=== PATIENT | female | born 1935 | race Caucasian/White ===

== ENCOUNTER 2021-07-20 18:11 | Emergency (ER) | payer MEDICARE, SELFPAY ==
--- NOTE | ~2021-07-20 | XR_ITS ---
EXAMINATION: XR chest 1V portable EXAM DATE: 07/20/2021 19:35 INDICATION: Change in mental status. TECHNIQUE: Portable AP frontal chest x-ray was obtained. There is no prior study for comparison. FINDINGS: The lungs are clear. There are no pleural effusions. The cardiomediastinal silhouette is within normal limits. There is no pneumothorax suspected. There is left humeral head rotator cuff r epair anchor. There are old right rib fractures. Bones are osteopenic. IMPRESSION: No acute cardiopulmonary findings. Reviewed, dictated and finalized at location G.
[2021-07-20 18:31] VITALS: BP 107/68; PULSE 78; RESP 18; TEMP 36.4; O2SAT 98
--- NOTE | 2021-07-20 19:25 | ED.GENADULT ---
HPI - General Adult General Chief complaint: Shortness of Breath/Dyspnea Stated complaint: low O2 Time Seen by Provider: 07/20/21 19:04 History of Present Illness HPI narrative: Patient is a 86-year-old female that presents the emergency department with chief complaint of possible low O2 saturations. Per the EMS report the [facility] although when EMS arrived the patient was saturating in the upper 90s. The patient per the family has been a little bit more confused this week but was found to have a urinary tract infection and was reported to be started on antibiotics. The list of medications from the jail does not show evidence of the patient currently being on antibiotics but we are verifying with the facility at this time. The patient currently has no complaints and is commenting about seals and is putting her stuffed cat in the room. Review of Systems Review of Systems: A 10 system review of systems was completed on the patient and is negative except for what is stated in the HPI. Nursing and ancillary documentation was reviewed. PMFSH Comments Patient's past medical history significant for COPD dementia. Exam Narrative: GENERAL: Well-appearing, well-nourished, and in no acute distress. HEAD: Normocephalic, atraumatic. EYES: PERRLA and EOMI. ENT: Nares clear, no rhinorrhea or epistaxis. Mucous membranes moist. NECK: Supple. CHEST: Clear to auscultation. No respiratory distress. HEART: Regular rate and rhythm. No murmur heard. Normal peripheral pulses. ABDOMEN: Soft, nontender, nondistended, normal active bowel sounds. EXTREMITIES: Normal range of motion. No edema. SKIN: Warm, dry, no rash. NEURO: No focal deficits. Alert and pleasantly confused. PSYCH: Normal mood and affect. Course Vital Signs Vital signs: Vital Signs Temperature 36.4 C 07/20/21 18:31 Pulse Rate 78 07/20/21 18:31 Respiratory Rate 18 07/20/21 18:31 Blood Pressure 107/68 07/20/21 18:31 Pulse Oximetry 98 07/20/21 18:31 Temperature 36.4 C 07/20/21 18:31 Pulse Rate 82 07/20/21 19:30 Respiratory Rate 16 07/20/21 19:30 Blood Pressure 118/68 07/20/21 19:30 Pulse Oximetry 98 07/20/21 19:30 Medical Decision Making Vital Signs Vital Signs: Vital Signs Temperature 36.4 C 07/20/21 18:31 Pulse Rate 78 07/20/21 18:31 Respiratory Rate 18 07/20/21 18:31 Blood Pressure 107/68 07/20/21 18:31 Pulse Oximetry 98 07/20/21 18:31 Temperature 36.4 C 07/20/21 18:31 Pulse Rate 82 07/20/21 19:30 Respiratory Rate 16 07/20/21 19:30 Blood Pressure 118/68 07/20/21 19:30 Pulse Oximetry 98 07/20/21 19:30 Lab Data Result diagrams: 07/20/21 20:19 07/20/21 20:19 Labs: Lab Results 07/20/21 07/20/21 07/20/21 Range/Units 19:54 20:19 20:19 WBC 10.2 H (4.5-10.0) K/mm3 RBC 4.44 (4.2-5.4) M/mm3 Hgb 12.1 (12.0-15.0) g/dL Hct 39.5 (37.0-47.0) % MCV 89.0 (80-100) fl MCH 27.3 (26-34) pg MCHC 30.6 L (32-36) g/dl RDW 15.4 H (11.5-14.5) % Plt Count 107 L (150-375) k/mm3 MPV 11.9 H (7.4-10.4) fl Immature Gran % (Auto) 0.4 (0-0.5) % Neut % (Auto) 92.7 H (45.5-73.1) % Lymph % (Auto) 2.9 L (18.3-44.2) % Hendry % (Auto) 2.6 (2.6-8.5) % Eos % (Auto) 1.2 (0-4.4) % Baso % (Auto) 0.2 (0.2-1.2) % Lymph # (Auto) 0.30 L (0.9-3.2) K/mm3 Hendry # (Auto) 0.3 (0.1-0.6) K/mm3 Eos # (Auto) 0.1 (0-0.3) K/mm3 Baso # (Auto) 0.0 (0.0-0.1) K/mm3 Abs Immat Gran (auto) 0.04 H (0.00-0.031) K/mm3 Absolute Neuts (auto) 9.5 H (1.3-6.7) K/mm3 Absolute Nucleated RBC 0.0 (0.0-0.012) K/mm3 Nucleated RBC % 0.0 (0.0-0.2) % PT (11.1-14.7) Seconds INR APTT (22.3-36.8) SECONDS Sodium (137-145) mmol/L Potassium (3.4-5.0) mmol/L Chloride (98-107) mmol/L Carbon Dioxide (22-30) mmol/L Anion Gap (8-16) m
[2021-07-20 19:30] VITALS: BP 118/68; PULSE 82; RESP 16; O2SAT 98
[2021-07-20 19:55] LABS: Alveolar/Arterial O2 Gradient 50.6 mmHg; Device ROOM AIR; Fractional Inspired Oxygen 21 %; HCO3 ABG 19.8 mEq/l (22.0-26.0); Modified Allen's Test Pass; Oxygen Content ABG 16.6 %vol (16.0-22.0); Oxygen Saturation ABG 91.4 % (95.0-100.0); Oxyhemoglobin 90.9 % THb (90.0-100.0); PCO2 ABG 32.6 mmHg (35.0-45.0); PO2 ABG 60.1 mmHg (80.0-100.0); PO2 FiO2 Ratio Arterial Blood 2.86 %; Site Drawn RIGHT RADIAL; pH ABG 7.402 (7.350-7.450)
[2021-07-20 20:30] VITALS: BP 118/68; PULSE 88; RESP 16; TEMP 36.8; O2SAT 97
[2021-07-20 20:41] LABS: SARS-CoV-2 RNA PCR Negative
[2021-07-20 20:41] LABS: Basophils Percent Auto 0.2 % (0.2-1.2); Eosinophils Absolute Auto 0.1 K/mm3 (0-0.3); Eosinophils Percent Auto 1.2 % (0-4.4); Hematocrit 39.5 % (37.0-47.0); Hemoglobin 12.1 g/dL (12.0-15.0); Immature Granulocyte Absolute 0.04 K/mm3 (0.00-0.031); Immature Granulocyte Percent A 0.4 % (0-0.5); Lymphocytes Percent Auto 2.9 % (18.3-44.2); Mean Corpuscular HGB Conc 30.6 g/dl (32-36); Mean Corpuscular Hemoglobin 27.3 pg (26-34); Mean Platelet Volume 11.9 fl (7.4-10.4); Monocytes Absolute Auto 0.3 K/mm3 (0.1-0.6); Monocytes Percent Auto 2.6 % (2.6-8.5); Neutrophils Absolute Auto 9.5 K/mm3 (1.3-6.7); Neutrophils Percent Auto 92.7 % (45.5-73.1); Platelet Count Result 107 k/mm3 (150-375); Red Blood Count 4.44 M/mm3 (4.2-5.4); Red Cell Distribution Width 15.4 % (11.5-14.5); White Blood Count 10.2 K/mm3 (4.5-10.0)
[2021-07-20 20:52] LABS: Add Urine Microscopic? YES; Alanine Aminotransferase 16 U/L (4-35); Albumin Level 4.2 g/dL (3.5-5.1); Alkaline Phosphatase 79 U/L (38-126); Anion Gap 9 mmol/L (8-16); Appearance Urine Cloudy (Clear); Aspartate Amino Transferase 29 U/L (14-36); Bacteria Urine Trace /hpf; Bilirubin Urine Negative (Negative); Bilirubin,Total 0.6 mg/dL (0.2-1.3); Blood Urea Nitrogen 26 mg/dL (7-17); Blood Urine Negative (Negative); Calcium 8.6 mg/dL (8.4-10.2); Carbon Dioxide 25 mmol/L (22-30); Chloride 103 mmol/L (98-107); Color Urine Yellow (Yellow); Estimated Glomerular Filt Rate 47; Glucose 149 mg/dL (65-110); Glucose Urine UA Negative (Negative); Ketones Urine Negative (Negative); Leukocyte Esterase Ur Trace LEU/UL (Negative); Magnesium 1.9 mg/dL (1.6-2.3); Mucus Urine Rare /lpf; Nitrate Urine Negative (Negative); Protein Urine Negative (Negative); RBC Urine 0-2 /hpf (0-2); Sodium 137 mmol/L (137-145); Specific Grav Ur 1.012 (1.001-1.035); Urobilinogen Urine Negative mg/dL (<2.0)
[2021-07-20 20:55] LABS: Lactic Acid Reflex 2.7 mmol/L (0.7-2.1)
[2021-07-20 20:56] LABS: Prothrombin Time 13.1 Seconds (11.1-14.7)
[2021-07-20 21:04] LABS: NT Pro B Type Natriuretic Pept 567 pg/mL (5-100); Troponin I < 0.012 ng/mL (0.000-0.034)
[2021-07-20] MEDS: cefTRIAXone 2 GM in SODIUM CHLORIDE 0.9% IV 100 ML 200 ML IVPB (21:21)
[2021-07-20 21:30] VITALS: BP 114/70; PULSE 82; RESP 14; TEMP 36.8; O2SAT 96
--- NOTE | 2021-07-20 21:31 | PC.NURSE ---
EKG TO BE CANCELED PER ERP
[2021-07-20 23:37] LABS: Reflex Lactic Acid Yes or No Add Lactic
== END 2021-07-20 22:10 ==
PROVIDERS: Emergency Provider Emergency Medicine
DX: N39.0 Urinary tract infection, site not specified (principal); Z20.822 Contact with and (suspected) exposure to COVID-19; J44.9 Chronic obstructive pulmonary disease, unspecified; F03.90 Unspecified dementia, unspecified severity, without behavioral disturbance, psychotic disturbance, mood disturbance, and anxiety; R06.02 Shortness of breath
CPT/HCPCS: 36415; 36600; 71045; 80053; 81001; 82805; 83605; 83735; 83880; 84484; 85025; 85610; 85730; 87040; 87077; 87086; 87186; 96365; 99284; C9803; J0696; U0003; U0005

== ENCOUNTER 2021-07-26 21:47 | Inpatient (IN) | payer MEDICARE, SELFPAY ==
--- NOTE | ~2021-07-26 | XR_ITS ---
EXAMINATION: XR chest 1V portable INDICATION: Transient alteration of awareness TECHNIQUE: Portable AP chest at 2235 hours COMPARISON: 07/20/2021 FINDINGS: The lungs are free of acute opacities. There is no pleural effusion or pneumothorax. The nv rdia mediastinal silhouette is normal. IMPRESSION: 1. No acute cardiopulmonary abnormality. Reviewed, dictated and finalized at location A.
[2021-07-26 21:47] VITALS: BP 150/71; PULSE 56; RESP 20; O2SAT 100
--- NOTE | 2021-07-26 22:31 | PC.NURSE ---
This RN attempted to al
--- NOTE | 2021-07-26 22:32 | PC.NURSE ---
This RN attempted to call [facility] for more information about what antibiotic pt was taking for UTI. Was informed that there was not a nurse on duty at this time.
[2021-07-26 22:55] VITALS: BP 133/62; PULSE 58; RESP 23
[2021-07-26 22:59] LABS: Basophils Percent Auto 0.5 % (0.2-1.2); Eosinophils Absolute Auto 0.2 K/mm3 (0-0.3); Eosinophils Percent Auto 5.2 % (0-4.4); Hematocrit 34.8 % (37.0-47.0); Hemoglobin 10.8 g/dL (12.0-15.0); Immature Granulocyte Absolute 0.02 K/mm3 (0.00-0.031); Immature Granulocyte Percent A 0.5 % (0-0.5); Lymphocytes Absolute Auto 1.28 K/mm3 (0.9-3.2); Mean Corpuscular Hemoglobin 27.7 pg (26-34); Mean Corpuscular Volume 89.2 fl (80-100); Mean Platelet Volume 10.4 fl (7.4-10.4); Monocytes Absolute Auto 0.4 K/mm3 (0.1-0.6); Monocytes Percent Auto 9.4 % (2.6-8.5); Neutrophils Absolute Auto 2.3 K/mm3 (1.3-6.7); Neutrophils Percent Auto 54.4 % (45.5-73.1); Platelet Count Result 148 k/mm3 (150-375); Red Cell Distribution Width 15.6 % (11.5-14.5); White Blood Count 4.3 K/mm3 (4.5-10.0)
[2021-07-26 23:03] LABS: Add Urine Microscopic? YES; Appearance Urine Cloudy (Clear); Bilirubin Urine Negative (Negative); Color Urine Yellow (Yellow); Glucose Urine UA Negative (Negative); Ketones Urine Trace mg/dL (Negative); Leukocyte Esterase Ur 1+ LEU/UL (Negative); Mucus Urine Rare /lpf; Nitrate Urine Positive (Negative); Protein Urine 1+ mg/dL (Negative); RBC Urine 0-2 /hpf (0-2); Specific Grav Ur 1.018 (1.001-1.035); Squamous Epithelial Cell Urine Rare /hpf (Few); Urobilinogen Urine Negative mg/dL (<2.0); WBC Urine 16-20 /hpf
[2021-07-26 23:11] LABS: Blood Urine Negative (Negative)
[2021-07-26 23:12] LABS: Alanine Aminotransferase 16 U/L (4-35); Albumin Level 3.7 g/dL (3.5-5.1); Alkaline Phosphatase 75 U/L (38-126); Anion Gap 5 mmol/L (8-16); Aspartate Amino Transferase 27 U/L (14-36); Bilirubin,Total 0.4 mg/dL (0.2-1.3); Blood Urea Nitrogen 22 mg/dL (7-17); Calcium 8.6 mg/dL (8.4-10.2); Carbon Dioxide 29 mmol/L (22-30); Chloride 107 mmol/L (98-107); Estimated Glomerular Filt Rate 53; Glucose 80 mg/dL (65-110); Potassium 3.7 mmol/L (3.4-5.0); Sodium 141 mmol/L (137-145)
--- NOTE | 2021-07-26 23:24 | PC.NURSE ---
Pt. requested jello or some kind of snack . This tech got permission from RN and MD that food was okay for pt. Applesauce and Apple juice given.
--- NOTE | 2021-07-26 23:36 | ED.GENADULT ---
HPI - General Adult General Chief complaint: Altered Mental Status Stated complaint: AMS, responsive to pain Time Seen by Provider: 07/26/21 22:06 History of Present Illness HPI narrative: Patient is an 86-year-old female with history of dementia presents to the ER with altered mental status. According to family long term patient was acting more confused throughout the day. Tonight patient was not responding to painful stimuli for long term and patient's daughter. Thus it was decided patient should come be evaluated in the ER. Patient recently seen in the ER and evaluated for UTI. She received some IV ceftriaxone and has been receiving Macrobid at the long term. Urine culture shows E. coli resistant to Macrobid. No reports of patient being incontinent or febrile at the long term. Related Data Home Medications Medication Instructions Recorded Confirmed ferrous sulfate [Slow Release Iron] 45 mg PO BID 07/26/21 07/27/21 vcvshaztymb-avbhliidx-ikyixvxa 1 inh INHALATION DAILY 07/26/21 07/27/21 [Trelegy Ellipta] pantoprazole 40 mg PO BID 07/26/21 07/27/21 pravastatin 20 mg PO HS 07/26/21 07/27/21 quetiapine 25 mg PO BID 07/26/21 07/27/21 acetaminophen 650 mg PO BID 07/27/21 07/27/21 amlodipine 5 mg PO DAILY 07/27/21 07/27/21 aspirin 81 mg PO DAILY 07/27/21 07/27/21 calcium citrate-vitamin D3 1 tablet PO BID 07/27/21 07/27/21 [Calcium Citrate + D] celecoxib 100 mg PO BID 07/27/21 07/27/21 dextromethorphan-guaifenesin 1 tablet PO BID PRN 07/27/21 07/27/21 [Mucinex DM] emollient combination no.72 1 ea TOPICAL BID 07/27/21 07/27/21 [Eucerin Intensive Repair] irbesartan 300 mg PO DAILY 07/27/21 07/27/21 loratadine 10 mg PO DAILY 07/27/21 07/27/21 lorazepam 0.5 mg PO BID PRN 07/27/21 07/27/21 melatonin 5 mg PO HS 07/27/21 07/27/21 memantine 5 mg PO BID 07/27/21 07/27/21 menthol [Icy Hot (menthol)] 1 patch TOPICAL DAILY 07/27/21 07/27/21 metoprolol succinate 100 mg PO DAILY 07/27/21 07/27/21 mirtazapine 15 mg PO HS 07/27/21 07/27/21 multivitamin [TAB A BERENICE] 1 tablet PO DAILY 07/27/21 07/27/21 mupirocin 1 applic TOPICAL BID 07/27/21 07/27/21 suvorexant [Belsomra] 10 mg PO HS 07/27/21 07/27/21 Allergies Allergy/AdvReac Type Severity Reaction Status Date / Time HI Inhibitors Allergy Unknown Verified 07/26/21 22:11 atorvastatin Allergy Unknown Verified 07/26/21 22:11 famotidine Allergy Unknown Verified 07/26/21 22:11 ibuprofen Allergy Unknown Verified 07/26/21 22:11 methylprednisolone Allergy Unknown Verified 07/26/21 22:11 rosuvastatin Allergy Unknown Verified 07/26/21 22:11 Review of Systems Review of Systems: ROS unobtainable: Yes unobtainable due to mental status [facility] Family History Family History (Updated 07/27/21 @ 01:40 by Angela Ricks RN) Father Heart disease Mother Heart disease Social History Social History Years smoked: 70 Smoking status: Former smoker Tobacco type: cigarettes Alcohol intake: never Substance use: never Spiritual care concerns: No Exam Narrative: GENERAL: Well-appearing, well-nourished, and in no acute distress. HEAD: Normocephalic, atraumatic. ENT: Mucous membranes moist. CHEST: Clear to auscultation. No respiratory distress. HEART: Bradycardic and regular. Normal peripheral pulses. ABDOMEN: Soft, nontender, nondistended. EXTREMITIES: Normal range of motion. No edema. SKIN: Warm, dry, no rash. NEURO: Alert and oriented x1. PSYCH: Normal mood and affect. Course Course Emergency Course: Admit to hospitalist service. Patient with ESBL positive E. coli infection. Will start on Zosyn. Vital Signs Vital signs: Vital Signs Pulse Rate 56 L 07/26/21 21:47 Respiratory Rate 20 07/26/21 21:47 Blood Pressure 150/71 H 07/26/21 21:47 Pulse Oximetry 100 04/02/22 21:47 Temperature 97.3 F L 07/27/21 05:50 Pulse Rate 55 L 07/27/21 05:50 Respiratory Rate 14
--- NOTE | 2021-07-26 23:40 | PM.IMHP ---
H&P: HPI History of Present Illness Date/Time: 07/26/21 23:40 Chief Complaint: Altered mental status. Narrative: This is an 86-year-old female with past medical history significant for Alzheimer's dementia, [facility], hypertension. Patient was brought for evaluation to the emergency room after she was noted to be very sleepy and not participating in activities she was not been her usual most of the history has been who is at bedside who explains that she is very active. Preliminary workup was significant for urinalysis with numerous WBCs present. Patient has been admitted for further evaluation, management and treatment. Review of Systems Review of Systems: ROS unobtainable: Yes unobtainable due to medical condition (Advanced dementia) and unobtainable due to mental status (Delirium) [facility] Family History Family History (Updated 07/27/21 @ 01:40 by Angela Ricks RN) Father Heart disease Mother Heart disease Social History Social History Years smoked: 70 Smoking status: Former smoker Tobacco type: cigarettes Alcohol intake: never Substance use: never Spiritual care concerns: No Meds Home Medications and Allergies Home Medications Medication Instructions Recorded Confirmed Type ferrous sulfate [Slow Release Iron] 45 mg PO BID 07/26/21 07/27/21 History eaozqmeknhl-htufsujye-pjwbwywr 1 inh INHALATION DAILY 07/26/21 07/27/21 History [Trelegy Ellipta] pantoprazole 40 mg PO BID 07/26/21 07/27/21 History pravastatin 20 mg PO HS 07/26/21 07/27/21 History quetiapine 25 mg PO BID 07/26/21 07/27/21 History acetaminophen 650 mg PO BID 07/27/21 07/27/21 History amlodipine 5 mg PO DAILY 07/27/21 07/27/21 History aspirin 81 mg PO DAILY 07/27/21 07/27/21 History calcium citrate-vitamin D3 1 tablet PO BID 07/27/21 07/27/21 History [Calcium Citrate + D] celecoxib 100 mg PO BID 07/27/21 07/27/21 History dextromethorphan-guaifenesin 1 tablet PO BID PRN 07/27/21 07/27/21 History [Mucinex DM] emollient combination no.72 1 ea TOPICAL BID 07/27/21 07/27/21 History [Eucerin Intensive Repair] irbesartan 300 mg PO DAILY 07/27/21 07/27/21 History loratadine 10 mg PO DAILY 07/27/21 07/27/21 History lorazepam 0.5 mg PO BID PRN 07/27/21 07/27/21 History melatonin 5 mg PO HS 07/27/21 07/27/21 History memantine 5 mg PO BID 07/27/21 07/27/21 History menthol [Icy Hot (menthol)] 1 patch TOPICAL DAILY 07/27/21 07/27/21 History metoprolol succinate 100 mg PO DAILY 07/27/21 07/27/21 History mirtazapine 15 mg PO HS 07/27/21 07/27/21 History multivitamin [TAB A BERENICE] 1 tablet PO DAILY 07/27/21 07/27/21 History mupirocin 1 applic TOPICAL BID 07/27/21 07/27/21 History suvorexant [Belsomra] 10 mg PO HS 07/27/21 07/27/21 History Allergies Allergy/AdvReac Type Severity Reaction Status Date / Time HI Inhibitors Allergy Unknown Verified 07/26/21 22:11 atorvastatin Allergy Unknown Verified 07/26/21 22:11 famotidine Allergy Unknown Verified 07/26/21 22:11 ibuprofen Allergy Unknown Verified 07/26/21 22:11 methylprednisolone Allergy Unknown Verified 07/26/21 22:11 rosuvastatin Allergy Unknown Verified 07/26/21 22:11 Vital Signs Vital Signs - 24 hr 07/26/21 21:47 07/26/21 22:55 Pulse Rate 56 L 58 L Respiratory Rate 20 23 H Blood Pressure 150/71 H 133/62 Pulse Oximetry 100 Exam Narrative: Patient is laying in bed Const: General: comfortable, no acute distress, well developed and patient obtunded Nutritional Appearance: thin Orientation/consciousness: oriented to person HENMT: Head: normal to inspection, normocephalic and atraumatic Ears: hearing grossly normal bilaterally Face and sinus: normal facial exam Mouth: Yes Normal oral and palatal mucosa present Eyes: General: appearance normal, both eyes and all related structures Alignment and Position: alignment normal Sclera: sclerae normal Pupils: Equal, r
--- NOTE | 2021-07-27 00:27 | PC.NURSE ---
Per housekeeping worker, one visitor may stay with pt overnight.
[2021-07-27 00:41] VITALS: BP 143/102; PULSE 56; RESP 18; O2SAT 94
--- NOTE | 2021-07-27 00:41 | PC.NURSE ---
Pt resting/sleeping on stretcher, family at bedside. Updated on POC.
[2021-07-27 01:12] VITALS: BP 130/59; PULSE 59; RESP 16; TEMP 36.9; O2SAT 97
[2021-07-27 03:49] VITALS: O2SAT 94
[2021-07-27 05:50] VITALS: BP 145/63; PULSE 55; RESP 14; TEMP 36.3; O2SAT 93
[2021-07-27 07:53] LABS: Basophils Percent Auto 0.6 % (0.2-1.2); Eosinophils Absolute Auto 0.2 K/mm3 (0-0.3); Eosinophils Percent Auto 4.4 % (0-4.4); Hematocrit 36.7 % (37.0-47.0); Hemoglobin 11.4 g/dL (12.0-15.0); Immature Granulocyte Absolute 0.01 K/mm3 (0.00-0.031); Immature Granulocyte Percent A 0.2 % (0-0.5); Lymphocytes Absolute Auto 1.03 K/mm3 (0.9-3.2); Lymphocytes Percent Auto 20.4 % (18.3-44.2); Mean Corpuscular HGB Conc 31.1 g/dl (32-36); Mean Corpuscular Hemoglobin 27.3 pg (26-34); Mean Platelet Volume 10.4 fl (7.4-10.4); Monocytes Absolute Auto 0.4 K/mm3 (0.1-0.6); Monocytes Percent Auto 7.7 % (2.6-8.5); Neutrophils Absolute Auto 3.4 K/mm3 (1.3-6.7); Neutrophils Percent Auto 66.7 % (45.5-73.1); Platelet Count Result 160 k/mm3 (150-375); Red Blood Count 4.17 M/mm3 (4.2-5.4); Red Cell Distribution Width 15.6 % (11.5-14.5)
[2021-07-27 08:03] LABS: Anion Gap 5 mmol/L (8-16); Blood Urea Nitrogen 20 mg/dL (7-17); Calcium 8.4 mg/dL (8.4-10.2); Carbon Dioxide 27 mmol/L (22-30); Chloride 108 mmol/L (98-107); Estimated Glomerular Filt Rate 53; Glucose 88 mg/dL (65-110); Potassium 3.8 mmol/L (3.4-5.0); Sodium 140 mmol/L (137-145)
[2021-07-27] MEDS: FLUTICASONE/UMECLIDIN/VILANTER 100-62.5-25 MCG ELLIPTA 1 PUFF INHALATION (08:19)
[2021-07-27] MEDS: ACETAMINOPHEN 325 MG TABLET 650 MG PO ×2 (09:12→16:29)
[2021-07-27] MEDS: QUEtiapine FUMARATE 25 MG TABLET PO ×2 (09:12→20:24)
[2021-07-27] MEDS: FERROUS SULFATE DRIED 142 MG TABCR PO ×2 (09:12→16:29)
[2021-07-27] MEDS: IRBESARTAN 150 MG TABLET 300 MG PO (09:12)
[2021-07-27] MEDS: amLODIPine BESYLATE 5 MG TABLET PO (09:12)
[2021-07-27] MEDS: MEMANTINE 5 MG TABLET PO ×2 (09:12→16:29)
[2021-07-27] MEDS: PANTOPRAZOLE 40 MG TABLET PO ×2 (09:12→20:24)
[2021-07-27] MEDS: MULTIVITAMINS THERAPEUTIC TAB (*BKC) 1 TABLET PO (09:12)
[2021-07-27] MEDS: ASPIRIN 81 MG ENTERIC TABLET PO (09:12)
[2021-07-27] MEDS: EUCERIN CREAM 120 GM JAR 1 APPLIC TOPICAL ×2 (09:13→20:24)
[2021-07-27] MEDS: MUPIROCIN 2% OINT 22 GM TUBE 1 APPLIC TOPICAL ×2 (09:13→20:24)
--- NOTE | 2021-07-27 09:49 | PM.IMPN ---
Progress Note: A&P Assessment and Plan (1) AMS (altered mental status): Code(s): R41.82 - Altered mental status, unspecified Status: Acute Assessment and Plan: Likely 2/[address] head as patient is improving at this time. -Check TSH with AM labs -Continue Zosyn for UTI Supportive care (2) Urinary tract infection: Code(s): N39.0 - Urinary tract infection, site not specified Status: Acute Assessment and Plan: Improved wakefulness. UCX from 07/20 shows ESBL E. coli only sensitive to ertapenem and zosyn. Will continue zosyn for now. For discharge when returnt to [facility] patient can be switched to ertapenem dailly dosing. 07/26 UCX pending. -Continue piperacillin-tazobactam #2 -May need Urology consult versus outpatient follow up with Urolology as patient has had multiple UTIs recently. (3) Alzheimer's dementia: Code(s): G30.9 - Alzheimer's disease, unspecified; F02.80 - Dementia in other diseases classified elsewhere without behavioral disturbance Status: Acute Assessment and Plan: Continue memantine (4) Hypertension: Code(s): I10 - Essential (primary) hypertension Status: Acute Assessment and Plan: Continue irbesartan. Controlledl. Subjective Date/time seen: Date of Service 07/27/21 08:49 Daughter is at bedside feeding the patient this morning. Brother is an sales support specialist. Daughter says at baseline patient knows her first name. She is always very energetic and moving around. Over the past year she has been successful with weight gain going from 89lbs to 130s now. Daughter feels she looks much better this morning but is still not back to her baseline. Should the patient not get to her baseline we discussed whether the daughter would want an aggressive workup of MRI, EEG, Neurology consult and she declined. Daughter says patient initially had a UTI two weeks ago and has been having difficulty since that time. Patient denies pain. Review of Systems Psychiatric: Psychiatric: Reports confusion Exam Narrative: GENERAL: NAD, cooperative, sitting in bed awake HEENT: Normocephalic, atraumatic, anicteric NECK: Supple CV: Normal S1, S2, RRR, No MRG RESP: CTAB, Normal work of breathing. Abdomen: Soft, non-tender, non-distended, +BS EXTREMITIES: Warm and well perfused, no clubbing, cyanosis, or edema. SKIN: warm, dry and intact. NEURO: Follows commands and will answer simple questions Objective Data Vital Signs Vital Signs: Vital Signs - 24 hr 07/26/21 21:47 07/26/21 22:55 07/27/21 00:41 Temperature Pulse Rate 56 L 58 L 56 L Respiratory Rate 20 23 H 18 Blood Pressure 150/71 H 133/62 143/102 H Pulse Oximetry 100 94 07/27/21 01:12 07/27/21 03:49 07/27/21 05:50 Temperature 98.5 F 97.3 F L Pulse Rate 59 L 55 L Respiratory Rate 16 14 Blood Pressure 130/59 L 145/63 H Pulse Oximetry 97 94 93 Intake/Output Intake/Output: Intake & Output 07/24/21 07/25/21 07/26/21 07/27/21 23:59 23:59 23:59 23:59 Intake Total 160 Output Total 300 Balance -300 160 Meds/Results Medications: Active Medications Generic Name Dose Route Start Last Admin Trade Name Freq PRN Reason Stop Dose Admin Acetaminophen 650 mg 07/27/21 00:07 Acetaminophen 325 Mg Tablet PO Q4H PRN Mild Pain (1-3) or Fever Acetaminophen 650 mg 07/27/21 09:00 07/27/21 09:12 Acetaminophen 325 Mg Tablet PO 08/26/21 08:59 650 mg BID IRIS Administration Hydrocodone Bitart/Acetaminophen 1 tab 07/27/21 00:07 Hydrocodone/Acetaminophen (*Crx) 5-325 Mg Tablet PO Q4H PRN Pain Rated 4-6 Amlodipine Besylate 5 mg 07/27/21 09:00 07/27/21 09:12 Amlodipine Besylate 5 Mg Tablet PO 5 mg DAILY IRIS Administration Aspirin 81 mg 07/27/21 09:00 07/27/21 09:12 Aspirin 81 Mg Enteric Tablet PO 08/26/21 08:59 81 mg DAILY IRIS Administration Calcium Citrate 1 tablet 07/27/21 09:00
[2021-07-27 14:38] VITALS: BP 104/38; PULSE 52; RESP 14; TEMP 36.3; O2SAT 93
[2021-07-27] MEDS: MELATONIN 5 MG TABLET PO (20:24)
[2021-07-27] MEDS: MIRTAZAPINE 15 MG TABLET PO (20:24)
[2021-07-27] MEDS: PRAVASTATIN SODIUM 20 MG TABLET PO (20:24)
[2021-07-27 22:00] VITALS: BP 118/47; PULSE 59; RESP 18; TEMP 36.3; O2SAT 96
[2021-07-28 05:13] LABS: Basophils Percent Auto 0.7 % (0.2-1.2); Eosinophils Absolute Auto 0.2 K/mm3 (0-0.3); Eosinophils Percent Auto 4.9 % (0-4.4); Hematocrit 39.8 % (37.0-47.0); Hemoglobin 12.2 g/dL (12.0-15.0); Immature Granulocyte Absolute 0.03 K/mm3 (0.00-0.031); Immature Granulocyte Percent A 0.7 % (0-0.5); Lymphocytes Absolute Auto 1.31 K/mm3 (0.9-3.2); Lymphocytes Percent Auto 30.6 % (18.3-44.2); Mean Corpuscular HGB Conc 30.7 g/dl (32-36); Mean Corpuscular Hemoglobin 27.3 pg (26-34); Mean Platelet Volume 10.2 fl (7.4-10.4); Monocytes Absolute Auto 0.4 K/mm3 (0.1-0.6); Monocytes Percent Auto 9.6 % (2.6-8.5); Neutrophils Absolute Auto 2.3 K/mm3 (1.3-6.7); Neutrophils Percent Auto 53.5 % (45.5-73.1); Platelet Count Result 149 k/mm3 (150-375); Red Blood Count 4.47 M/mm3 (4.2-5.4); Red Cell Distribution Width 15.5 % (11.5-14.5); White Blood Count 4.3 K/mm3 (4.5-10.0)
[2021-07-28 05:39] LABS: Anion Gap 5 mmol/L (8-16); Blood Urea Nitrogen 19 mg/dL (7-17); Calcium 8.6 mg/dL (8.4-10.2); Carbon Dioxide 28 mmol/L (22-30); Chloride 109 mmol/L (98-107); Estimated Glomerular Filt Rate 47; Glucose 85 mg/dL (65-110); Potassium 4.1 mmol/L (3.4-5.0); Sodium 142 mmol/L (137-145)
[2021-07-28 05:54] LABS: Iron 35 ug/dL (37-170)
[2021-07-28 06:00] VITALS: BP 134/62; PULSE 55; RESP 18; TEMP 35.9; O2SAT 96
[2021-07-28 06:03] LABS: Percent Iron Saturation 15 % (20-50)
[2021-07-28 08:00] VITALS: BP 125/59; PULSE 65; RESP 18; TEMP 37; O2SAT 92
--- NOTE | 2021-07-28 08:30 | P.PNIM_ITS ---
Progress Note: A&P Assessment and Plan (1) Acute metabolic encephalopathy: Code(s): G93.41 - Metabolic encephalopathy Status: Acute Assessment and Plan: * Secondary to UTI/Dementia * Looks like she just finished a course of Macrobid for ESBL * Await urine cultures * Continue dementia medications * Check TSH 1.630 * Continue Zosyn for UTI * Supportive care (2) Urinary tract infection: Code(s): N39.0 - Urinary tract infection, site not specified Status: Acute Assessment and Plan: * Improved wakefulness * UCX from 07/20 shows ESBL E. coli (ESBL) * Continue zosyn, will probably need to be switched to Ertapenem * will likely need to be on prolonged antibiotic therapy * Urine culture grew isolated gram negative bacilli * Looks like she finished a course of Macrobid, however, was not susceptible * Might need IV antibiotics, however, do not think that she failed PO antibiotics as she was put a an antibiotic that was not susceptible (3) Alzheimer's dementia: Code(s): G30.9 - Alzheimer's disease, unspecified; F02.80 - Dementia in other diseases classified elsewhere without behavioral disturbance Status: Acute Assessment and Plan: * Continue memantine and Seroquel * Trend mood (4) Hypertension: Code(s): I10 - Essential (primary) hypertension Status: Acute Assessment and Plan: * Current BP is 124/50 * Continue irbesartan, metoprolol, and amlodipine * Trend BP * Adjust therapy as indicated (5) Chronic anemia: Code(s): D64.9 - Anemia, unspecified Status: Acute Assessment and Plan: * H/H on arrival was 10.8/34.8, H/H 12.2/39.8 currently * MCV in the high 80s * Anemia labs shows iron 35, TIBC 233, % sat 15, Ferritin 69.40, B12 914, Folate >20.0 * Home iron is 45mg PO BID * Change to 324mg PO BID * Trend H/H * Seems to be from chronic disease * Continue to trend H/H * Supplement as indicated Time Spent With Patient Time with patient: Greater than 35 minutes Subjective Date/time seen: 07/28/21 08:30 Interval history: Date/Time: 07/26/21 23:40 Narrative: This is an 86-year-old female with past medical history significant for Alzheimer's dementia, [facility], hypertension. Patient was brought for evaluation to the emergency room after she was noted to be very sleepy and not participating in activities she was not been her usual most of the history has been who is at bedside who explains that she is very active. Preliminary workup was significant for urinalysis with numerous WBCs present. Patient has been admitted for further evaluation, management and treatment. Date/time seen: 07/27/21 08:49 Daughter is at bedside feeding the patient this morning. Brother is an mercerizer. Daughter says at baseline patient knows her first name. She is always very energetic and moving around. Over the past year she has been successful with weight gain going from 89lbs to 130s now. Daughter feels she looks much better this morning but is still not back to her baseline. Should the patient not get to her baseline we discussed whether the daughter would want an aggressive workup of MRI, EEG, Neurology consult and she declined. Daughter says patient initially had a UTI two weeks ago and has been having difficulty since that time. Patient denies pain Date/time seen: 07/28/21 0830 Patient has been through a lot her life. Talked to her daugh
--- NOTE | 2021-07-28 08:30 | PM.IMPN ---
Progress Note: A&P Assessment and Plan (1) Acute metabolic encephalopathy: Code(s): G93.41 - Metabolic encephalopathy Status: Acute Assessment and Plan: Secondary to UTI/Dementia Looks like she just finished a course of Macrobid for ESBL Await urine cultures Continue dementia medications Check TSH 1.630 Continue Zosyn for UTI Supportive care (2) Urinary tract infection: Code(s): N39.0 - Urinary tract infection, site not specified Status: Acute Assessment and Plan: Improved wakefulness UCX from 07/20 shows ESBL E. coli (ESBL) Continue zosyn, will probably need to be switched to Ertapenem will likely need to be on prolonged antibiotic therapy Urine culture grew isolated gram negative bacilli Looks like she finished a course of Macrobid, however, was not susceptible Might need IV antibiotics, however, do not think that she failed PO antibiotics as she was put a an antibiotic that was not susceptible (3) Alzheimer's dementia: Code(s): G30.9 - Alzheimer's disease, unspecified; F02.80 - Dementia in other diseases classified elsewhere without behavioral disturbance Status: Acute Assessment and Plan: Continue memantine and Seroquel Trend mood (4) Hypertension: Code(s): I10 - Essential (primary) hypertension Status: Acute Assessment and Plan: Current BP is 124/50 Continue irbesartan, metoprolol, and amlodipine Trend BP Adjust therapy as indicated (5) Chronic anemia: Code(s): D64.9 - Anemia, unspecified Status: Acute Assessment and Plan: H/H on arrival was 10.8/34.8, H/H 12.2/39.8 currently MCV in the high 80s Anemia labs shows iron 35, TIBC 233, % sat 15, Ferritin 69.40, B12 914, Folate >20.0 Home iron is 45mg PO BID Change to 324mg PO BID Trend H/H Seems to be from chronic disease Continue to trend H/H Supplement as indicated Time Spent With Patient Time with patient: Greater than 35 minutes Subjective Date/time seen: 07/28/21 08:30 Interval history: Date/Time: 07/26/21 23:40 Narrative: This is an 86-year-old female with past medical history significant for Alzheimer's dementia, patient resides at [facility], hypertension. Patient was brought for evaluation to the emergency room after she was noted to be very sleepy and not participating in activities she was not been her usual most of the history has been who is at bedside who explains that she is very active. Preliminary workup was significant for urinalysis with numerous WBCs present. Patient has been admitted for further evaluation, management and treatment. Date/time seen: 07/27/21 08:49 Daughter is at bedside feeding the patient this morning. Brother is an coat repair inspector. Daughter says at baseline patient knows her first name. She is always very energetic and moving around. Over the past year she has been successful with weight gain going from 89lbs to 130s now. Daughter feels she looks much better this morning but is still not back to her baseline. Should the patient not get to her baseline we discussed whether the daughter would want an aggressive workup of MRI, EEG, Neurology consult and she declined. Daughter says patient initially had a UTI two weeks ago and has been having difficulty since that time. Patient denies pain Date/time seen: 07/28/21 0830 Patient has been through a lot her life. Talked to her daughter due to patient not really wanting to talk or contribute much. Patient denied any nausea, vomiting. She did say she was having chest pain and shortness of breath however she did not appear to have a hard time breathing. I did talk to her daughter about her current problem of not really being treated for the correct UTI. We did go over her past medical history. Patient stated that her mom is far from baseline as the patient does not who she has. Review of Syste
[2021-07-28 08:33] LABS: Folic Acid > 20.0 ng/mL (2.76->20)
[2021-07-28] MEDS: amLODIPine BESYLATE 5 MG TABLET PO (08:38)
[2021-07-28] MEDS: IRBESARTAN 150 MG TABLET 300 MG PO (08:38)
[2021-07-28] MEDS: ACETAMINOPHEN 325 MG TABLET 650 MG PO ×2 (08:38→17:29)
[2021-07-28] MEDS: QUEtiapine FUMARATE 25 MG TABLET PO ×2 (08:38→20:16)
[2021-07-28] MEDS: FERROUS SULFATE DRIED 142 MG TABCR PO ×2 (08:38→17:29)
[2021-07-28] MEDS: ASPIRIN 81 MG ENTERIC TABLET PO (08:38)
[2021-07-28] MEDS: MULTIVITAMINS THERAPEUTIC TAB (*BKC) 1 TABLET PO (08:38)
[2021-07-28] MEDS: PANTOPRAZOLE 40 MG TABLET PO ×2 (08:38→20:16)
[2021-07-28] MEDS: MEMANTINE 5 MG TABLET PO ×2 (08:39→17:30)
[2021-07-28] MEDS: MUPIROCIN 2% OINT 22 GM TUBE 1 APPLIC TOPICAL ×2 (08:39→20:19)
[2021-07-28] MEDS: EUCERIN CREAM 120 GM JAR 1 APPLIC TOPICAL ×2 (08:39→20:19)
[2021-07-28] MEDS: ENOXAPARIN 30 MG/0.3 ML SYRINGE SUB-Q (08:41)
[2021-07-28] MEDS: FLUTICASONE/UMECLIDIN/VILANTER 100-62.5-25 MCG ELLIPTA 1 PUFF INHALATION (11:45)
[2021-07-28 11:49] VITALS: O2SAT 94
[2021-07-28 14:00] VITALS: BP 124/50; PULSE 70; RESP 18; TEMP 36.9; O2SAT 95
[2021-07-28 16:00] VITALS: BP 122/52; PULSE 72; RESP 18; TEMP 36.7; O2SAT 95
[2021-07-28] MEDS: MIRTAZAPINE 15 MG TABLET PO (20:16)
[2021-07-28] MEDS: PRAVASTATIN SODIUM 20 MG TABLET PO (20:16)
[2021-07-28] MEDS: MELATONIN 5 MG TABLET PO (20:16)
[2021-07-28 22:00] VITALS: BP 120/52; PULSE 71; RESP 18; TEMP 36.1; O2SAT 97
[2021-07-29 06:00] VITALS: BP 116/86; PULSE 74; RESP 20; TEMP 36.4; O2SAT 98
[2021-07-29 06:04] LABS: Basophils Percent Auto 0.9 % (0.2-1.2); Eosinophils Absolute Auto 0.2 K/mm3 (0-0.3); Eosinophils Percent Auto 4.9 % (0-4.4); Hematocrit 37.2 % (37.0-47.0); Hemoglobin 11.9 g/dL (12.0-15.0); Immature Granulocyte Absolute 0.01 K/mm3 (0.00-0.031); Immature Granulocyte Percent A 0.3 % (0-0.5); Lymphocytes Absolute Auto 1.21 K/mm3 (0.9-3.2); Lymphocytes Percent Auto 34.7 % (18.3-44.2); Mean Corpuscular Hemoglobin 27.9 pg (26-34); Mean Corpuscular Volume 87.1 fl (80-100); Mean Platelet Volume 10.9 fl (7.4-10.4); Monocytes Absolute Auto 0.3 K/mm3 (0.1-0.6); Monocytes Percent Auto 8.3 % (2.6-8.5); Neutrophils Absolute Auto 1.8 K/mm3 (1.3-6.7); Neutrophils Percent Auto 50.9 % (45.5-73.1); Platelet Count Result 146 k/mm3 (150-375); Red Blood Count 4.27 M/mm3 (4.2-5.4); Red Cell Distribution Width 15.3 % (11.5-14.5); White Blood Count 3.5 K/mm3 (4.5-10.0)
[2021-07-29 06:12] LABS: Alanine Aminotransferase 12 U/L (4-35); Albumin Level 3.5 g/dL (3.5-5.1); Alkaline Phosphatase 69 U/L (38-126); Anion Gap 8 mmol/L (8-16); Aspartate Amino Transferase 22 U/L (14-36); Bilirubin,Total 0.2 mg/dL (0.2-1.3); Blood Urea Nitrogen 19 mg/dL (7-17); Calcium 8.3 mg/dL (8.4-10.2); Carbon Dioxide 24 mmol/L (22-30); Chloride 110 mmol/L (98-107); Estimated Glomerular Filt Rate 53; Glucose 78 mg/dL (65-110); Magnesium 2.3 mg/dL (1.6-2.3); Potassium 3.6 mmol/L (3.4-5.0); Sodium 142 mmol/L (137-145)
[2021-07-29 08:00] VITALS: BP 118/82; PULSE 73; RESP 20; TEMP 36.4; O2SAT 98
[2021-07-29] MEDS: ENOXAPARIN 30 MG/0.3 ML SYRINGE SUB-Q (08:35)
[2021-07-29] MEDS: IRBESARTAN 150 MG TABLET 300 MG PO (08:35)
[2021-07-29] MEDS: ACETAMINOPHEN 325 MG TABLET 650 MG PO (08:35)
[2021-07-29] MEDS: ASPIRIN 81 MG ENTERIC TABLET PO (08:36)
[2021-07-29] MEDS: FERROUS SULFATE DRIED 142 MG TABCR PO (08:36)
[2021-07-29] MEDS: MEMANTINE 5 MG TABLET PO (08:36)
[2021-07-29] MEDS: amLODIPine BESYLATE 5 MG TABLET PO (08:36)
[2021-07-29] MEDS: MULTIVITAMINS THERAPEUTIC TAB (*BKC) 1 TABLET PO (08:36)
[2021-07-29] MEDS: QUEtiapine FUMARATE 25 MG TABLET PO (08:36)
[2021-07-29] MEDS: PANTOPRAZOLE 40 MG TABLET PO (08:37)
[2021-07-29] MEDS: MUPIROCIN 2% OINT 22 GM TUBE 1 APPLIC TOPICAL (08:38)
[2021-07-29] MEDS: EUCERIN CREAM 120 GM JAR 1 APPLIC TOPICAL (08:38)
[2021-07-29] MEDS: ALBUTEROL SULFATE NEB 2.5 MG/0.5 ML INH (09:07)
[2021-07-29] MEDS: FLUTICASONE/UMECLIDIN/VILANTER 100-62.5-25 MCG ELLIPTA 1 PUFF INHALATION (09:08)
[2021-07-29] MEDS: IPRATROPIUM BR 0.02% INH SOLN 0.5 MG/2.5 ML VIAL (09:08)
[2021-07-29 09:09] VITALS: O2SAT 94
--- NOTE | 2021-07-29 10:00 | P.DS_ITS ---
DS: Admitting Diagnosis Discharge Date 07/29/21 1000 Admitting Diagnosis UTI DS: Discharge Diagnosis Discharge Diagnosis (1) Acute metabolic encephalopathy: Code(s): G93.41 - Metabolic encephalopathy Status: Acute Assessment and Plan: * Looks like this has resolved for the time being * Secondary to UTI/Dementia * Looks like she just finished a course of Macrobid for ESBL * Await urine cultures * Continue dementia medications * Check TSH 1.630 * Continue Zosyn for UTI * Supportive care (2) Urinary tract infection: Code(s): N39.0 - Urinary tract infection, site not specified Status: Acute Assessment and Plan: * Improved wakefulness * UCX from 07/20 shows ESBL E. coli (ESBL) * Continue zosyn, will probably need to be switched to Ertapenem for DC * will likely need to be on prolonged antibiotic therapy x 10 days * Urine culture grew isolated gram negative bacilli * Looks like she finished a course of Macrobid, however, was not susceptible * Might need IV antibiotics, however, do not think that she failed PO antibiotics as she was put a an antibiotic that was not susceptible (3) Alzheimer's dementia: Code(s): G30.9 - Alzheimer's disease, unspecified; F02.80 - Dementia in other diseases classified elsewhere without behavioral disturbance Status: Acute Assessment and Plan: * Continue memantine and Seroquel * Trend mood (4) Hypertension: Code(s): I10 - Essential (primary) hypertension Status: Acute Assessment and Plan: * Current BP is 124/50 * Continue irbesartan, metoprolol, and amlodipine * Trend BP * Adjust therapy as indicated (5) Chronic anemia: Code(s): D64.9 - Anemia, unspecified Status: Acute Assessment and Plan: * H/H on arrival was 10.8/34.8, H/H 11.9/37.2 currently * MCV in the high 80s * Anemia labs shows iron 35, TIBC 233, % sat 15, Ferritin 69.40, B12 914, Folate >20.0 * Home iron is 45mg PO BID * Change to 324mg PO BID * Trend H/H * Seems to be from chronic disease * Continue to trend H/H * Supplement as indicated DS: Summary Hospital Course Hospital Course: Patient is an 86-year-old female with a past medical history of polio, COPD, kidney stones, bladder cancer with sling placement, Alzheimer's who presented to the ED with prolonged drowsiness, weakness, lethargy. UA was positive for UTI. UTI did grow ESBL. Patient was started on IV Zosyn due to previous susceptibilities of recent UTI. Patient had just recently finished a c ourse of Macrobid however this was not susceptible to the bacteria that was growing. Patient was also noted to be confused, unable to identify her daughter, unable to walk. Patient's daughter has been at bedside and has been communicated the plan of care. Patient's daughter would like the patient also have PT and OT and is where the patient will be discharged on IV antibiotics for total of 10 days. Patient denies any chest pain, shortness of breath, nausea, vomiting, diarrhea, constipation, weakness or fatigue patient does fissure tray peer it was noted that she is having issues with her thighs and having pain. Daughter states patient has returned back to baseline and is able to talk to her, knows who she is and is able to move around and carry complete conversations. Patient is stable for discharge at this time. Daughter, patient and I all agree to discharge and care transition mgr has found placement for her at [facility].
--- NOTE | 2021-07-29 10:00 | PM.DS ---
DS: Admitting Diagnosis Discharge Date 07/29/21 1000 Admitting Diagnosis UTI DS: Discharge Diagnosis Discharge Diagnosis (1) Acute metabolic encephalopathy: Code(s): G93.41 - Metabolic encephalopathy Status: Acute Assessment and Plan: Looks like this has resolved for the time being Secondary to UTI/Dementia Looks like she just finished a course of Macrobid for ESBL Await urine cultures Continue dementia medications Check TSH 1.630 Continue Zosyn for UTI Supportive care (2) Urinary tract infection: Code(s): N39.0 - Urinary tract infection, site not specified Status: Acute Assessment and Plan: Improved wakefulness UCX from 07/20 shows ESBL E. coli (ESBL) Continue zosyn, will probably need to be switched to Ertapenem for DC will likely need to be on prolonged antibiotic therapy x 10 days Urine culture grew isolated gram negative bacilli Looks like she finished a course of Macrobid, however, was not susceptible Might need IV antibiotics, however, do not think that she failed PO antibiotics as she was put a an antibiotic that was not susceptible (3) Alzheimer's dementia: Code(s): G30.9 - Alzheimer's disease, unspecified; F02.80 - Dementia in other diseases classified elsewhere without behavioral disturbance Status: Acute Assessment and Plan: Continue memantine and Seroquel Trend mood (4) Hypertension: Code(s): I10 - Essential (primary) hypertension Status: Acute Assessment and Plan: Current BP is 124/50 Continue irbesartan, metoprolol, and amlodipine Trend BP Adjust therapy as indicated (5) Chronic anemia: Code(s): D64.9 - Anemia, unspecified Status: Acute Assessment and Plan: H/H on arrival was 10.8/34.8, H/H 11.9/37.2 currently MCV in the high 80s Anemia labs shows iron 35, TIBC 233, % sat 15, Ferritin 69.40, B12 914, Folate >20.0 Home iron is 45mg PO BID Change to 324mg PO BID Trend H/H Seems to be from chronic disease Continue to trend H/H Supplement as indicated DS: Summary Hospital Course Hospital Course: Patient is an 86-year-old female with a past medical history of polio, COPD, kidney stones, bladder cancer with sling placement, Alzheimer's who presented to the ED with prolonged drowsiness, weakness, lethargy. UA was positive for UTI. UTI did grow ESBL. Patient was started on IV Zosyn due to previous susceptibilities of recent UTI. Patient had just recently finished a course of Macrobid however this was not susceptible to the bacteria that was growing. Patient was also noted to be confused, unable to identify her daughter, unable to walk. Patient's daughter has been at bedside and has been communicated the plan of care. Patient's daughter would like the patient also have PT and OT and is where the patient will be discharged on IV antibiotics for total of 10 days. Patient denies any chest pain, shortness of breath, nausea, vomiting, diarrhea, constipation, weakness or fatigue patient does fissure tray peer it was noted that she is having issues with her thighs and having pain. Daughter states patient has returned back to baseline and is able to talk to her, knows who she is and is able to move around and carry complete conversations. Patient is stable for discharge at this time. Daughter, patient and I all agree to discharge and child care center administrator has found placement for her at [facility]. Status at Discharge Functional status at discharge: uses cane/walker Time Spent with Patient Time attestation: Total time spent providing and/or coordinating discharge services:48 minutes Time spent: Greater than 30 minutes Specific discharge activities: Diagnostic testing, chart review, developing a treatment plan, education, care coordination documentation, physical exam, result review Exam Const: General: comfortable, no acute distress,
[2021-07-29 11:54] LABS: Rapid Plasma Reagin Non-Reactive (NonReactive)
[2021-07-29] MEDS: LORazepam (*CRX) 0.5 MG TABLET PO (13:23)
[2021-07-29 14:00] VITALS: BP 120/80; PULSE 74; RESP 20; TEMP 36.4; O2SAT 98
[2021-07-29] MEDS: LIDOCAINE HCL 1% LOCAL INJ 2 ML AMPUL 5 ML INFILTRATE (14:20)
[2021-07-29] MEDS: ERTAPENEM SODIUM 0.5 GM in SODIUM CHLORIDE 0.9% IV 50 ML IVPB (15:08)
[2021-07-29 15:45] LABS: EDCOVIDSCREEN Negative (Negative)
== END 2021-07-29 16:20 | DRG 689 ==
LOC: ANHED 22:06 → ANH2MED 07-27 00:33
PROVIDERS: Family Medicine; Admitting Provider Internal Medicine; Emergency Provider Emergency Medicine; Visit Provider Nurse Practitioner
DX: N39.0 Urinary tract infection, site not specified (principal); G93.41 Metabolic encephalopathy; Z16.12 Extended spectrum beta lactamase (ESBL) resistance; G30.9 Alzheimer's disease, unspecified; F02.80 Dementia in other diseases classified elsewhere, unspecified severity, without behavioral disturbance, psychotic disturbance, mood disturbance, and anxiety; I10 Essential (primary) hypertension; D64.9 Anemia, unspecified; J44.9 Chronic obstructive pulmonary disease, unspecified; Z20.822 Contact with and (suspected) exposure to COVID-19; Z79.82 Long term (current) use of aspirin; Z79.899 Other long term (current) drug therapy; Z85.51 Personal history of malignant neoplasm of bladder; Z86.12 Personal history of poliomyelitis; Z87.442 Personal history of urinary calculi; Z87.891 Personal history of nicotine dependence
CPT/HCPCS: 36415; 36569; 51701; 71045; 80048; 80053; 81001; 82607; 82728; 82746; 83540; 83550; 83735; 84443; 85025; 86592; 87077; 87086; 87186; 87426; 94640; 96365; 96366; 96372; 97161; 97165; 99285; A9270; C1751; C9803; G0378; J1335; J1650; J2543

== ENCOUNTER 2021-08-01 11:09 | Emergency (ER) | payer MEDICARE, SELFPAY ==
--- NOTE | ~2021-08-01 | XR_ITS ---
EXAMINATION: XR chest 1V portable DATE: 08/01/2021 11:51 INDICATION: PICC line removal TECHNIQUE: frontal view of the chest was obtained. COMPARISON: Chest radiograph date FINDINGS: Couple tiny calcified nodules in the left upper lung zone consistent with old granulomatous disease. Linear discoid atelectasis/scarring at the medial right lower lung zone. Several thin lines along the periphery of the right lower lung zone which could represent mild pulmonary edema or additional atel ectasis. No pneumothorax or pleural effusion. The cardiomediastinal silhouette is normal. Suture anch ors at the left humeral head consistent with prior rotator cuff repair. Mild thoracic dextro curvatur e. IMPRESSION: 1. Fine peripheral linear opacities at the right lower lung zone which could represent atelectasis or mild pulmonary edema. Reviewed, dictated and finalized at location B. IMPRESSION: 1. Fine peripheral linear opacities at the right lower lung zone which could re present atelectasis or mild pulmonary edema.
[2021-08-01 11:21] VITALS: BP 127/89; PULSE 72; RESP 18; TEMP 36.6; O2SAT 98
[2021-08-01] MEDS: LORazepam (*CRX) 0.5 MG TABLET PO (12:22)
[2021-08-01 13:50] LABS: Basophils Percent Auto 0.6 % (0.2-1.2); Eosinophils Absolute Auto 0.2 K/mm3 (0-0.3); Eosinophils Percent Auto 3.5 % (0-4.4); Hematocrit 37.8 % (37.0-47.0); Hemoglobin 11.3 g/dL (12.0-15.0); Immature Granulocyte Absolute 0.02 K/mm3 (0.00-0.031); Immature Granulocyte Percent A 0.4 % (0-0.5); Lymphocytes Absolute Auto 0.94 K/mm3 (0.9-3.2); Lymphocytes Percent Auto 18.3 % (18.3-44.2); Mean Corpuscular HGB Conc 29.9 g/dl (32-36); Mean Corpuscular Hemoglobin 27.4 pg (26-34); Mean Corpuscular Volume 91.5 fl (80-100); Mean Platelet Volume 10.8 fl (7.4-10.4); Monocytes Absolute Auto 0.3 K/mm3 (0.1-0.6); Monocytes Percent Auto 5.3 % (2.6-8.5); Neutrophils Absolute Auto 3.7 K/mm3 (1.3-6.7); Neutrophils Percent Auto 71.9 % (45.5-73.1); Platelet Count Result 141 k/mm3 (150-375); Red Blood Count 4.13 M/mm3 (4.2-5.4); Red Cell Distribution Width 15.5 % (11.5-14.5); White Blood Count 5.1 K/mm3 (4.5-10.0)
[2021-08-01 13:57] LABS: Alanine Aminotransferase 16 U/L (4-35); Alkaline Phosphatase 81 U/L (38-126); Anion Gap 8 mmol/L (8-16); Aspartate Amino Transferase 28 U/L (14-36); Bilirubin,Total 0.2 mg/dL (0.2-1.3); Blood Urea Nitrogen 18 mg/dL (7-17); Calcium 8.3 mg/dL (8.4-10.2); Carbon Dioxide 22 mmol/L (22-30); Chloride 111 mmol/L (98-107); Estimated CRCL calculation 29 ml/min; Estimated Glomerular Filt Rate 60; Glucose 87 mg/dL (65-110); Potassium 4.2 mmol/L (3.4-5.0); Sodium 141 mmol/L (137-145)
[2021-08-01] MEDS: ERTAPENEM 1 GM/NS 50 ML 1 GM/50 ML BAG IVPB (14:01)
--- NOTE | 2021-08-01 14:10 | PCCCNOTE ---
met with patient and daughter bedside. patient came from [facility] re[facility], was admitted there for IV abx. Per [facility] Henok, patient will not longer need iv abx, and would like to discharge to her assisted living. daughter states she resides at [facility]. CC called and confirmed with [facility] that they would accept back. They requested nurse to nurse report. [phone]. ED nurse made aware. CC will continue to follow for any other needs that may arise.
--- NOTE | 2021-08-01 14:17 | ED.GENADULT ---
HPI - General Adult General Chief complaint: Unspecified Stated complaint: picc pulled out Time Seen by Provider: 08/01/21 11:18 Source: RN notes reviewed History of Present Illness HPI narrative: Patient presents to emergency department from [facility] via private vehicle for PICC line replacement. Per the patient's daughter the patient has been admitted to our facility and recently discharge patient had ESBL in has been on ertapenem the patient had pulled out her PICC line last night her last dose of antibiotics was yesterday. Per the daughter she is here to get replaced that she still has 4 more days of antibiotics the patient has been doing well and had had altered mental status upon her admission but that has improved she has had some mild diarrhea per the daughter patient currently awake alert denies any fevers or chills Related Data Home Medications Medication Instructions Recorded Confirmed Trelegy Ellipta 1 inh INHALATION DAILY 07/26/21 07/27/21 ferrous sulfate 45 mg PO BID 07/26/21 07/27/21 pantoprazole 40 mg PO BID 07/26/21 07/27/21 pravastatin 20 mg PO HS 07/26/21 07/27/21 quetiapine 25 mg PO BID 07/26/21 07/27/21 Belsomra 10 mg PO HS 07/27/21 07/27/21 Eucerin Intensive Repair 1 ea TOPICAL BID 07/27/21 07/27/21 Icy Hot (menthol) 1 patch TOPICAL DAILY 07/27/21 07/27/21 Mucinex DM 1 tablet PO BID PRN 07/27/21 07/27/21 acetaminophen 650 mg PO BID 07/27/21 07/27/21 amlodipine 5 mg PO DAILY 07/27/21 07/27/21 aspirin 81 mg PO DAILY 07/27/21 07/27/21 calcium citrate-vitamin D3 1 tablet PO BID 07/27/21 07/27/21 [Calcium Citrate + D] celecoxib 100 mg PO BID 07/27/21 07/27/21 irbesartan 300 mg PO DAILY 07/27/21 07/27/21 loratadine 10 mg PO DAILY 07/27/21 07/27/21 melatonin 5 mg PO HS 07/27/21 07/27/21 memantine 5 mg PO BID 07/27/21 07/27/21 metoprolol succinate 100 mg PO DAILY 07/27/21 07/27/21 mirtazapine 15 mg PO HS 07/27/21 07/27/21 multivitamin 1 tablet PO DAILY 07/27/21 07/27/21 mupirocin 1 applic TOPICAL BID 07/27/21 07/27/21 Allergies Allergy/AdvReac Type Severity Reaction Status Date / Time HI Inhibitors Allergy Unknown Verified 07/26/21 22:11 atorvastatin Allergy Unknown Verified 07/26/21 22:11 famotidine Allergy Unknown Verified 07/26/21 22:11 ibuprofen Allergy Unknown Verified 07/26/21 22:11 methylprednisolone Allergy Unknown Verified 07/26/21 22:11 rosuvastatin Allergy Unknown Verified 07/26/21 22:11 Review of Systems Review of Systems: Gen.: Denies fevers or chills ENT: Denies congestion Respiratory: Denies shortness of breath CV: Denies chest pain GI: Denies abdominal pain nausea, emesis reports diarrhea see HPI Musculoskeletal: Denies back pain or muscle pain Neuro: Denies numbness, tingling, weakness or focal weakness Skin: Denies rash Except as documented, all other systems reviewed and negative [facility] Past Medical History Medical History (Updated 08/01/21 @ 14:22 by Delmer Hernandez DO) Hypertension Family History Family History (Updated 07/27/21 @ 01:40 by Angela Ricks RN) Father Heart disease Mother Heart disease Social History Social History Years smoked: 70 Smoking status: Former smoker Tobacco type: cigarettes Alcohol intake: never Substance use: never Spiritual care concerns: No Exam Narrative: APPEARANCE: No acute distress, nontoxic, resting in bed EYES: EOMI HEENT: Normocephalic, atraumatic, OMM RESPIRATORY: No respiratory distress Clear to auscultation bilaterally with no rhonchi wheezing or rales. CARDIOVASCULAR: Regular rate and rhythm without murmurs rubs or gallops. ABDOMINAL: Soft, nontender, nondistended, no rebound or guarding MUSCULOSKELETAl: Moves all extremities. No clubbing, cyanosis or edema. NEURO: Awake and alert x 1. Following commands, speech normal, no focal deficits SKIN:: Warm, dry. No rashes lesions or abrasions PSYCHIATRIC: Normal affect/mood, Course Course Emerg
--- NOTE | 2021-08-01 14:32 | PC.NURSE ---
taj called and report given
== END 2021-08-01 14:24 ==
PROVIDERS: Emergency Provider Emergency Medicine
DX: N39.0 Urinary tract infection, site not specified (principal); I10 Essential (primary) hypertension; F03.90 Unspecified dementia, unspecified severity, without behavioral disturbance, psychotic disturbance, mood disturbance, and anxiety; Z87.891 Personal history of nicotine dependence; Z79.82 Long term (current) use of aspirin; R91.8 Other nonspecific abnormal finding of lung field
CPT/HCPCS: 36415; 71045; 80053; 85025; 96365; 99284; A9270; C1751; J1335

== ENCOUNTER 2021-12-30 03:03 | Inpatient (IN) | payer MEDICARE, SELFPAY ==
[2021-12-30] VITALS (17 sets, daily range): BP systolic 130–219; BP diastolic 56–103; PULSE 49–70; RESP 12–24; TEMP 36.3–36.9; O2SAT 92–97; BMI 10.0
--- NOTE | ~2021-12-30 | XR_ITS ---
EXAMINATION: XR wrist LT min 3V DATE: 12/30/2021 04:44 INDICATION: Left wrist injury. TECHNIQUE: 3 views of left wrist were obtained. COMPARISON: None. FINDINGS: There is a transverse fracture of distal radial metaphysis. The distal fracture fragment de monstrates 9 mm dorsal displacement, impaction, and dorsal angulation. There is 11 degrees dorsal til t of the distal articular surface. There is a transverse fracture of distal ulnar metaphysis. The dis smith fracture fragment demonstrates 4 mm dorsal displacement, 3 mm ulnar displacement, impaction, and 14 degrees dorsal angulation. There is severe osteoarthritis of first carpometacarpal joint. IMPRESSION: 1. Transverse fractures of distal radial and ulnar metaphyses. Reviewed, dictated and finalized at location A.
--- NOTE | ~2021-12-30 | XR_ITS ---
EXAMINATION: XR surgery orthopedic DATE: 01/01/2022 16:35 INDICATION: Fixation of a left wrist fracture TECHNIQUE: 5 fluoroscopic images of the left wrist were obtained during procedure performed by Dr. Hamilton lowry. Radiologist was not present for the imaging or procedure. The amount of fluoroscopy time us ed during this procedure was 2.5 minutes. COMPARISON: None. FINDINGS: Again seen are comminuted extra-articular fractures of the distal left radial and ulnar metaphyses. I nterval reduction and percutaneous fixation of the fractures with 6 fixation pins. There is mild resi dual displacement of the fragments post reduction of the prior angulation and with near-anatomic alig nment at the level of the wrist joint. Additional fracture across the base of the ulnar styloid proce ss which is displaced a few millimeter radially. It is unclear whether the ulnar styloid fragment is fixed with one of the pins. No other fractures identified. 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 Moderate osteoarthritis at the triscaphe joint. IMPRESSION: 1. Fluoroscopy utilized during reduction and percutaneous pin fixation of comminuted fracture of the distal left radius and ulna which are in near anatomic alignment. Reviewed, dictated and finalized at location A. IMPRESSION: 1. Fluoroscopy utilized during reduction and percutaneous pin fixation of commi nuted fracture of the distal left radius and ulna which are in near anatomic al ignment.
--- NOTE | ~2021-12-30 | CT_ITS ---
EXAMINATION: CT brain wo con DATE: 12/30/2021 04:19 INDICATION: Fall. TECHNIQUE: Computed tomography (CT) of the head was performed without intravenous contrast. The mA wa s adjusted according to patient size. Iterative reconstruction technique was employed. The dose-lengt h product was 605.33 mGy-cm. COMPARISON: None FINDINGS: There is diffuse brain volume loss. There are scattered areas of low attenuation in the cer ebral white matter. There are prominent perivascular spaces in the bilateral basal ganglia. There is no intracranial hemorrhage, acute infarction, or abnormal intracranial mass lesion. The ventricles ar e normal in size. There are likely changes of ocular lens replacement surgeries. There is mild mucosa l thickening in the ethmoid sinuses. The mastoid air cells are normal. IMPRESSION: 1. Moderate nonspecific cerebral white matter disease, which likely represents chronic small vessel i schemic disease. Reviewed, dictated and finalized at location A. IMPRESSION: 1. Moderate nonspecific cerebral white matter disease, which likely represents chronic small vessel ischemic disease.
--- NOTE | ~2021-12-30 | XR_ITS ---
EXAMINATION: XR hip LT 2V w AP pelvis DATE: 12/30/2021 10:48 INDICATION: Left leg pain. TECHNIQUE: An anteroposterior view of the pelvis and 2 views of left hip were obtained. COMPARISON: None. FINDINGS: Bone alignment is normal. No fracture. There is mild osteoarthritis of the hips. There is a stent in the area of right common iliac artery. IMPRESSION: 1. Mild osteoarthritis of the hips. Reviewed, dictated and finalized at location A.
--- NOTE | ~2021-12-30 | XR_ITS ---
EXAMINATION: XR knee LT min 4V DATE: 12/30/2021 10:48 INDICATION: Left leg pain. TECHNIQUE: 4 views of left knee were obtained. COMPARISON: None. FINDINGS: Bone alignment is normal. No fracture. There is mild osteoarthritis of medial and patellofe moral compartments. There is chondrocalcinosis of the menisci. No knee joint effusion. IMPRESSION: 1. Mild left knee osteoarthritis. Reviewed, dictated and finalized at location A.
--- NOTE | ~2021-12-30 | XR_ITS ---
EXAMINATION: XR wrist LT 2V DATE: 12/30/2021 06:05 INDICATION: Distal left radius fracture. TECHNIQUE: 2 views of left wrist were obtained. COMPARISON: Left wrist radiographs at 4:29 AM FINDINGS: There is a comminuted fracture of distal radial metaphysis. The main distal fracture fragme nt demonstrates 10 mm dorsal displacement, impaction, and dorsal angulation. There is 16 degrees dors al tilt of the distal articular surface. There is a transverse fracture of distal ulnar metaphysis. T he distal fracture fragment demonstrates 6 mm dorsal displacement, impaction, and 33 degrees dorsal a ngulation. There is an avulsion fracture of the ulnar styloid. There is severe osteoarthritis of firs t carpometacarpal joint. IMPRESSION: 1. Comminuted fractures of distal radius and ulna. Reviewed, dictated and finalized at location A.
--- NOTE | ~2021-12-30 | US_ITS ---
EXAMINATION: US art doppler w press LE BI DATE: 12/31/2021 08:31 INDICATION: Peripheral arterial disease. TECHNIQUE: Segmental pressures and plethysmographic and Doppler waveforms of the brachial and lower e xtremity arteries were obtained. COMPARISON: None. FINDINGS: Right brachial artery pressure is 132 mm Hg. There is a cast on the left arm. Pressures were not measured in the thighs and below the knee due to the history of stents in uncertai n locations. The right ankle-brachial index (OSMANI) is 0.78 (normal >= 0.9-1.0). The right great toe-br achial index (TBI) is 0.35 (normal >= 0.65). Arterial Doppler waveforms are biphasic from common femo ral artery to the ankle. The left OSMANI is 0.70. The left TBI is 0.16. Arterial Doppler waveforms are biphasic from common femor al artery to the ankle. IMPRESSION: 1. Mildly decreased right OSMANI and moderately decreased left OSMANI, consistent with arterial occlusive d isease. Reviewed, dictated and finalized at location A. IMPRESSION: 1. Mildly decreased right OSMANI and moderately decreased left OSMANI, consistent wit h arterial occlusive disease.
[2021-12-30] MEDS: MORPHINE SULFATE (*CRX) 4 MG/ML INJ IV PUSH (03:42)
[2021-12-30] MEDS: SODIUM CHLORIDE 0.9% IV 100 ML 500 ML (03:42)
--- NOTE | 2021-12-30 04:49 | ED.GENADULT ---
HPI - General Adult General Chief complaint: Extremity Injury, Upper Stated complaint: Fall, wrist injury Time Seen by Provider: 12/30/21 03:08 History of Present Illness HPI narrative: Patient is an 86-year-old female with history of dementia who presents the ER status post fall. Deformity to the left wrist. Unsure if she hit her head. Able to move fingers and stents in the hand but can provide no history. Patient is not on any blood thinning medication. Related Data Home Medications Medication Instructions Recorded Confirmed fluticasone fur. 100 mcg-umeclid 1 inh inhalation DAILY 07/26/21 12/30/21 62.5 mcg-vilant 25 mcg inhalat.powder (Trelegy Ellipta) pantoprazole 40 mg tablet,delayed 40 mg PO BID 07/26/21 12/30/21 release pravastatin 20 mg tablet 20 mg PO HS 07/26/21 12/30/21 quetiapine 25 mg tablet 25 mg PO TID 07/26/21 12/30/21 acetaminophen 650 mg tablet 650 mg PO TID 07/27/21 12/30/21 amlodipine 5 mg tablet 5 mg PO DAILY 07/27/21 12/30/21 celecoxib 100 mg capsule 100 mg PO BID 07/27/21 12/30/21 emollient combination no.72 1 ea topical BID 07/27/21 12/30/21 (Eucerin Intensive Repair lotion) irbesartan 300 mg tablet 300 mg PO DAILY 07/27/21 12/30/21 loratadine 10 mg tablet 10 mg PO DAILY 07/27/21 12/30/21 memantine 5 mg tablet 5 mg PO BID 07/27/21 12/30/21 menthol 5 % topical patch (Icy Hot 1 patch topical DAILY 07/27/21 12/30/21 (menthol)) metoprolol succinate 100 mg 100 mg PO DAILY 07/27/21 12/30/21 tablet,extended release 24 hr multivitamin 1 tablet PO DAILY 07/27/21 12/30/21 mupirocin 2 % topical ointment 1 applic topical BID 07/27/21 12/30/21 aspirin 81 mg tablet,delayed 81 mg PO DAILY 12/30/21 12/30/21 release diclofenac sodium 1 % topical gel 1 ea topical QID 12/30/21 12/30/21 divalproex 125 mg capsule,delayed 250 mg PO BID 12/30/21 12/30/21 release sprinkle eszopiclone 2 mg tablet 2 mg PO HS 12/30/21 12/30/21 Allergies Allergy/AdvReac Type Severity Reaction Status Date / Time HI Inhibitors Allergy Unknown Verified 12/30/21 13:51 atorvastatin Allergy Unknown Verified 12/30/21 13:51 famotidine Allergy Unknown Verified 12/30/21 13:51 ibuprofen Allergy Unknown Verified 12/30/21 13:51 methylprednisolone Allergy Unknown Verified 12/30/21 13:51 rosuvastatin Allergy Unknown Verified 12/30/21 13:51 Review of Systems Review of Systems: ROS unobtainable: Yes unobtainable due to mental status PMFSH Past Medical History Medical History Alzheimer's dementia COPD (chronic obstructive pulmonary disease) E coli infection Fractured tarsal bone GERD (gastroesophageal reflux disease) Hypercholesterolemia Hypertension Left wrist fracture Neck fracture Pelvis fracture Peripheral vascular disease Polio Urinary bladder cancer 2017 Surgical History Surgical History H/O cardiac catheterization H/O cystoscopy S/P peripheral artery angioplasty with stent placement S/P rotator cuff repair Family History Family History Father Heart disease Mother Heart disease Social History Social History Social History: The patient resides at [facility]. She is and has 2 children. 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 She is a former smoker. She has 2 children and the daughter is the durable power trademark attorney for healthcare. Code status DNR Years smoked: 35 Smoking status: Former smoker Tobacco type: cigarettes Alcohol intake: never Substance use: never Spiritual care concerns: Yes (Yazdanism) Exam Narrative: GENERAL: Uncomfortable-appearing, well-nourished, and in no acute distress. HEAD: Normocephalic, atraumatic. EYES: PERRL and EOMI. NECK: Supple. CHES
[2021-12-30] MEDS: fentaNYL CITRATE INJ (*CRX) 100 MCG/2 ML VIAL 25 MCG IV PUSH (05:30)
[2021-12-30] MEDS: ceFAZolin 2 GM/D5W 50 ML 2 GM/50 ML BAG IVPB (06:19)
[2021-12-30 07:29] LABS: Basophils Percent Auto 0.4 % (0.2-1.2); Eosinophils Absolute Auto 0.1 K/mm3 (0-0.3); Eosinophils Percent Auto 1.1 % (0-4.4); Hematocrit 38.8 % (37.0-47.0); Hemoglobin 12.1 g/dL (12.0-15.0); Immature Granulocyte Absolute 0.01 K/mm3 (0.00-0.031); Immature Granulocyte Percent A 0.2 % (0-0.5); Mean Corpuscular HGB Conc 31.2 g/dl (32-36); Mean Corpuscular Hemoglobin 27.4 pg (26-34); Mean Corpuscular Volume 87.8 fl (80-100); Mean Platelet Volume 11.3 fl (7.4-10.4); Monocytes Absolute Auto 0.3 K/mm3 (0.1-0.6); Monocytes Percent Auto 5.9 % (2.6-8.5); Neutrophils Absolute Auto 3.7 K/mm3 (1.3-6.7); Neutrophils Percent Auto 81.4 % (45.5-73.1); Platelet Count Result 115 k/mm3 (150-375); Red Blood Count 4.42 M/mm3 (4.2-5.4); Red Cell Distribution Width 13.8 % (11.5-14.5); White Blood Count 4.6 K/mm3 (4.5-10.0)
[2021-12-30 07:42] LABS: Anion Gap 16 mmol/L (8-16); Blood Urea Nitrogen 24 mg/dL (7-17); Calcium 8.4 mg/dL (8.4-10.2); Carbon Dioxide 25 mmol/L (22-30); Chloride 101 mmol/L (98-107); Estimated Glomerular Filt Rate 60; Glucose 104 mg/dL (65-110); Potassium 3.9 mmol/L (3.4-5.0); Sodium 142 mmol/L (137-145)
--- NOTE | 2021-12-30 08:45 | PC.NURSE ---
Jeovany from ED Care Coordination in to eval pt
--- NOTE | 2021-12-30 08:59 | PCCCNOTE ---
Called to ED regarding proper placement for pt after fall and L wrist fracture. Currently pt resides at [facility] [place] assisted living and memory care. pt currently resting and is asleep from MSO4. I spoke with daughter SHERRY. Discussed options to moving to [facility] as indicated it would only be slightly more than current cost of [facility]. No specific number discussed. Daughter concerned that pt would become more confused and would deteriorate at a NH. I am currently attempting to contact [facility] for possible options.
--- NOTE | 2021-12-30 09:45 | PC.NURSE ---
PT in the department to erica pt
[2021-12-30 09:59] LABS: Appearance Urine Clear (Clear); Bilirubin Urine Negative (Negative); Blood Urine Negative (Negative); Color Urine Yellow (Yellow); Glucose Urine UA Negative (Negative); Ketones Urine Negative (Negative); Leukocyte Esterase Ur Negative LEU/UL (Negative); Nitrate Urine Negative (Negative); Protein Urine Negative (Negative); Specific Grav Ur 1.015 (1.001-1.035); Urobilinogen Urine 0.2 mg/dL (<2.0)
[2021-12-30 10:00] LABS: Add Urine Microscopic? NO
--- NOTE | 2021-12-30 10:30 | PC.NURSE ---
Patient to radiology
--- NOTE | 2021-12-30 11:14 | PCCCNOTE ---
Spoke with MICHELLE at [facility] and she had spoken with daughter. The DON stated that pt can return to [facility]; fi there are any pain meds they need to be sent with a physical script for them to process and administer. Spoke with daughter and still hopeful for acute rehab after PT evaluation. Further testing being done.
--- NOTE | 2021-12-30 12:32 | PM.IMHP ---
H&P: HPI History of Present Illness Date/Time: 12/30/21 12:32 Chief Complaint: Upper extremity pain Narrative: This is a 86-year-old female who came from the memory care unit which was formally known as [facility]. The patient has a history of dementia and has had multiple falls. The patient does typically walk with a walker but has been on steady since she has been complaining of having leg pain. The patient's daughters at the bedside answering questions. The patient is very lethargic at this time. The daughter does not want the patient to return to [facility] at this time but would rather place her in rehab to get her stronger. The daughter thought that possibly the patient had a UTI since she gets very weak with UTIs. However her urinalysis was negative today. The left knee shows some mild left knee osteoarthritis. Left hip shows mild osteoarthritis of the hips. Wrist x-ray shows transfers fractures of distal radial and ulnar metaphyses. Head CT was read as moderate nonspecific cerebral white matter disease which likely represents chronic small vessel ischemic disease. Orthopedic physician Dr. Walker was notified and it was felt that reduction was susceptible with splinting and that the patient may follow-up in a couple days and a decision will be made whether to cast or have a closed reduction. There was some concern about a laceration over the ulnar aspect of the arm and patient received Ancef 2 g. The patient is being admitted to observation status on the date of service of 12/30/2021 Review of Systems Review of Systems: See HPI All systems reviewed & are unremarkable except as noted in HPI and below Constitutional: Constitutional: Reports as per HPI and Reports no additional constitutional complaints Eyes: Eyes: Reports as per HPI and Reports no additional eye complaints ENT: Reports system reviewed and no additional complaints, except as documented and Reports Normal hearing present Cardiovascular: Cardiovascular: Reports no additional cardiovascular complaints Respiratory: Respiratory: Reports no additional respiratory complaints and Reports no additional respiratory complaints Gastrointestinal: Gastrointestinal: Reports as per HPI and Reports no additional gastrointestinal complaints Musculoskeletal: Musculoskeletal: Reports no additional musculoskeletal complaints Integumentary/Breasts: Skin/Breast: Reports system reviewed and no additional complaints, except as docu and Reports as per HPI Neurologic: Reports system reviewed and no additional complaints, except as documented, Reports as per HPI and Reports Normal hearing present Psychiatric: Psychiatric: Reports no additional psychiatric complaints and Reports as per HPI Endocrine: Endocrine: Reports no additional endocrine complaints Hematologic/Lymphatic: Hematologic/Lymphatic: Reports no additional hematologic/lymphatic complaints Allergic/Immunologic: Allergic/Immunologic: Reports no additional allergic/immunologic complaints [facility] Past Medical History Medical History (Updated 12/30/21 @ 14:40 by Soraya Pascual NP) Alzheimer's dementia COPD (chronic obstructive pulmonary disease) E coli infection Fractured tarsal bone GERD (gastroesophageal reflux disease) Hypercholesterolemia Hypertension Left wrist fracture Neck fracture Pelvis fracture Polio Urinary bladder cancer 2017 Surgical History Surgical History (Updated 12/30/21 @ 12:48 by Soraya Pascual NP) H/O cardiac catheterization H/O cystoscopy S/P peripheral artery angioplasty with stent placement S/P rotator cuff repair Family History Family History Father Heart disease Mother Heart disease Social History Social History (Updated 12/30/21 @ 14:41 by Soraya Pascual NP) Social History: The patient resides at [facility]. She is and has 2 children. 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
--- NOTE | 2021-12-30 14:17 | ADMGEN ---
This patient, Bekah Kitchen, was admitted to 3 [facility] Surg Room 304-01. Report received from VASHTI Zhang. Patient/family oriented to hospital policies and general routines including ID bracelet, bed and alarms, visiting hours, pain management, procedures, bathroom and other care routines, personal items, smoking policy, room service/diet, and visiting hours. Information on how to activate the Rapid Response Team has been discussed. Patient/Family are encouraged to report perceived risks to care and to ask questions if they do not understand what they are told or what they should do.
[2021-12-30] MEDS: DICLOFENAC SODIUM 1% 100 GM GEL (*BKC) 1 APPLIC TOPICAL ×2 (17:06→21:16)
[2021-12-30] MEDS: MEMANTINE 5 MG TABLET PO (17:07)
[2021-12-30] MEDS: DIVALPROEX SODIUM SPRINKLE 125 MG CAP.DR 250 MG PO (17:07)
[2021-12-30] MEDS: CELECOXIB 100 MG CAPSULE PO (17:07)
[2021-12-30] MEDS: QUEtiapine FUMARATE 25 MG TABLET PO (17:25)
[2021-12-30] MEDS: PRAVASTATIN SODIUM 20 MG TABLET PO (21:16)
[2021-12-30] MEDS: PANTOPRAZOLE 40 MG TABLET PO (21:16)
[2021-12-31 06:00] VITALS: BP 189/82; PULSE 65; RESP 20; TEMP 36.6; O2SAT 94
[2021-12-31 06:00] LABS: Basophils Percent Auto 0.6 % (0.2-1.2); Eosinophils Absolute Auto 0.1 K/mm3 (0-0.3); Eosinophils Percent Auto 3.5 % (0-4.4); Hemoglobin 12.2 g/dL (12.0-15.0); Immature Granulocyte Absolute 0.01 K/mm3 (0.00-0.031); Immature Granulocyte Percent A 0.3 % (0-0.5); Lymphocytes Absolute Auto 0.93 K/mm3 (0.9-3.2); Lymphocytes Percent Auto 27.4 % (18.3-44.2); Mean Corpuscular HGB Conc 30.5 g/dl (32-36); Mean Corpuscular Hemoglobin 27.4 pg (26-34); Mean Corpuscular Volume 89.7 fl (80-100); Mean Platelet Volume 11.3 fl (7.4-10.4); Monocytes Absolute Auto 0.3 K/mm3 (0.1-0.6); Monocytes Percent Auto 9.7 % (2.6-8.5); Neutrophils Percent Auto 58.5 % (45.5-73.1); Platelet Count Result 113 k/mm3 (150-375); Red Blood Count 4.46 M/mm3 (4.2-5.4); White Blood Count 3.4 K/mm3 (4.5-10.0)
--- NOTE | 2021-12-31 06:00 | PC.NURSE ---
Pt slept through the night. Daughter is very helpful with pt. Pt takes medication crushed in pudding. Pt resting comfortably. Pt wearing depends from home. Will continue to monitor pt.
[2021-12-31 06:05] LABS: Lactic Acid Reflex 0.7 mmol/L (0.7-2.0)
[2021-12-31 06:08] LABS: Alanine Aminotransferase 8 U/L (6-35); Albumin Level 3.7 g/dL (3.5-5.1); Alkaline Phosphatase 103 U/L (38-126); Anion Gap 9 mmol/L (8-16); Aspartate Amino Transferase 25 U/L (14-36); Bilirubin,Total 0.5 mg/dL (0.2-1.3); Blood Urea Nitrogen 27 mg/dL (7-17); Calcium 8.7 mg/dL (8.4-10.2); Carbon Dioxide 26 mmol/L (22-30); Chloride 106 mmol/L (98-107); Estimated Glomerular Filt Rate 47; Glucose 92 mg/dL (65-110); Magnesium 2.2 mg/dL (1.6-2.3); Potassium 3.4 mmol/L (3.4-5.0); Sodium 141 mmol/L (137-145)
[2021-12-31] MEDS: hydrALAZINE HCL 20 MG/ML VIAL 10 MG IV PUSH (07:23)
[2021-12-31] MEDS: MUPIROCIN 2% OINT 22 GM TUBE 1 APPLIC TOPICAL ×2 (08:44→17:03)
[2021-12-31] MEDS: DICLOFENAC SODIUM 1% 100 GM GEL (*BKC) 1 APPLIC TOPICAL ×4 (08:45→20:08)
[2021-12-31] MEDS: EUCERIN CREAM 120 GM JAR 1 APPLIC TOPICAL ×2 (08:45→17:01)
[2021-12-31 08:47] VITALS: PULSE 76; O2SAT 96
[2021-12-31] MEDS: METOPROLOL SUCCINATE EXT REL 100 MG TABCR PO (08:47)
[2021-12-31] MEDS: FLUTICASONE/UMECLIDIN/VILANTER 100-62.5-25 MCG ELLIPTA 1 PUFF INHALATION (08:47)
[2021-12-31] MEDS: IRBESARTAN 150 MG TABLET 300 MG PO (08:47)
[2021-12-31] MEDS: MULTIVITAMINS THERAPEUTIC TAB (*BKC) 1 TABLET PO (08:48)
[2021-12-31] MEDS: ASPIRIN 81 MG ENTERIC TABLET PO (08:49)
[2021-12-31] MEDS: DIVALPROEX SODIUM SPRINKLE 125 MG CAP.DR 250 MG PO ×2 (08:50→17:00)
[2021-12-31] MEDS: MEMANTINE 5 MG TABLET PO ×2 (08:51→17:00)
[2021-12-31] MEDS: QUEtiapine FUMARATE 25 MG TABLET PO ×3 (08:51→17:04)
[2021-12-31] MEDS: amLODIPine BESYLATE 5 MG TABLET PO (08:52)
[2021-12-31] MEDS: CELECOXIB 100 MG CAPSULE PO (08:52)
[2021-12-31] MEDS: LORATADINE 10 MG TABLET PO (08:52)
[2021-12-31] MEDS: PANTOPRAZOLE 40 MG TABLET PO ×2 (08:52→20:09)
[2021-12-31 08:57] VITALS: BP 137/61; PULSE 80; O2SAT 94
--- NOTE | 2021-12-31 13:48 | P.PNIM_ITS ---
Progress Note: A&P Assessment and Plan (1) Left wrist fracture: Code(s): S62.102A - Fracture of unspecified carpal bone, left wrist, initial encounter for closed fracture Status: Acute Assessment and Plan: Patient had fall at nursing facility with wrist injury. Wrist x-ray revealed comminuted fractures of the distal radius and ulna. * Fracture reduced in the ED on 12/30 * Follow-up wrist x-ray revealed transverse fracture of distal radius and ulnar metaphyses * Reviewed imaging results with Dr. Walker via phone today He will see the patient in consultation and discussed with family surgical versus conservative management option * Continue with left wrist splint * Supportive care. Analgesics available as needed * Appreciate PT/OT evaluation. Implement fall precautions * Planning for rehab following discharge (2) Alzheimer's dementia: Code(s): G30.9 - Alzheimer's disease, unspecified; F02.80 - Dementia in other diseases classified elsewhere without behavioral disturbance Status: Acute Assessment and Plan: Patient A&O x0. Per daughter/POA, she is at her baseline * Continue memantine * She is on Depakote and Seroquel for behavioral disturbance * Patient is pleasantly confused at my evaluation * Caution with narcotics. (3) Elevated serum creatinine: Code(s): R79.89 - Other specified abnormal findings of blood chemistry Status: Acute Assessment and Plan: creatinine 1.1 today. Baseline appears to be 0.9-1.0 * Hold celebrex and irbesartan. * Encourage PO fluid intake * Monitor labs closely (4) Hypertension: Code(s): I10 - Essential (primary) hypertension Status: Acute Assessment and Plan: Blood pressure reviewed and has been reasonably well controlled today. Last BP 101/64 * Continue home amlodipine. Hold irbesartan. * Monitor blood pressure trends (5) Chronic anemia: Code(s): D64.9 - Anemia, unspecified Status: Acute Assessment and Plan: Hemoglobin and hematocrit are stable at this time * No active bleeding * Monitor H&H (6) COPD (chronic obstructive pulmonary disease): Code(s): J44.9 - Chronic obstructive pulmonary disease, unspecified Status: Acute Assessment and Plan: No acute issues. Not in acute exacerbation * Continue home Trelegy (7) Peripheral vascular disease: Code(s): I73.9 - Peripheral vascular disease, unspecified Status: Acute Assessment and Plan: Family reports history of peripheral vascular disease. Questionable report of right lower extremity stent, no further information available about this at this time * Arterial Doppler completed on presentation which showed mildly decreased right OSMANI and moderately decreased left OSMANI consistent with arterial occlusive disease * Patient is established with vascular surgery and should continue with outpatient follow-up * No acute changes at this time. No apparent pain. No wounds. Subjective Date/time seen: 12/31/21 13:48 Interval history: Date of service: 12/31/2021 Bekah Kitchen is an 86-year-old female with a history of dementia, COPD, GERD, HTN, peripheral artery disease with right lower extremity stent who is seen in follow up for left wrist fracture. Patient not able to provide any history due to dementia. Daughter is at bedside. Reports that patient has been relatively comfortable today. She states that patient will be evaluated by [facility] this afternoon. She is hopeful [place]
--- NOTE | 2021-12-31 13:48 | PM.IMPN ---
Progress Note: A&P Assessment and Plan (1) Left wrist fracture: Code(s): S62.102A - Fracture of unspecified carpal bone, left wrist, initial encounter for closed fracture Status: Acute Assessment and Plan: Patient had fall at nursing facility with wrist injury. Wrist x-ray revealed comminuted fractures of the distal radius and ulna. Fracture reduced in the ED on 12/30 Follow-up wrist x-ray revealed transverse fracture of distal radius and ulnar metaphyses Reviewed imaging results with Dr. Walker via phone today He will see the patient in consultation and discussed with family surgical versus conservative management option Continue with left wrist splint Supportive care. Analgesics available as needed Appreciate PT/OT evaluation. Implement fall precautions Planning for rehab following discharge (2) Alzheimer's dementia: Code(s): G30.9 - Alzheimer's disease, unspecified; F02.80 - Dementia in other diseases classified elsewhere without behavioral disturbance Status: Acute Assessment and Plan: Patient A&O x0. Per daughter/POA, she is at her baseline Continue memantine She is on Depakote and Seroquel for behavioral disturbance Patient is pleasantly confused at my evaluation Caution with narcotics. (3) Elevated serum creatinine: Code(s): R79.89 - Other specified abnormal findings of blood chemistry Status: Acute Assessment and Plan: creatinine 1.1 today. Baseline appears to be 0.9-1.0 Hold celebrex and irbesartan. Encourage PO fluid intake Monitor labs closely (4) Hypertension: Code(s): I10 - Essential (primary) hypertension Status: Acute Assessment and Plan: Blood pressure reviewed and has been reasonably well controlled today. Last BP 101/64 Continue home amlodipine. Hold irbesartan. Monitor blood pressure trends (5) Chronic anemia: Code(s): D64.9 - Anemia, unspecified Status: Acute Assessment and Plan: Hemoglobin and hematocrit are stable at this time No active bleeding Monitor H&H (6) COPD (chronic obstructive pulmonary disease): Code(s): J44.9 - Chronic obstructive pulmonary disease, unspecified Status: Acute Assessment and Plan: No acute issues. Not in acute exacerbation Continue home Trelegy (7) Peripheral vascular disease: Code(s): I73.9 - Peripheral vascular disease, unspecified Status: Acute Assessment and Plan: Family reports history of peripheral vascular disease. Questionable report of right lower extremity stent, no further information available about this at this time Arterial Doppler completed on presentation which showed mildly decreased right OSMANI and moderately decreased left OSMANI consistent with arterial occlusive disease Patient is established with vascular surgery and should continue with outpatient follow-up No acute changes at this time. No apparent pain. No wounds. Subjective Date/time seen: 12/31/21 13:48 Interval history: Date of service: 12/31/2021 Bekah Kitchen is an 86-year-old female with a history of dementia, COPD, GERD, HTN, peripheral artery disease with right lower extremity stent who is seen in follow up for left wrist fracture. Patient not able to provide any history due to dementia. Daughter is at bedside. Reports that patient has been relatively comfortable today. She states that patient will be evaluated by [facility] this afternoon. She is hopeful that patient will be accepted there. If not, she would like to consider SNF. She has provided a list of choices to caretaker. She has no additional questions at this time. Review of Systems Review of Systems: All systems reviewed & are unremarkable except as noted in HPI and below Exam Narrative: General: thin, well-nourished, well-appearing 86-year-old female, sitting up in bed cuddling her stuffed animals, comfortable, N
[2021-12-31 14:09] VITALS: BP 101/64; PULSE 59; RESP 16; TEMP 37; O2SAT 94
--- NOTE | 2021-12-31 16:55 | PM.CNOR ---
Assessment and Plan Assessment and plan (1) Left wrist fracture: Code(s): S62.102A - Fracture of unspecified carpal bone, left wrist, initial encounter for closed fracture Status: Acute (2) Alzheimer's dementia: Code(s): G30.9 - Alzheimer's disease, unspecified; F02.80 - Dementia in other diseases classified elsewhere without behavioral disturbance Status: Acute Plan Displaced and highly unstable distal radius and ulnar metaphyseal fractures. Low demand patient with severe dementia. Reduction only partially obtainable in the emergency room. I recommend closed reduction and percutaneous pinning, to avoid unacceptable displacement and malunion. This will provide for adequate reduction and stabilization. This will be performed in the operating room tomorrow with fluoroscopy. Long-arm cast will be applied. She may be discharged afterwards, when ready. Planning is in progress for a memory care rehab discharge when available. Proceed with closed reduction percutaneous pinning left distal radius and ulnar fractures. Risks, benefits, and alternatives discussed. History of Present Illness HPI Consult date: 12/31/21 Chief complaint: Left Wrist Fracture/ Left Leg Weakness/Admission Narrative: 86-year-old female fell suffering a displaced fracture of the left wrist. Partial closed reduction obtained in the emergency room. Severe dementia. Not oriented to person or place. History obtained by the daughter. Supportive family. Review of Systems Review of Systems: ROS unobtainable: Yes unobtainable due to medical condition PMFSH Past Medical History Medical History Alzheimer's dementia COPD (chronic obstructive pulmonary disease) E coli infection Fractured tarsal bone GERD (gastroesophageal reflux disease) Hypercholesterolemia Hypertension Left wrist fracture Neck fracture Pelvis fracture Peripheral vascular disease Polio Urinary bladder cancer 2017 Surgical History Surgical History H/O cardiac catheterization H/O cystoscopy S/P peripheral artery angioplasty with stent placement S/P rotator cuff repair Family History Family History Father Heart disease Mother Heart disease Social History Social History Social History: The [facility]. She is and has 2 children. 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 She is a former smoker. She has 2 children and the daughter is the durable power estate attorney for healthcare. Code status DNR Years smoked: 35 Smoking status: Former smoker Tobacco type: cigarettes Alcohol intake: never Substance use: never Spiritual care concerns: Yes (Baptism) Meds Home Medications and Allergies Home Medications Medication Instructions Recorded Confirmed Type fluticasone fur. 100 mcg-umeclid 1 inh inhalation DAILY 07/26/21 12/30/21 History 62.5 mcg-vilant 25 mcg inhalat.powder (Trelegy Ellipta) pantoprazole 40 mg tablet,delayed 40 mg PO BID 07/26/21 12/30/21 History release pravastatin 20 mg tablet 20 mg PO HS 07/26/21 12/30/21 History quetiapine 25 mg tablet 25 mg PO TID 07/26/21 12/30/21 History acetaminophen 650 mg tablet 650 mg PO TID 07/27/21 12/30/21 History amlodipine 5 mg tablet 5 mg PO DAILY 07/27/21 12/30/21 History celecoxib 100 mg capsule 100 mg PO BID 07/27/21 12/30/21 History emollient combination no.72 1 ea topical BID 07/27/21 12/30/21 History (Eucerin Intensive Repair lotion) irbesartan 300 mg tablet 300 mg PO DAILY 07/27/21 12/30/21 History loratadine 10 mg tablet 10 mg PO DAILY 07/27/21 12/30/21 History memantine 5 mg tablet 5 mg PO BID 07/27/21 12/30/21 History menthol 5 % topical patch
[2021-12-31] MEDS: ACETAMINOPHEN 325 MG TABLET 650 MG PO (18:18)
[2021-12-31] MEDS: HYDROcodone/acetaminophen (*CRX) 5-325 MG TABLET 1 TAB PO (20:04)
[2021-12-31] MEDS: PRAVASTATIN SODIUM 20 MG TABLET PO (20:09)
[2021-12-31 21:12] VITALS: BP 164/75; PULSE 64; RESP 15; TEMP 36.3; O2SAT 100
[2021-12-31 22:37] VITALS: O2SAT 99
[2022-01-01] VITALS (16 sets, daily range): BP systolic 109–157; BP diastolic 53–93; PULSE 60–76; RESP 10–18; TEMP 35.7–36.9; O2SAT 92–100
[2022-01-01 06:13] LABS: Hematocrit 37.1 % (37.0-47.0); Hemoglobin 11.5 g/dL (12.0-15.0); Mean Corpuscular Hemoglobin 27.4 pg (26-34); Mean Corpuscular Volume 88.3 fl (80-100); Mean Platelet Volume 11.8 fl (7.4-10.4); Platelet Count Result 119 k/mm3 (150-375); Red Cell Distribution Width 14.2 % (11.5-14.5); White Blood Count 3.5 K/mm3 (4.5-10.0)
[2022-01-01 06:27] LABS: Anion Gap 12 mmol/L (8-16); Blood Urea Nitrogen 23 mg/dL (7-17); Calcium 8.1 mg/dL (8.4-10.2); Carbon Dioxide 24 mmol/L (22-30); Chloride 105 mmol/L (98-107); Estimated Glomerular Filt Rate 53; Glucose 92 mg/dL (65-110); Potassium 3.6 mmol/L (3.4-5.0); Sodium 141 mmol/L (137-145)
[2022-01-01] MEDS: METOPROLOL SUCCINATE EXT REL 100 MG TABCR PO (09:26)
[2022-01-01] MEDS: MUPIROCIN 2% OINT 22 GM TUBE 1 APPLIC TOPICAL ×2 (09:26→18:33)
[2022-01-01] MEDS: MULTIVITAMINS THERAPEUTIC TAB (*BKC) 1 TABLET PO (09:26)
[2022-01-01] MEDS: EUCERIN CREAM 120 GM JAR 1 APPLIC TOPICAL ×2 (09:26→18:34)
[2022-01-01] MEDS: amLODIPine BESYLATE 5 MG TABLET PO (09:26)
[2022-01-01] MEDS: DICLOFENAC SODIUM 1% 100 GM GEL (*BKC) 1 APPLIC TOPICAL ×4 (09:26→21:26)
[2022-01-01] MEDS: QUEtiapine FUMARATE 25 MG TABLET PO ×3 (09:27→18:38)
[2022-01-01] MEDS: MEMANTINE 5 MG TABLET PO ×2 (09:28→18:38)
[2022-01-01] MEDS: DIVALPROEX SODIUM SPRINKLE 125 MG CAP.DR 250 MG PO ×2 (09:28→18:38)
[2022-01-01] MEDS: PANTOPRAZOLE 40 MG TABLET PO ×2 (09:28→21:25)
[2022-01-01] MEDS: LORATADINE 10 MG TABLET PO (09:28)
[2022-01-01] MEDS: FLUTICASONE/UMECLIDIN/VILANTER 100-62.5-25 MCG ELLIPTA 1 PUFF INHALATION (10:57)
--- NOTE | 2022-01-01 11:04 | P.PNIM_ITS ---
Progress Note: A&P Assessment and Plan (1) Left wrist fracture: Code(s): S62.102A - Fracture of unspecified carpal bone, left wrist, initial encounter for closed fracture Status: Acute Assessment and Plan: Patient had fall at nursing facility with wrist injury. Wrist x-ray revealed comminuted fractures of the distal radius and ulna. * Fracture reduced in the ED on 12/30 * Follow-up wrist x-ray revealed transverse fracture of distal radius and ulnar metaphyses * Appreciate orthopedic surgery consultation * Planning for close reduction and percutaneous pinning this afternoon * Continue with left wrist splint * Supportive care. Analgesics available as needed * Appreciate PT/OT evaluation. Fall precautions in place * Planning for rehab following discharge (2) Alzheimer's dementia: Code(s): G30.9 - Alzheimer's disease, unspecified; F02.80 - Dementia in other diseases classified elsewhere without behavioral disturbance Status: Acute Assessment and Plan: Patient A&O x0. Per daughter/POA, she is at her baseline * Continue memantine * She is on Depakote and Seroquel for behavioral disturbance * Patient is pleasantly confused at my evaluation * Caution with narcotics. (3) Elevated serum creatinine: Code(s): R79.89 - Other specified abnormal findings of blood chemistry Status: Acute Assessment and Plan: Resolved. Creatinine 1.0 today * Celebrex and irbesartan on hold * Encourage PO fluid intake * Monitor labs closely (4) Hypertension: Code(s): I10 - Essential (primary) hypertension Status: Acute Assessment and Plan: Blood pressure reviewed and has been reasonably well controlled today. Last BP 149/93 * Continue home amlodipine. Irbesartan on hold, resume when clinically appropriate * Monitor blood pressure trends (5) Chronic anemia: Code(s): D64.9 - Anemia, unspecified Status: Acute Assessment and Plan: Hemoglobin and hematocrit are stable at this time * No active bleeding * Monitor H&H (6) COPD (chronic obstructive pulmonary disease): Code(s): J44.9 - Chronic obstructive pulmonary disease, unspecified Status: Acute Assessment and Plan: No acute issues. Not in acute exacerbation * Continue home Trelegy (7) Peripheral vascular disease: Code(s): I73.9 - Peripheral vascular disease, unspecified Status: Acute Assessment and Plan: Family reports history of peripheral vascular disease. Questionable report of right lower extremity stent, no further information available about this at this time * Arterial Doppler completed on presentation which showed mildly decreased right OSMANI and moderately decreased left OSMANI consistent with arterial occlusive disease * Patient is established with vascular surgery and should continue with outpatient follow-up * No acute changes at this time. No apparent pain. No wounds. Subjective Date/time seen: 01/01/22 11:04 Interval history: Date of service: 01/01/2022 Bekah Kitchen is an 86-year-old female with a history of dementia, COPD, GERD, HTN, peripheral artery disease with right lower extremity stent who is seen in follow up for left wrist fracture. Patient not able to provide any history due to dementia. Review of Systems Review of Systems: ROS unobtainable: Yes unobtainable due to mental status Exam Narrative: General: thin, well-nourished, well-appearing 86
--- NOTE | 2022-01-01 11:04 | PM.IMPN ---
Progress Note: A&P Assessment and Plan (1) Left wrist fracture: Code(s): S62.102A - Fracture of unspecified carpal bone, left wrist, initial encounter for closed fracture Status: Acute Assessment and Plan: Patient had fall at nursing facility with wrist injury. Wrist x-ray revealed comminuted fractures of the distal radius and ulna. Fracture reduced in the ED on 12/30 Follow-up wrist x-ray revealed transverse fracture of distal radius and ulnar metaphyses Appreciate orthopedic surgery consultation Planning for close reduction and percutaneous pinning this afternoon Continue with left wrist splint Supportive care. Analgesics available as needed Appreciate PT/OT evaluation. Fall precautions in place Planning for rehab following discharge (2) Alzheimer's dementia: Code(s): G30.9 - Alzheimer's disease, unspecified; F02.80 - Dementia in other diseases classified elsewhere without behavioral disturbance Status: Acute Assessment and Plan: Patient A&O x0. Per daughter/POA, she is at her baseline Continue memantine She is on Depakote and Seroquel for behavioral disturbance Patient is pleasantly confused at my evaluation Caution with narcotics. (3) Elevated serum creatinine: Code(s): R79.89 - Other specified abnormal findings of blood chemistry Status: Acute Assessment and Plan: Resolved. Creatinine 1.0 today Celebrex and irbesartan on hold Encourage PO fluid intake Monitor labs closely (4) Hypertension: Code(s): I10 - Essential (primary) hypertension Status: Acute Assessment and Plan: Blood pressure reviewed and has been reasonably well controlled today. Last BP 149/93 Continue home amlodipine. Irbesartan on hold, resume when clinically appropriate Monitor blood pressure trends (5) Chronic anemia: Code(s): D64.9 - Anemia, unspecified Status: Acute Assessment and Plan: Hemoglobin and hematocrit are stable at this time No active bleeding Monitor H&H (6) COPD (chronic obstructive pulmonary disease): Code(s): J44.9 - Chronic obstructive pulmonary disease, unspecified Status: Acute Assessment and Plan: No acute issues. Not in acute exacerbation Continue home Trelegy (7) Peripheral vascular disease: Code(s): I73.9 - Peripheral vascular disease, unspecified Status: Acute Assessment and Plan: Family reports history of peripheral vascular disease. Questionable report of right lower extremity stent, no further information available about this at this time Arterial Doppler completed on presentation which showed mildly decreased right OSMANI and moderately decreased left OSMANI consistent with arterial occlusive disease Patient is established with vascular surgery and should continue with outpatient follow-up No acute changes at this time. No apparent pain. No wounds. Subjective Date/time seen: 01/01/22 11:04 Interval history: Date of service: 01/01/2022 Bekah Kitchen is an 86-year-old female with a history of dementia, COPD, GERD, HTN, peripheral artery disease with right lower extremity stent who is seen in follow up for left wrist fracture. Patient not able to provide any history due to dementia. Review of Systems Review of Systems: ROS unobtainable: Yes unobtainable due to mental status Exam Narrative: General: thin, well-nourished, well-appearing 86-year-old female, semi recumbent in bed, comfortable, NARD Neuro: awake, alert, does not respond to questions, no focal neuro deficits noted HEENMT: normocephalic, atraumatic, EOMI, sclerae anicteric Respiratory: clear to auscultation bilaterally, nonlabored breathing Cardio: regular rate, regular rhythm with S1-S2 Abdomen: nondistended, normoactive bowel sounds, soft, nontender to palpation Extremities: right upper extremity wrapped in splint. fingers with brisk capillary refill. BLE with n
[2022-01-01] MEDS: HYDROcodone/acetaminophen (*CRX) 5-325 MG TABLET 1 TAB PO ×2 (12:13→23:42)
--- NOTE | 2022-01-01 12:29 | PCPTNOTE ---
The patient treatment was not able to be completed on 01/01/2022 due to patient scheduled for surgery this afternoon. Will plan to continue treatment per plan of care.
--- NOTE | 2022-01-01 14:33 | ECG_ITS ---
Measurements Intervals [place] Rate: 61 P: 82 [place]: 189 QRS: -44 QRSD: 73 T: 76 QT: 395 QTc: 400 Interpretive Statements SINUS RHYTHM MARKED LEFT AXIS DEVIATION ANTEROSEPTAL INFARCT, AGE INDETERMINATE BASELINE ARTIFACT- I, II, III, AVR, AVL, AVF ABNORMAL ECG NO PREVIOUS ECG AVAILABLE FOR COMPARISON Electronically Signed On 01-02-2022 7:08:10 CDT by Julio Cesar Batista D.O.
--- NOTE | 2022-01-01 14:36 | WPDHPUPDATE1 ---
History and Physical Update Update Date/Time: 01/01/22 14:36 History and Physical has been reviewed, including an updated exam of the patient. There are NO changes in the patient's condition. Risks, benefits, and alternatives have been discussed and questions answered. Patient agrees to proceed with procedure.
--- NOTE | 2022-01-01 14:42 | WPDANESEPPF ---
Anes - Initial Pre Proc Eval Procedure: Operation Date: 01/01/22 15:00 Proposed Procedures p Closed Reduction Percutaneous Pinning Left Distal Radius And Ulna - Tae Walker MD Date/Time: 01/01/22 14:42 Surgeon: Renetta Weathers PA-C Pre Op Diagnosis: Left Wrist Fracture/ Left Leg Weakness/Admission Patient Data Age: 86 Gender: F Height: 1.45 m Weight: 42.4 kg Last Vital Signs Temp 36.9 C 01/01/22 14:00 Pulse 64 01/01/22 14:00 Resp 16 01/01/22 14:00 BP 129/67 01/01/22 14:00 Pulse Ox 92 01/01/22 14:00 O2 Del Method Room Air 01/01/22 14:00 O2 Flow Rate 2 12/30/21 21:10 Allergies Allergy/AdvReac Type Severity Reaction Status Date / Time HI Inhibitors Allergy Unknown Verified 12/30/21 13:51 atorvastatin Allergy Unknown Verified 12/30/21 13:51 famotidine Allergy Unknown Verified 12/30/21 13:51 ibuprofen Allergy Unknown Verified 12/30/21 13:51 methylprednisolone Allergy Unknown Verified 12/30/21 13:51 rosuvastatin Allergy Unknown Verified 12/30/21 13:51 Home Medications Medication Instructions Recorded Confirmed Type fluticasone fur. 100 mcg-umeclid 1 inh inhalation DAILY 07/26/21 12/30/21 History 62.5 mcg-vilant 25 mcg inhalat.powder (Trelegy Ellipta) pantoprazole 40 mg tablet,delayed 40 mg PO BID 07/26/21 12/30/21 History release pravastatin 20 mg tablet 20 mg PO HS 07/26/21 12/30/21 History quetiapine 25 mg tablet 25 mg PO TID 07/26/21 12/30/21 History acetaminophen 650 mg tablet 650 mg PO TID 07/27/21 12/30/21 History amlodipine 5 mg tablet 5 mg PO DAILY 07/27/21 12/30/21 History celecoxib 100 mg capsule 100 mg PO BID 07/27/21 12/30/21 History emollient combination no.72 1 ea topical BID 07/27/21 12/30/21 History (Eucerin Intensive Repair lotion) irbesartan 300 mg tablet 300 mg PO DAILY 07/27/21 12/30/21 History loratadine 10 mg tablet 10 mg PO DAILY 07/27/21 12/30/21 History memantine 5 mg tablet 5 mg PO BID 07/27/21 12/30/21 History menthol 5 % topical patch (Icy Hot 1 patch topical DAILY 07/27/21 12/30/21 History (menthol)) metoprolol succinate 100 mg 100 mg PO DAILY 07/27/21 12/30/21 History tablet,extended release 24 hr multivitamin 1 tablet PO DAILY 07/27/21 12/30/21 History mupirocin 2 % topical ointment 1 applic topical BID 07/27/21 12/30/21 History aspirin 81 mg tablet,delayed 81 mg PO DAILY 12/30/21 12/30/21 History release diclofenac sodium 1 % topical gel 1 ea topical QID 12/30/21 12/30/21 History divalproex 125 mg capsule,delayed 250 mg PO BID 12/30/21 12/30/21 History release sprinkle eszopiclone 2 mg tablet 2 mg PO HS 12/30/21 12/30/21 History Laboratory Tests 01/01/22 01/01/22 05:41 05:41 WBC 3.5 K/mm3 L K/mm3 (4.5-10.0) RBC 4.20 M/mm3 M/mm3 (4.2-5.4) Hgb 11.5 g/dL L g/dL (12.0-15.0) Hct 37.1 % % (37.0-47.0) MCV 88.3 fl fl (80-100) MCH 27.4 pg pg (26-34) MCHC 31.0 g/dl L g/dl (32-36) RDW 14.2 % % (11.5-14.5) Plt Count 119 k/mm3 L k/mm3 (150-375) MPV 11.8 fl H fl (7.4-10.4) Sodium 141 mmol/L mmol/L (137-145) Potassium 3.6 mmol/L mmol/L (3.4-5.0) Chloride 105 mmol/L mmol/L (98-107) Carbon Dioxide 24 mmol/L mmol/L (22-30) Anion Gap 12 mmol/L mmol/L (8-16) BUN 23 mg/dL H mg/dL (7-17) Creatinine 1.00 mg/dL mg/dL (0.7-1.0) Estim Creat Clear Calc Not Reportable Estimated GFR 53 L (59 - ) Glucose 92 mg/dL mg/dL (65-110) Calcium 8.1 mg/dL L mg/dL (8.4-10.2) Patient hx anesthesia problems: none Family hx anesthesia problems: none Results Review: All pre-operative results and documents have been reviewed as part of the pre-operative evaluation. [facility] Past Medical History Medical History Alzheimer's dementia COPD (chronic obstructive pulmonary disease) E coli infection
[2022-01-01] MEDS: LACTATED RINGERS 1,000 ML 30 ML IV CONT (15:00)
[2022-01-01] MEDS: ceFAZolin 2 GM/D5W 50 ML 2 GM/50 ML BAG IVPB ×2 (15:06→21:26)
[2022-01-01] MEDS: BUPIVACAINE/EPINEPHRINE 0.25% 50 ML VIAL INFILTRATE (15:41)
--- NOTE | 2022-01-01 17:44 | W.PM.PROC2 ---
Procedure Note - Detailed Date of Procedure 01/01/22 Pre-op Diagnosis Displaced left wrist distal radius and ulna extra-articular fractures. Post-op Diagnosis Same Procedure Performed Closed reduction, percutaneous pinning left wrist distal radius and ulnar fractures with long-arm cast application. Surgeon Tae Walker MD Russian History Professor Nabila Saez PA-C Anesthesia General Indications Unstable comminuted fracture. Low demand patient with severe Alzheimer's dementia. Insufficient reduction obtained in the emergency department upon initial presentation. Findings Abrasion at the ulnar fracture site did not appear to be a complete opening. The fracture reductions were performed, and multiple K-wires placed to provide good stability. Minimal swelling. Long-arm cast applied with appropriate padding at the pin sites. Description of Procedure Preoperative antibiotics given. The arm prepped and draped in the usual sterile fashion. Well-padded tourniquet applied but not used. Biplanar fluoroscopy used throughout the procedure to confirm anatomic reduction and appropriate placement of the pins. Manipulative reduction was performed. First 2 pins were placed through a small incision at the radial styloid. Blunt dissection down to the interval between the 1st and 2nd compartments. Good initial provisional stability obtained. A 3rd pin placed through Sander's tubercle also applied good control. Pin was initially placed at the ulnar styloid which was also carefully exposed bluntly. This pin ran down the cortex and provided good overall stability. Another pin from the ulnar styloid fragment into the radius was performed with the arm in supination. A final pin was placed at the ulnar aspect of the dorsal radius. Careful relaxing incision risks were placed around the pins and the protective balls were secured. The wounds were approximated with interrupted nylon suture. Xeroform gauze was placed around the pin sites, and padding was applied to the arm. A long-arm cast was created. Plaster used for the 1st layer for better conformity, followed by fiberglass layers. Implants 1.6 mm K-wires. Estimated Blood Loss -15.0 Complications No immediate complications Condition Stable Disposition PACU [facility] Billing Surgery - Charge Forward: Surgery Billing
[2022-01-01] MEDS: PRAVASTATIN SODIUM 20 MG TABLET PO (21:25)
[2022-01-01] MEDS: SENNA/DOCUSATE SODIUM TABLET 2 TAB PO (21:26)
[2022-01-02] VITALS (7 sets, daily range): BP systolic 105–210; BP diastolic 45–92; PULSE 54–84; RESP 16–19; TEMP 35.9–36.3; O2SAT 91–99
--- NOTE | 2022-01-02 06:40 | PC.NURSE ---
Pt has been experiencing some pain in her hand. Daughter at bedside. Pt was given some pain medication. Pt woke up this morning and has a manual BP of 210/92. Dr. Singer was notified. Dr Singer instructed to give morning medication early. Will continue to monitor pt.
[2022-01-02] MEDS: HYDROcodone/acetaminophen (*CRX) 5-325 MG TABLET 1 TAB PO (06:48)
[2022-01-02] MEDS: LORATADINE 10 MG TABLET PO (06:48)
[2022-01-02] MEDS: MEMANTINE 5 MG TABLET PO ×2 (06:48→16:41)
[2022-01-02] MEDS: SENNA/DOCUSATE SODIUM TABLET 2 TAB PO ×2 (06:49→16:42)
[2022-01-02] MEDS: amLODIPine BESYLATE 5 MG TABLET PO (06:49)
[2022-01-02] MEDS: DIVALPROEX SODIUM SPRINKLE 125 MG CAP.DR 250 MG PO ×2 (06:49→16:42)
[2022-01-02] MEDS: MULTIVITAMINS THERAPEUTIC TAB (*BKC) 1 TABLET PO (06:49)
[2022-01-02] MEDS: QUEtiapine FUMARATE 25 MG TABLET PO ×3 (06:49→16:42)
[2022-01-02] MEDS: METOPROLOL SUCCINATE EXT REL 100 MG TABCR PO (06:50)
[2022-01-02] MEDS: ASPIRIN 81 MG ENTERIC TABLET PO (06:52)
[2022-01-02] MEDS: PANTOPRAZOLE 40 MG TABLET PO ×2 (06:52→20:25)
[2022-01-02] MEDS: ceFAZolin 2 GM/D5W 50 ML 2 GM/50 ML BAG IVPB ×2 (06:53→13:39)
[2022-01-02 07:34] LABS: Basophils Percent Auto 0.5 % (0.2-1.2); Eosinophils Absolute Auto 0.1 K/mm3 (0-0.3); Eosinophils Percent Auto 2.3 % (0-4.4); Hematocrit 40.2 % (37.0-47.0); Hemoglobin 12.6 g/dL (12.0-15.0); Immature Granulocyte Absolute 0.01 K/mm3 (0.00-0.031); Immature Granulocyte Percent A 0.3 % (0-0.5); Immature Platelet Fraction Pct 4.3 % (0.9-11.2); Lymphocytes Absolute Auto 0.59 K/mm3 (0.9-3.2); Lymphocytes Percent Auto 15.1 % (18.3-44.2); Mean Corpuscular HGB Conc 31.3 g/dl (32-36); Mean Corpuscular Hemoglobin 27.5 pg (26-34); Mean Corpuscular Volume 87.8 fl (80-100); Monocytes Absolute Auto 0.4 K/mm3 (0.1-0.6); Monocytes Percent Auto 8.9 % (2.6-8.5); Neutrophils Absolute Auto 2.9 K/mm3 (1.3-6.7); Neutrophils Percent Auto 72.9 % (45.5-73.1); Platelet Count Result 131 k/mm3 (150-375); Red Blood Count 4.58 M/mm3 (4.2-5.4); Red Cell Distribution Width 13.8 % (11.5-14.5); White Blood Count 3.9 K/mm3 (4.5-10.0)
[2022-01-02 07:43] LABS: Anion Gap 13 mmol/L (8-16); Blood Urea Nitrogen 18 mg/dL (7-17); Calcium 8.8 mg/dL (8.4-10.2); Carbon Dioxide 25 mmol/L (22-30); Chloride 101 mmol/L (98-107); Estimated Glomerular Filt Rate 60; Glucose 149 mg/dL (65-110); Potassium 3.4 mmol/L (3.4-5.0); Sodium 139 mmol/L (137-145)
[2022-01-02] MEDS: EUCERIN CREAM 120 GM JAR 1 APPLIC TOPICAL ×2 (08:52→16:42)
[2022-01-02] MEDS: MUPIROCIN 2% OINT 22 GM TUBE 1 APPLIC TOPICAL ×2 (08:52→16:42)
[2022-01-02] MEDS: DICLOFENAC SODIUM 1% 100 GM GEL (*BKC) 1 APPLIC TOPICAL ×4 (08:53→20:24)
--- NOTE | 2022-01-02 11:24 | P.PNIM_ITS ---
Progress Note: A&P Assessment and Plan (1) Left wrist fracture: Qualifiers: Encounter type: initial encounter Fracture type: closed Qualified Code(s): S62.102A - Fracture of unspecified carpal bone, left wrist, initial encounter for closed fracture Code(s): S62.102A - Fracture of unspecified carpal bone, left wrist, initial encounter for closed fracture Status: Acute Assessment and Plan: Patient had fall at nursing facility with wrist injury. Wrist x-ray revealed co mminuted fractures of the distal radius and ulna. * Fracture reduced in the ED on 12/30 * Follow-up wrist x-ray revealed transverse fracture of distal radius and ulnar metaphyses * Appreciate orthopedic surgery consultation * s/p close reduction and percutaneous pinning on 01/01/22 * Continue supportive care- change pain regimen to scheduled extra-strength tylenol 1000 mg Q8 hours and PRN tramadol. Patient has allergy to ibuprofen so will avoid this. Continue ice and elevation. * Appreciate PT/OT evaluation. Fall precautions in place * Discharge to rehab pending. (2) Alzheimer's dementia: Qualifiers: Alzheimer's disease onset: unspecified onset Dementia behavioral disturbance: with behavioral disturbance Qualified Code(s): G30.9 - Alzheimer's disease, unspecified; F02.81 - Dementia in other diseases classified elsewhere with behavioral disturbance Code(s): G30.9 - Alzheimer's disease, unspecified; F02.80 - Dementia in other diseases classified elsewhere without behavioral disturbance Status: Chronic Assessment and Plan: Patient A&O x0. Per daughter/POA, she is at her baseline * Continue memantine * Continue Depakote and Seroquel for h/o behavioral disturbance- pt is pleasant * Caution with narcotics. (3) Elevated serum creatinine: Code(s): R79.89 - Other specified abnormal findings of blood chemistry Status: Acute Assessment and Plan: Resolved. BUN 18, creatinine 0.9 on 01/02/22 * Resume Celebrex * Will resume irbesartan with hold parameters. * Encourage PO fluid intake * Monitor labs closely (4) Hypertension: Qualifiers: Hypertension type: primary hypertension Qualified Code(s): I10 - Essential (primary) hypertension Code(s): I10 - Essential (primary) hypertension Status: Chronic Assessment and Plan: Chronic, blood pressure reviewed and stable. * continue antihypertensives as BP tolerates. (5) Chronic anemia: Code(s): D64.9 - Anemia, unspecified Status: Chronic Assessment and Plan: Hemoglobin and hematocrit are stable at this time * No active bleeding * Monitor H&H (6) COPD (chronic obstructive pulmonary disease): Code(s): J44.9 - Chronic obstructive pulmonary disease, unspecified Status: Acute Assessment and Plan: No acute issues. Not in acute exacerbation * Continue home Trelegy (7) Peripheral vascular disease: Code(s): I73.9 - Peripheral vascular disease, unspecified Status: Acute Assessment and Plan: Family reports history of peripheral vascular disease. Questionable report of r ight lower extremity stent, no further information available about this at this time * Arterial Doppler completed on presentation which showed mildly decreased right OSMANI and moderately decreased left OSMANI consistent with arterial occlusive disease * Patient is established with vascular surgery and should continue with outpatient follow-up * No acute changes at this time. No apparent pain. No woun
--- NOTE | 2022-01-02 11:24 | PM.IMPN ---
Progress Note: A&P Assessment and Plan (1) Left wrist fracture: Qualifiers: Encounter type: initial encounter Fracture type: closed Qualified Code(s): S62.102A - Fracture of unspecified carpal bone, left wrist, initial encounter for closed fracture Code(s): S62.102A - Fracture of unspecified carpal bone, left wrist, initial encounter for closed fracture Status: Acute Assessment and Plan: Patient had fall at nursing facility with wrist injury. Wrist x-ray revealed comminuted fractures of the distal radius and ulna. Fracture reduced in the ED on 12/30 Follow-up wrist x-ray revealed transverse fracture of distal radius and ulnar metaphyses Appreciate orthopedic surgery consultation s/p close reduction and percutaneous pinning on 01/01/22 Continue supportive care- change pain regimen to scheduled extra-strength tylenol 1000 mg Q8 hours and PRN tramadol. Patient has allergy to ibuprofen so will avoid this. Continue ice and elevation. Appreciate PT/OT evaluation. Fall precautions in place Discharge to rehab pending. (2) Alzheimer's dementia: Qualifiers: Alzheimer's disease onset: unspecified onset Dementia behavioral disturbance: with behavioral disturbance Qualified Code(s): G30.9 - Alzheimer's disease, unspecified; F02.81 - Dementia in other diseases classified elsewhere with behavioral disturbance Code(s): G30.9 - Alzheimer's disease, unspecified; F02.80 - Dementia in other diseases classified elsewhere without behavioral disturbance Status: Chronic Assessment and Plan: Patient A&O x0. Per daughter/POA, she is at her baseline Continue memantine Continue Depakote and Seroquel for h/o behavioral disturbance- pt is pleasant Caution with narcotics. (3) Elevated serum creatinine: Code(s): R79.89 - Other specified abnormal findings of blood chemistry Status: Acute Assessment and Plan: Resolved. BUN 18, creatinine 0.9 on 01/02/22 Resume Celebrex Will resume irbesartan with hold parameters. Encourage PO fluid intake Monitor labs closely (4) Hypertension: Qualifiers: Hypertension type: primary hypertension Qualified Code(s): I10 - Essential (primary) hypertension Code(s): I10 - Essential (primary) hypertension Status: Chronic Assessment and Plan: Chronic, blood pressure reviewed and stable. continue antihypertensives as BP tolerates. (5) Chronic anemia: Code(s): D64.9 - Anemia, unspecified Status: Chronic Assessment and Plan: Hemoglobin and hematocrit are stable at this time No active bleeding Monitor H&H (6) COPD (chronic obstructive pulmonary disease): Code(s): J44.9 - Chronic obstructive pulmonary disease, unspecified Status: Acute Assessment and Plan: No acute issues. Not in acute exacerbation Continue home Trelegy (7) Peripheral vascular disease: Code(s): I73.9 - Peripheral vascular disease, unspecified Status: Acute Assessment and Plan: Family reports history of peripheral vascular disease. Questionable report of right lower extremity stent, no further information available about this at this time Arterial Doppler completed on presentation which showed mildly decreased right OSMANI and moderately decreased left OSMANI consistent with arterial occlusive disease Patient is established with vascular surgery and should continue with outpatient follow-up No acute changes at this time. No apparent pain. No wounds. Plan CODE STATUS: DNR Disposition: Pending SNF Time Spent With Patient Time with patient: 15 - 25 minutes Subjective Date/time seen: 01/02/22 11:24 Interval history: Patient is an 86-year-old female with medical comorbidities of dementia, COPD, GERD, HTN, peripheral artery disease with right lower extremity stent who is seen in follow up for left wrist fracture. Patient was sitting up
[2022-01-02] MEDS: FLUTICASONE/UMECLIDIN/VILANTER 100-62.5-25 MCG ELLIPTA 1 PUFF INHALATION (11:27)
--- NOTE | 2022-01-02 12:36 | PM.PNORT ---
Progress Note: A&P Assessment and Plan (1) Left wrist fracture: Code(s): S62.102A - Fracture of unspecified carpal bone, left wrist, initial encounter for closed fracture Status: Acute (2) Alzheimer's dementia: Code(s): G30.9 - Alzheimer's disease, unspecified; F02.80 - Dementia in other diseases classified elsewhere without behavioral disturbance Status: Acute Plan POD #1 Closed reduction, percutaneous pinning left wrist distal radius and ulnar fractures with long-arm cast application. Patient tolerated surgery well. She has been working with PT/OT. She will likely need to be discharged to SNF/Rehab. Spoke to patient's daughter at the bedside. States patient was very sleepy after getting narcotic pain medications. She is going to have scheduled Tylenol for pain instead. This is reasonable. Discussed discharge instructions and expectations with patient's daughter. Answered all questions. Ortho instructions: D/C to SNF/rehab Follow up in office in 3 weeks. Will xray, remove cast, and clean pins. Will plan on applying short arm cast at that time for another 2-3 weeks and then pulling the pins. Please call [facility] [phone] for an appointment. I recommend ice and elevation to help with pain and swelling. If swelling increases and concern that cast is too tight, please call our office. Wound Care: Keep cast dry and clean. Will order Keflex TID for 3 weeks to decrease risk of infection. PT: Sling for comfort. No weight bearing with casted arm. Shoulder and finger ROM okay. Pain medication: Tylenol. Subjective Subjective Date/Time Seen: 01/02/22 12:36 Interval history: Patient resting comfortably in a chair. Patient's daughter at bedside helping her eat. Patient states she has some pain. No other complaints. Review of Systems Review of Systems: ROS unobtainable: Yes unobtainable due to medical condition Exam Narrative: Thin, elderly 86 y/o female. Patient has demential. Cast intact. Wiggles fingers. Moderate swelling and ecchymosis. Light touch sensation intact. Good capillary refill. Objective Data Vital Signs Vital Signs: Vital Signs - 24 hr 01/01/22 14:00 01/01/22 14:00 01/01/22 17:13 Temperature 96.3 F L 98.5 F 98.0 F Pulse Rate 63 64 76 Respiratory Rate 16 16 10 L Blood Pressure 125/73 129/67 157/70 H Pulse Oximetry 96 92 100 Oxygen Delivery Room Air Simple Face Mask Oxygen Flow Rate 8 01/01/22 17:25 01/01/22 17:30 01/01/22 17:40 Temperature Pulse Rate 72 63 61 Respiratory Rate 14 14 14 Blood Pressure 144/65 H 125/59 L 124/58 L Pulse Oximetry 100 100 100 Oxygen Delivery Simple Face Mask Simple Face Mask Simple Face Mask Oxygen Flow Rate 8 8 8 01/01/22 17:45 01/01/22 17:55 01/01/22 18:05 Temperature Pulse Rate 60 72 70 Respiratory Rate 14 17 15 Blood Pressure 110/55 L 109/53 L 155/85 H Pulse Oximetry 95 94 96 Oxygen Delivery Room Air Nasal Cannula Nasal Cannula Oxygen Flow Rate 2 1 01/01/22 18:13 01/01/22 18:16 01/01/22 18:53 Temperature 97.4 F L 96.2 F L 96.9 F L Pulse Rate 68 61 68 Respiratory Rate 15 15 16 Blood Pressure 154/81 H 121/67 129/69 Pulse Oximetry 94 97 93 Oxygen Delivery Nasal Cannula Oxygen Flow Rate 1 01/01/22 20:44 01/01/22 20:01 01/02/22 00:01 Temperature 97.4 F L 97.3 F L Pulse Rate 63 76 Respiratory Rate 18 16 Blood Pressure 126/56 L 157/74 H Pulse Oximetry 95 93 99 Oxygen Delivery Nasal Cannula Oxygen Flow Rate 2 01/02/22 06:50 01/02/22 04:01 01/02/22 08:01 Temperature 97.4 F L 97 F L Pulse Rate 84 72 62 Respiratory Rate 19 17 Blood Pressure 210/92 H 105/47 L Pulse Oximetry 96 91 Oxygen Delivery Oxygen Flow Rate 01/02/22 09:10 01/02/22 10:31 01/02/22 11:28 Temperature Pulse Rate Respiratory Rate Blood Pressure Pulse Oximetry 94 Oxygen Delivery Room Air Room Air Room Air Oxygen Flow Rate Intake/Output Intake/Output: Intake & Output
[2022-01-02] MEDS: traMADol HCL (*CRX) 50 MG TABLET PO (12:40)
[2022-01-02] MEDS: ACETAMINOPHEN 500 MG TABLET 1000 MG PO ×2 (13:39→20:40)
[2022-01-02] MEDS: PRAVASTATIN SODIUM 20 MG TABLET PO (20:25)
[2022-01-03] VITALS: BP 141/54; PULSE 60; RESP 18; TEMP 36.1; O2SAT 96
[2022-01-03 06:00] VITALS: BP 194/79; PULSE 65; RESP 18; TEMP 36.4; O2SAT 97
[2022-01-03] MEDS: ACETAMINOPHEN 500 MG TABLET 1000 MG PO ×2 (06:05→13:47)
[2022-01-03 08:31] VITALS: PULSE 68
[2022-01-03] MEDS: SENNA/DOCUSATE SODIUM TABLET 2 TAB PO ×2 (08:31→16:16)
[2022-01-03] MEDS: ASPIRIN 81 MG ENTERIC TABLET PO (08:31)
[2022-01-03] MEDS: QUEtiapine FUMARATE 25 MG TABLET PO ×3 (08:31→16:17)
[2022-01-03] MEDS: IRBESARTAN 150 MG TABLET PO (08:31)
[2022-01-03] MEDS: METOPROLOL SUCCINATE EXT REL 100 MG TABCR PO (08:31)
[2022-01-03] MEDS: amLODIPine BESYLATE 5 MG TABLET PO (08:31)
[2022-01-03] MEDS: DIVALPROEX SODIUM SPRINKLE 125 MG CAP.DR 250 MG PO ×2 (08:31→16:17)
[2022-01-03] MEDS: MULTIVITAMINS THERAPEUTIC TAB (*BKC) 1 TABLET PO (08:31)
[2022-01-03] MEDS: PANTOPRAZOLE 40 MG TABLET PO ×2 (08:31→19:54)
[2022-01-03] MEDS: EUCERIN CREAM 120 GM JAR 1 APPLIC TOPICAL ×2 (08:32→16:17)
[2022-01-03] MEDS: CELECOXIB 100 MG CAPSULE PO (08:32)
[2022-01-03] MEDS: LORATADINE 10 MG TABLET PO (08:32)
[2022-01-03] MEDS: MEMANTINE 5 MG TABLET PO ×2 (08:32→16:17)
[2022-01-03] MEDS: MUPIROCIN 2% OINT 22 GM TUBE 1 APPLIC TOPICAL ×2 (08:32→16:17)
[2022-01-03] MEDS: DICLOFENAC SODIUM 1% 100 GM GEL (*BKC) 1 APPLIC TOPICAL ×4 (08:32→19:54)
[2022-01-03] MEDS: FLUTICASONE/UMECLIDIN/VILANTER 100-62.5-25 MCG ELLIPTA 1 PUFF INHALATION (08:36)
[2022-01-03 13:51] VITALS: BP 124/56; PULSE 73; RESP 16; TEMP 36.4; O2SAT 95
--- NOTE | 2022-01-03 15:45 | P.PNIM_ITS ---
Progress Note: A&P Assessment and Plan (1) Left wrist fracture: Qualifiers: Encounter type: initial encounter Fracture type: closed Qualified Code(s): S62.102A - Fracture of unspecified carpal bone, left wrist, initial encounter for closed fracture Code(s): S62.102A - Fracture of unspecified carpal bone, left wrist, initial encounter for closed fracture Status: Acute Assessment and Plan: Patient had fall at nursing facility with wrist injury. Wrist x-ray revealed co mminuted fractures of the distal radius and ulna. * Fracture reduced in the ED on 12/30 * Follow-up wrist x-ray revealed transverse fracture of distal radius and ulnar metaphyses * Appreciate orthopedic surgery consultation * s/p close reduction and percutaneous pinning on 01/01/22 * Continue supportive care- change pain regimen to scheduled extra-strength tylenol 1000 mg Q8 hours and PRN tramadol. Patient has allergy to ibuprofen so will avoid this. Continue ice and elevation. * Appreciate PT/OT evaluation. Fall precautions in place * Discharge to rehab pending- waiting for authorization (2) Alzheimer's dementia: Qualifiers: Alzheimer's disease onset: unspecified onset Dementia behavioral disturbance: with behavioral disturbance Qualified Code(s): G30.9 - Alzheimer's disease, unspecified; F02.81 - Dementia in other diseases classified elsewhere with behavioral disturbance Code(s): G30.9 - Alzheimer's disease, unspecified; F02.80 - Dementia in other diseases classified elsewhere without behavioral disturbance Status: Chronic Assessment and Plan: Patient A&O x0. Per daughter/POA, she is at her baseline * Continue memantine * Continue Depakote and Seroquel for h/o behavioral disturbance- pt is pleasant * Caution with narcotics. * Patient reportedly seeing robots . Continue delirium protocol- up in the chair, awake during the day, natural light, limit sleep disruptions. (3) Elevated serum creatinine: Code(s): R79.89 - Other specified abnormal findings of blood chemistry Status: Acute Assessment and Plan: Resolved. BUN 18, creatinine 0.9 on 01/02/22 * Resume Celebrex * Will resume irbesartan with hold parameters. * Encourage PO fluid intake * Monitor labs (4) Hypertension: Qualifiers: Hypertension type: primary hypertension Qualified Code(s): I10 - Essential (primary) hypertension Code(s): I10 - Essential (primary) hypertension Status: Chronic Assessment and Plan: Chronic, blood pressure reviewed and stable. * continue antihypertensives as BP tolerates. (5) Chronic anemia: Code(s): D64.9 - Anemia, unspecified Status: Chronic Assessment and Plan: Hemoglobin and hematocrit are stable at this time * No active bleeding * Monitor H&H (6) COPD (chronic obstructive pulmonary disease): Code(s): J44.9 - Chronic obstructive pulmonary disease, unspecified Status: Acute Assessment and Plan: No acute issues. Not in acute exacerbation * Continue home Trelegy (7) Peripheral vascular disease: Code(s): I73.9 - Peripheral vascular disease, unspecified Status: Acute Assessment and Plan: Family reports history of peripheral vascular disease. Questionable report of right lower extremity stent, no further information available about this at this time * Arterial Doppler completed on presentation which showed mildly decreased right OSMANI and moderately decreased left OSMANI consistent with arterial occlusive d
--- NOTE | 2022-01-03 15:45 | PM.IMPN ---
Progress Note: A&P Assessment and Plan (1) Left wrist fracture: Qualifiers: Encounter type: initial encounter Fracture type: closed Qualified Code(s): S62.102A - Fracture of unspecified carpal bone, left wrist, initial encounter for closed fracture Code(s): S62.102A - Fracture of unspecified carpal bone, left wrist, initial encounter for closed fracture Status: Acute Assessment and Plan: Patient had fall at nursing facility with wrist injury. Wrist x-ray revealed comminuted fractures of the distal radius and ulna. Fracture reduced in the ED on 12/30 Follow-up wrist x-ray revealed transverse fracture of distal radius and ulnar metaphyses Appreciate orthopedic surgery consultation s/p close reduction and percutaneous pinning on 01/01/22 Continue supportive care- change pain regimen to scheduled extra-strength tylenol 1000 mg Q8 hours and PRN tramadol. Patient has allergy to ibuprofen so will avoid this. Continue ice and elevation. Appreciate PT/OT evaluation. Fall precautions in place Discharge to rehab pending- waiting for authorization (2) Alzheimer's dementia: Qualifiers: Alzheimer's disease onset: unspecified onset Dementia behavioral disturbance: with behavioral disturbance Qualified Code(s): G30.9 - Alzheimer's disease, unspecified; F02.81 - Dementia in other diseases classified elsewhere with behavioral disturbance Code(s): G30.9 - Alzheimer's disease, unspecified; F02.80 - Dementia in other diseases classified elsewhere without behavioral disturbance Status: Chronic Assessment and Plan: Patient A&O x0. Per daughter/POA, she is at her baseline Continue memantine Continue Depakote and Seroquel for h/o behavioral disturbance- pt is pleasant Caution with narcotics. Patient reportedly seeing robots . Continue delirium protocol- up in the chair, awake during the day, natural light, limit sleep disruptions. (3) Elevated serum creatinine: Code(s): R79.89 - Other specified abnormal findings of blood chemistry Status: Acute Assessment and Plan: Resolved. BUN 18, creatinine 0.9 on 01/02/22 Resume Celebrex Will resume irbesartan with hold parameters. Encourage PO fluid intake Monitor labs (4) Hypertension: Qualifiers: Hypertension type: primary hypertension Qualified Code(s): I10 - Essential (primary) hypertension Code(s): I10 - Essential (primary) hypertension Status: Chronic Assessment and Plan: Chronic, blood pressure reviewed and stable. continue antihypertensives as BP tolerates. (5) Chronic anemia: Code(s): D64.9 - Anemia, unspecified Status: Chronic Assessment and Plan: Hemoglobin and hematocrit are stable at this time No active bleeding Monitor H&H (6) COPD (chronic obstructive pulmonary disease): Code(s): J44.9 - Chronic obstructive pulmonary disease, unspecified Status: Acute Assessment and Plan: No acute issues. Not in acute exacerbation Continue home Trelegy (7) Peripheral vascular disease: Code(s): I73.9 - Peripheral vascular disease, unspecified Status: Acute Assessment and Plan: Family reports history of peripheral vascular disease. Questionable report of right lower extremity stent, no further information available about this at this time Arterial Doppler completed on presentation which showed mildly decreased right OSMANI and moderately decreased left OSMANI consistent with arterial occlusive disease Patient is established with vascular surgery and should continue with outpatient follow-up No acute changes at this time. No apparent pain. No wounds. Plan CODE STATUS: DNR Disposition: Pending SNF Patient is stable for discharge and pending rehab placement. Time Spent With Patient Time with patient: 15 - 25 minutes Subjective Date/time seen: 01/03/22 15:45 Interval histo
[2022-01-03] MEDS: traMADol HCL (*CRX) 50 MG TABLET PO (19:53)
[2022-01-03] MEDS: PRAVASTATIN SODIUM 20 MG TABLET PO (19:53)
[2022-01-03 20:06] VITALS: BP 117/57; PULSE 68; RESP 16; TEMP 36.2; O2SAT 97
[2022-01-04 06:13] VITALS: BP 149/57; PULSE 62; RESP 18; TEMP 36.4; O2SAT 96
[2022-01-04] MEDS: ACETAMINOPHEN 500 MG TABLET 1000 MG PO ×3 (06:44→20:16)
[2022-01-04 07:41] LABS: Hematocrit 36.9 % (37.0-47.0); Hemoglobin 11.5 g/dL (12.0-15.0); Mean Corpuscular HGB Conc 31.2 g/dl (32-36); Mean Corpuscular Hemoglobin 27.3 pg (26-34); Mean Corpuscular Volume 87.6 fl (80-100); Mean Platelet Volume 11.5 fl (7.4-10.4); Platelet Count Result 136 k/mm3 (150-375); Red Blood Count 4.21 M/mm3 (4.2-5.4); Red Cell Distribution Width 13.7 % (11.5-14.5); White Blood Count 2.7 K/mm3 (4.5-10.0)
[2022-01-04 07:45] LABS: Anion Gap 13 mmol/L (8-16); Blood Urea Nitrogen 28 mg/dL (7-17); Calcium 8.2 mg/dL (8.4-10.2); Carbon Dioxide 23 mmol/L (22-30); Chloride 106 mmol/L (98-107); Estimated Glomerular Filt Rate 53; Glucose 95 mg/dL (65-110); Potassium 3.9 mmol/L (3.4-5.0); Sodium 142 mmol/L (137-145)
[2022-01-04] MEDS: QUEtiapine FUMARATE 25 MG TABLET PO ×3 (08:45→16:38)
[2022-01-04 08:46] VITALS: PULSE 68
[2022-01-04] MEDS: PANTOPRAZOLE 40 MG TABLET PO ×2 (08:46→20:13)
[2022-01-04] MEDS: SENNA/DOCUSATE SODIUM TABLET 2 TAB PO ×2 (08:46→16:37)
[2022-01-04] MEDS: SACCHAROMYCES BOULARDII 250 MG CAPSULE PO ×2 (08:46→16:38)
[2022-01-04] MEDS: amLODIPine BESYLATE 5 MG TABLET PO (08:46)
[2022-01-04] MEDS: METOPROLOL SUCCINATE EXT REL 100 MG TABCR PO (08:46)
[2022-01-04] MEDS: LORATADINE 10 MG TABLET PO (08:46)
[2022-01-04] MEDS: IRBESARTAN 150 MG TABLET PO (08:46)
[2022-01-04] MEDS: DIVALPROEX SODIUM SPRINKLE 125 MG CAP.DR 250 MG PO ×2 (08:46→16:36)
[2022-01-04] MEDS: CELECOXIB 100 MG CAPSULE PO (08:46)
[2022-01-04] MEDS: MEMANTINE 5 MG TABLET PO ×2 (08:46→16:37)
[2022-01-04] MEDS: ASPIRIN 81 MG ENTERIC TABLET PO (08:47)
[2022-01-04] MEDS: MUPIROCIN 2% OINT 22 GM TUBE 1 APPLIC TOPICAL ×2 (08:47→16:37)
[2022-01-04] MEDS: MULTIVITAMINS THERAPEUTIC TAB (*BKC) 1 TABLET PO (08:47)
[2022-01-04] MEDS: EUCERIN CREAM 120 GM JAR 1 APPLIC TOPICAL ×2 (08:47→16:37)
[2022-01-04] MEDS: DICLOFENAC SODIUM 1% 100 GM GEL (*BKC) 1 APPLIC TOPICAL ×4 (08:47→20:14)
[2022-01-04] MEDS: FLUTICASONE/UMECLIDIN/VILANTER 100-62.5-25 MCG ELLIPTA 1 PUFF INHALATION (09:40)
[2022-01-04] MEDS: CEPHALEXIN 250 MG CAPSULE PO ×2 (12:59→20:16)
--- NOTE | 2022-01-04 13:25 | P.PNIM_ITS ---
Progress Note: A&P Assessment and Plan (1) Left wrist fracture: Qualifiers: Encounter type: initial encounter Fracture type: closed Qualified Code(s): S62.102A - Fracture of unspecified carpal bone, left wrist, initial encounter for closed fracture Code(s): S62.102A - Fracture of unspecified carpal bone, left wrist, initial encounter for closed fracture Status: Acute Assessment and Plan: Patient had fall at nursing facility with wrist injury. Wrist x-ray revealed co mminuted fractures of the distal radius and ulna. * Fracture reduced in the ED on 12/30 * Follow-up wrist x-ray revealed transverse fracture of distal radius and ulnar metaphyses * Appreciate orthopedic surgery consultation * s/p close reduction and percutaneous pinning on 01/01/22 * Continue supportive care- change pain regimen to scheduled extra-strength tylenol 1000 mg Q8 hours and PRN tramadol. Patient has allergy to ibuprofen so will avoid this. Continue ice and elevation. * Appreciate PT/OT evaluation. Fall precautions in place * 01/04/22 Keflex 250 mg TID x3 weeks per Ortho (2) Alzheimer's dementia: Qualifiers: Alzheimer's disease onset: unspecified onset Dementia behavioral disturbance: with behavioral disturbance Qualified Code(s): G30.9 - Alzheimer's disease, unspecified; F02.81 - Dementia in other diseases classified elsewhere w ith behavioral disturbance Code(s): G30.9 - Alzheimer's disease, unspecified; F02.80 - Dementia in other diseases classified elsewhere without behavioral disturbance Status: Chronic Assessment and Plan: Patient A&O x0. Per daughter/POA, she is at her baseline * Continue memantine * Continue Depakote and Seroquel for h/o behavioral disturbance- pt is pleasant * Caution with narcotics. * Patient reportedly seeing robots . Continue delirium protocol- up in the chair, awake during the day, natural light, limit sleep disruptions. (3) Elevated serum creatinine: Code(s): R79.89 - Other specified abnormal findings of blood chemistry Status: Resolved Assessment and Plan: Resolved. BUN 18, creatinine 0.9 on 01/02/22 * Continue Irbesartan and Celebrex * Stable (4) Hypertension: Qualifiers: Hypertension type: primary hypertension Qualified Code(s): I10 - Essential (primary) hypertension Code(s): I10 - Essential (primary) hypertension Status: Chronic Assessment and Plan: Chronic, blood pressure reviewed and stable. * continue antihypertensives as BP tolerates. * Given patient's age, dementia and frequent falls, strict BP control may cause more harm that benefit. Goal <160/90 (5) Chronic anemia: Code(s): D64.9 - Anemia, unspecified Status: Chronic Assessment and Plan: Hemoglobin and hematocrit are stable at this time * No active bleeding * H/H stable (6) COPD (chronic obstructive pulmonary disease): Code(s): J44.9 - Chronic obstructive pulmonary disease, unspecified Status: Acute Assessment and Plan: No acute issues. Not in acute exacerbation * Continue home Trelegy (7) Peripheral vascular disease: Code(s): I73.9 - Peripheral vascular disease, unspecified Status: Acute Assessment and Plan: Family reports history of peripheral vascular disease. Questionable report of right lower extremity stent, no further information available about this at this time * Arterial Doppler completed on presentation which showed mildly decreased right OSMANI and moderately decreased left OSMANI
--- NOTE | 2022-01-04 13:25 | PM.IMPN ---
Progress Note: A&P Assessment and Plan (1) Left wrist fracture: Qualifiers: Encounter type: initial encounter Fracture type: closed Qualified Code(s): S62.102A - Fracture of unspecified carpal bone, left wrist, initial encounter for closed fracture Code(s): S62.102A - Fracture of unspecified carpal bone, left wrist, initial encounter for closed fracture Status: Acute Assessment and Plan: Patient had fall at nursing facility with wrist injury. Wrist x-ray revealed comminuted fractures of the distal radius and ulna. Fracture reduced in the ED on 12/30 Follow-up wrist x-ray revealed transverse fracture of distal radius and ulnar metaphyses Appreciate orthopedic surgery consultation s/p close reduction and percutaneous pinning on 01/01/22 Continue supportive care- change pain regimen to scheduled extra-strength tylenol 1000 mg Q8 hours and PRN tramadol. Patient has allergy to ibuprofen so will avoid this. Continue ice and elevation. Appreciate PT/OT evaluation. Fall precautions in place 01/04/22 Keflex 250 mg TID x3 weeks per Ortho (2) Alzheimer's dementia: Qualifiers: Alzheimer's disease onset: unspecified onset Dementia behavioral disturbance: with behavioral disturbance Qualified Code(s): G30.9 - Alzheimer's disease, unspecified; F02.81 - Dementia in other diseases classified elsewhere with behavioral disturbance Code(s): G30.9 - Alzheimer's disease, unspecified; F02.80 - Dementia in other diseases classified elsewhere without behavioral disturbance Status: Chronic Assessment and Plan: Patient A&O x0. Per daughter/POA, she is at her baseline Continue memantine Continue Depakote and Seroquel for h/o behavioral disturbance- pt is pleasant Caution with narcotics. Patient reportedly seeing robots . Continue delirium protocol- up in the chair, awake during the day, natural light, limit sleep disruptions. (3) Elevated serum creatinine: Code(s): R79.89 - Other specified abnormal findings of blood chemistry Status: Resolved Assessment and Plan: Resolved. BUN 18, creatinine 0.9 on 01/02/22 Continue Irbesartan and Celebrex Stable (4) Hypertension: Qualifiers: Hypertension type: primary hypertension Qualified Code(s): I10 - Essential (primary) hypertension Code(s): I10 - Essential (primary) hypertension Status: Chronic Assessment and Plan: Chronic, blood pressure reviewed and stable. continue antihypertensives as BP tolerates. Given patient's age, dementia and frequent falls, strict BP control may cause more harm that benefit. Goal <160/90 (5) Chronic anemia: Code(s): D64.9 - Anemia, unspecified Status: Chronic Assessment and Plan: Hemoglobin and hematocrit are stable at this time No active bleeding H/H stable (6) COPD (chronic obstructive pulmonary disease): Code(s): J44.9 - Chronic obstructive pulmonary disease, unspecified Status: Acute Assessment and Plan: No acute issues. Not in acute exacerbation Continue home Trelegy (7) Peripheral vascular disease: Code(s): I73.9 - Peripheral vascular disease, unspecified Status: Acute Assessment and Plan: Family reports history of peripheral vascular disease. Questionable report of right lower extremity stent, no further information available about this at this time Arterial Doppler completed on presentation which showed mildly decreased right OSMANI and moderately decreased left OSMANI consistent with arterial occlusive disease Patient is established with vascular surgery and should continue with outpatient follow-up No acute changes at this time. No apparent pain. No wounds. Plan CODE STATUS: DNR Disposition: Pending SNF Patient is stable for discharge and pending disposition. Her daughter is trying to get her into acute rehab, however, she has been denied by several fa
[2022-01-04 14:00] VITALS: BP 119/61; PULSE 60; RESP 18; TEMP 36.3; O2SAT 92
[2022-01-04] MEDS: PRAVASTATIN SODIUM 20 MG TABLET PO (20:13)
[2022-01-04 22:00] VITALS: BP 127/51; PULSE 71; RESP 15; TEMP 36.4; O2SAT 97
[2022-01-05] VITALS (7 sets, daily range): BP systolic 136–193; BP diastolic 66–109; PULSE 71–107; RESP 15–22; TEMP 36–36.6; O2SAT 91–98
[2022-01-05] MEDS: ACETAMINOPHEN 500 MG TABLET 1000 MG PO ×3 (06:22→20:37)
[2022-01-05] MEDS: CEPHALEXIN 250 MG CAPSULE PO ×3 (06:22→20:37)
[2022-01-05] MEDS: FLUTICASONE/UMECLIDIN/VILANTER 100-62.5-25 MCG ELLIPTA 1 PUFF INHALATION (08:00)
[2022-01-05] MEDS: DIVALPROEX SODIUM SPRINKLE 125 MG CAP.DR 250 MG PO ×2 (09:13→17:57)
[2022-01-05] MEDS: CELECOXIB 100 MG CAPSULE PO (09:13)
[2022-01-05] MEDS: amLODIPine BESYLATE 5 MG TABLET PO (09:13)
[2022-01-05] MEDS: SENNA/DOCUSATE SODIUM TABLET 2 TAB PO ×2 (09:13→17:57)
[2022-01-05] MEDS: DICLOFENAC SODIUM 1% 100 GM GEL (*BKC) 1 APPLIC TOPICAL ×4 (09:13→20:37)
[2022-01-05] MEDS: ASPIRIN 81 MG ENTERIC TABLET PO (09:13)
[2022-01-05] MEDS: IRBESARTAN 150 MG TABLET PO (09:13)
[2022-01-05] MEDS: EUCERIN CREAM 120 GM JAR 1 APPLIC TOPICAL ×2 (09:14→17:57)
[2022-01-05] MEDS: MULTIVITAMINS THERAPEUTIC TAB (*BKC) 1 TABLET PO (09:14)
[2022-01-05] MEDS: QUEtiapine FUMARATE 25 MG TABLET PO ×2 (09:14→20:37)
[2022-01-05] MEDS: LORATADINE 10 MG TABLET PO (09:14)
[2022-01-05] MEDS: PANTOPRAZOLE 40 MG TABLET PO ×2 (09:14→20:37)
[2022-01-05] MEDS: SACCHAROMYCES BOULARDII 250 MG CAPSULE PO ×2 (09:14→18:15)
[2022-01-05] MEDS: MEMANTINE 5 MG TABLET PO ×2 (09:14→18:15)
[2022-01-05] MEDS: METOPROLOL SUCCINATE EXT REL 100 MG TABCR PO (09:20)
[2022-01-05] MEDS: MUPIROCIN 2% OINT 22 GM TUBE 1 APPLIC TOPICAL ×2 (09:20→17:58)
--- NOTE | 2022-01-05 09:45 | P.PNIM_ITS ---
Progress Note: A&P Assessment and Plan (1) Left wrist fracture: Qualifiers: Encounter type: initial encounter Fracture type: closed Qualified Code(s): S62.102A - Fracture of unspecified carpal bone, left wrist, initial encounter for closed fracture Code(s): S62.102A - Fracture of unspecified carpal bone, left wrist, initial encounter for closed fracture Status: Acute Assessment and Plan: Patient had fall at nursing facility with wrist injury. Wrist x-ray revealed co mminuted fractures of the distal radius and ulna. * Fracture reduced in the ED on 12/30 * Follow-up wrist x-ray revealed transverse fracture of distal radius and ulnar metaphyses * Appreciate orthopedic surgery consultation * s/p close reduction and percutaneous pinning on 01/01/22 * Continue supportive care- change pain regimen to scheduled extra-strength tylenol 1000 mg Q8 hours and PRN tramadol. Patient has allergy to ibuprofen so will avoid this. Continue ice and elevation. * Appreciate PT/OT evaluation. Fall precautions in place * 01/04/22 Keflex 250 mg TID x3 weeks per Ortho (2) Alzheimer's dementia: Qualifiers: Alzheimer's disease onset: unspecified onset Dementia behavioral disturbance: with behavioral disturbance Qualified Code(s): G30.9 - Alzheimer's disease, unspecified; F02.81 - Dementia in other diseases classified elsewhere w ith behavioral disturbance Code(s): G30.9 - Alzheimer's disease, unspecified; F02.80 - Dementia in other diseases classified elsewhere without behavioral disturbance Status: Chronic Assessment and Plan: Patient A&O x0. Per daughter/POA, she is at her baseline * Continue memantine * Continue Depakote and Seroquel for h/o behavioral disturbance- pt is pleasant * Caution with narcotics. * Patient reportedly seeing robots . Continue delirium protocol- up in the chair, awake during the day, natural light, limit sleep disruptions. (3) Elevated serum creatinine: Code(s): R79.89 - Other specified abnormal findings of blood chemistry Status: Resolved Assessment and Plan: Resolved. BUN 28, creatinine 1.00 on 01/02/22 * Continue Irbesartan and Celebrex * Stable (4) Hypertension: Qualifiers: Hypertension type: primary hypertension Qualified Code(s): I10 - Essential (primary) hypertension Code(s): I10 - Essential (primary) hypertension Status: Chronic Assessment and Plan: Chronic, blood pressure reviewed and stable. Currently 170/74 * continue antihypertensives as BP tolerates. * Given patient's age, dementia and frequent falls, strict BP control may cause more harm that benefit. Goal <160/90 (5) Chronic anemia: Code(s): D64.9 - Anemia, unspecified Status: Chronic Assessment and Plan: Hemoglobin and hematocrit are stable at this time * No active bleeding * H/H stable currently 11.5/36.9 (6) COPD (chronic obstructive pulmonary disease): Code(s): J44.9 - Chronic obstructive pulmonary disease, unspecified Status: Acute Assessment and Plan: No acute issues. Not in acute exacerbation * Continue home Trelegy (7) Peripheral vascular disease: Code(s): I73.9 - Peripheral vascular disease, unspecified Status: Acute Assessment and Plan: Family reports history of peripheral vascular disease. Questionable report of right lower extremity stent, no further information available about this at this time * Arterial Doppler completed on presentation which showed mildly decreased right
[2022-01-05] MEDS: traMADol HCL (*CRX) 50 MG TABLET PO (18:01)
[2022-01-05] MEDS: PRAVASTATIN SODIUM 20 MG TABLET PO (20:37)
[2022-01-06] MEDS: ACETAMINOPHEN 500 MG TABLET 1000 MG PO ×2 (05:49→13:49)
[2022-01-06] MEDS: CEPHALEXIN 250 MG CAPSULE PO ×2 (05:49→13:50)
[2022-01-06 06:00] VITALS: BP 145/69; PULSE 57; RESP 18; TEMP 37; O2SAT 92
[2022-01-06 08:54] VITALS: PULSE 72
[2022-01-06] MEDS: LORATADINE 10 MG TABLET PO (08:54)
[2022-01-06] MEDS: PANTOPRAZOLE 40 MG TABLET PO (08:54)
[2022-01-06] MEDS: METOPROLOL SUCCINATE EXT REL 100 MG TABCR PO (08:54)
[2022-01-06] MEDS: SACCHAROMYCES BOULARDII 250 MG CAPSULE PO (08:55)
[2022-01-06] MEDS: IRBESARTAN 150 MG TABLET PO (08:55)
[2022-01-06] MEDS: SENNA/DOCUSATE SODIUM TABLET 2 TAB PO (08:55)
[2022-01-06] MEDS: MULTIVITAMINS THERAPEUTIC TAB (*BKC) 1 TABLET PO (08:55)
[2022-01-06] MEDS: DIVALPROEX SODIUM SPRINKLE 125 MG CAP.DR 250 MG PO (08:56)
[2022-01-06] MEDS: DICLOFENAC SODIUM 1% 100 GM GEL (*BKC) 1 APPLIC TOPICAL ×2 (08:56→13:50)
[2022-01-06] MEDS: CELECOXIB 100 MG CAPSULE PO (08:56)
[2022-01-06] MEDS: EUCERIN CREAM 120 GM JAR 1 APPLIC TOPICAL (08:56)
[2022-01-06] MEDS: amLODIPine BESYLATE 5 MG TABLET PO (08:56)
[2022-01-06] MEDS: ASPIRIN 81 MG ENTERIC TABLET PO (08:56)
[2022-01-06] MEDS: MUPIROCIN 2% OINT 22 GM TUBE 1 APPLIC TOPICAL (08:57)
[2022-01-06] MEDS: MEMANTINE 5 MG TABLET PO (09:23)
--- NOTE | 2022-01-06 10:45 | PM.DS ---
DS: Admitting Diagnosis Discharge Date 01/06/22 1045 Admitting Diagnosis Wrist fracture/Dizziness/HTN/Dementia DS: Discharge Diagnosis Discharge Diagnosis (1) Left wrist fracture: Qualifiers: Encounter type: initial encounter Fracture type: closed Qualified Code(s): S62.102A - Fracture of unspecified carpal bone, left wrist, initial encounter for closed fracture Code(s): S62.102A - Fracture of unspecified carpal bone, left wrist, initial encounter for closed fracture Status: Acute Assessment and Plan: Patient had fall at nursing facility with wrist injury. Wrist x-ray revealed comminuted fractures of the distal radius and ulna. Fracture reduced in the ED on 12/30 Follow-up wrist x-ray revealed transverse fracture of distal radius and ulnar metaphyses Appreciate orthopedic surgery consultation s/p close reduction and percutaneous pinning on 01/01/22 Continue supportive care- change pain regimen to scheduled extra-strength tylenol 1000 mg Q8 hours and PRN tramadol. Patient has allergy to ibuprofen so will avoid this. Continue ice and elevation. Appreciate PT/OT evaluation. Fall precautions in place 01/04/22 Keflex 250 mg TID x3 weeks per Ortho (2) Alzheimer's dementia: Qualifiers: Alzheimer's disease onset: unspecified onset Dementia behavioral disturbance: with behavioral disturbance Qualified Code(s): G30.9 - Alzheimer's disease, unspecified; F02.81 - Dementia in other diseases classified elsewhere with behavioral disturbance Code(s): G30.9 - Alzheimer's disease, unspecified; F02.80 - Dementia in other diseases classified elsewhere without behavioral disturbance Status: Chronic Assessment and Plan: Patient A&O x0. Per daughter/POA, she is at her baseline Continue memantine Continue Depakote and Seroquel for h/o behavioral disturbance- pt is pleasant Caution with narcotics. Patient reportedly seeing robots . Continue delirium protocol- up in the chair, awake during the day, natural light, limit sleep disruptions. (3) Elevated serum creatinine: Code(s): R79.89 - Other specified abnormal findings of blood chemistry Status: Resolved Assessment and Plan: Resolved. BUN 28, creatinine 1.00 on 01/02/22 Continue Irbesartan and Celebrex Stable (4) Hypertension: Qualifiers: Hypertension type: primary hypertension Qualified Code(s): I10 - Essential (primary) hypertension Code(s): I10 - Essential (primary) hypertension Status: Chronic Assessment and Plan: Chronic, blood pressure reviewed and stable. Currently 170/74 continue antihypertensives as BP tolerates. Given patient's age, dementia and frequent falls, strict BP control may cause more harm that benefit. Goal <160/90 (5) Chronic anemia: Code(s): D64.9 - Anemia, unspecified Status: Chronic Assessment and Plan: Hemoglobin and hematocrit are stable at this time No active bleeding H/H stable currently 11.5/36.9 (6) COPD (chronic obstructive pulmonary disease): Code(s): J44.9 - Chronic obstructive pulmonary disease, unspecified Status: Acute Assessment and Plan: No acute issues. Not in acute exacerbation Continue home Trelegy (7) Peripheral vascular disease: Code(s): I73.9 - Peripheral vascular disease, unspecified Status: Acute Assessment and Plan: Family reports history of peripheral vascular disease. Questionable report of right lower extremity stent, no further information available about this at this time Arterial Doppler completed on presentation which showed mildly decreased right OSMANI and moderately decreased left OSMANI consistent with arterial occlusive disease Patient is established with vascular surgery and should continue with outpatient follow-up No acute changes at this time. No apparent pain. No wounds. (8) Orthostatic hypertension: Code(s)
[2022-01-06 14:00] VITALS: BP 142/67; PULSE 69; RESP 18; TEMP 36.1; O2SAT 97
--- NOTE | 2022-01-06 14:34 | PM.PNORT ---
Progress Note: A&P Assessment and Plan (1) Left wrist fracture: Qualifiers: Encounter type: initial encounter Fracture type: closed Qualified Code(s): S62.102A - Fracture of unspecified carpal bone, left wrist, initial encounter for closed fracture Code(s): S62.102A - Fracture of unspecified carpal bone, left wrist, initial encounter for closed fracture Status: Acute (2) Alzheimer's dementia: Qualifiers: Alzheimer's disease onset: unspecified onset Dementia behavioral disturbance: with behavioral disturbance Qualified Code(s): G30.9 - Alzheimer's disease, unspecified; F02.81 - Dementia in other diseases classified elsewhere with behavioral disturbance Code(s): G30.9 - Alzheimer's disease, unspecified; F02.80 - Dementia in other diseases classified elsewhere without behavioral disturbance Status: Chronic Plan POD #5 Closed reduction, percutaneous pinning left wrist distal radius and ulnar fractures with long-arm cast application. Patient tolerated surgery well. She has been working with PT/OT. She is discharging back to her memory care. Cast intact. Mild swelling. Wiggles fingers. Spoke to patient's daughter at the bedside. Discussed discharge instructions and expectations with patient's daughter. Answered all questions. Daughter is very pleased. Ortho instructions: D/C to memory care. Follow up in office at 3 weeks post op. Will xray, remove cast, and clean pins. Will plan on applying short arm cast at that time for another 2-3 weeks and then pulling the pins. Please call [facility] for an appointment. I recommend ice and elevation to help with pain and swelling. If swelling increases and concern that cast is too tight, please call our office. Wound Care: Keep cast dry and clean. Will order Keflex TID for 3 weeks to decrease risk of infection. PT: Sling for comfort. No weight bearing with casted arm. Shoulder and finger ROM okay. Pain medication: Tylenol. Subjective Subjective Date/Time Seen: 01/06/22 14:34 Interval history: Patient resting comfortably in a chair. Daughter at bedside. Patient more alert today. Wiggles fingers. States she is not having any pain. Review of Systems Review of Systems: ROS unobtainable: Yes unobtainable due to medical condition Exam Narrative: Thin, elderly 86 y/o female. Patient has demential. Cast intact. Wiggles fingers. Mild swelling. No ecchymosis. Light touch sensation intact. Good capillary refill. Objective Data Vital Signs Vital Signs: Vital Signs - 24 hr 01/05/22 18:42 01/05/22 22:00 01/06/22 06:00 Temperature 97 F L 97.8 F 98.6 F Pulse Rate 107 H 71 57 L Respiratory Rate 22 H 18 18 Blood Pressure 157/70 H 136/73 145/69 H Pulse Oximetry 93 97 92 Oxygen Delivery 01/06/22 08:54 01/06/22 08:00 01/06/22 14:00 Temperature 97 F L Pulse Rate 72 69 Respiratory Rate 18 Blood Pressure 142/67 H Pulse Oximetry 97 Oxygen Delivery Room Air Intake/Output Intake/Output: Intake & Output 01/03/22 01/04/22 01/05/22 01/06/22 23:59 23:59 23:59 23:59 Intake Total 925 040 9994 790 Output Total 500 200 Balance 277 309 3015 590 Meds/Results Medications: Active Medications Generic Name Dose Route Start Last Admin Trade Name Jonyq PRN Reason Stop Dose Admin Acetaminophen 1,000 mg 01/02/22 14:00 01/06/22 13:49 Acetaminophen 500 Mg Tablet PO 1,000 mg Q8HR IRIS Administration Amlodipine Besylate 5 mg 12/31/21 09:00 01/06/22 08:56 Amlodipine Besylate 5 Mg Tablet PO 5 mg DAILY IRIS Administration Aspirin 81 mg 12/31/21 09:00 01/06/22 08:56 Aspirin 81 Mg Enteric Tablet PO 81 mg DAILY IRIS Administration Celecoxib 100 mg 01/03/22 08:00 01/06/22 08:56 Celecoxib 100 Mg Capsule PO 100 mg DAILY@0800 IRIS Administration Cephalexin HCl 250 mg 01/04/22 14:00 01/06/22 13:50 Cephalexin 250 Mg Capsule PO 250 mg Q8HR IRIS Adm
== END 2022-01-06 14:56 | disposition home health service (06) | DRG 512 ==
LOC: ANHED 03:53 → ANH3MEDSUR 13:08
PROVIDERS: Emergency Medicine; Nurse Practitioner; Nurse Practitioner Family; Orthopaedic Surgery; Physician Assistant; Admitting Provider Student in an Organized Health Care Education/Training Program; Emergency Provider Emergency Medicine; PCP Nurse Practitioner Family; Visit Provider Nurse Practitioner
PROC: 0PSJ34Z Reposition Left Radius with Internal Fixation Device, Percutaneous Approach (ICD-10-PCS; principal; 2022-01-01 15:00)
DX: S52.552A Other extraarticular fracture of lower end of left radius, initial encounter for closed fracture (principal); S52.692A Other fracture of lower end of left ulna, initial encounter for closed fracture; G30.9 Alzheimer's disease, unspecified; F02.80 Dementia in other diseases classified elsewhere, unspecified severity, without behavioral disturbance, psychotic disturbance, mood disturbance, and anxiety; I73.9 Peripheral vascular disease, unspecified; F41.9 Anxiety disorder, unspecified; E86.0 Dehydration; R79.89 Other specified abnormal findings of blood chemistry; D64.9 Anemia, unspecified; E78.00 Pure hypercholesterolemia, unspecified; J44.9 Chronic obstructive pulmonary disease, unspecified; G47.00 Insomnia, unspecified; K21.9 Gastro-esophageal reflux disease without esophagitis; M17.12 Unilateral primary osteoarthritis, left knee; I10 Essential (primary) hypertension; R42 Dizziness and giddiness; W19.XXXA Unspecified fall, initial encounter; Z66 Do not resuscitate; Z91.81 History of falling; Z79.899 Other long term (current) drug therapy; Z85.51 Personal history of malignant neoplasm of bladder; Z86.12 Personal history of poliomyelitis; Z95.828 Presence of other vascular implants and grafts
CPT/HCPCS: 25624; 36415; 70450; 73100; 73110; 73502; 73564; 80048; 80053; 81003; 83605; 83735; 85025; 85027; 85055; 93005; 93923; 94640; 96365; 96375; 97112; 97116; 97162; 97165; 97530; 99199; 99285; A4565; A9270; J0131; J0360; J0690; J1170; J2270; J2370; J2405; J3010; J7120

== ENCOUNTER 2022-01-12 20:13 | Emergency (ER) | payer MEDICARE, SELFPAY ==
[2022-01-12 20:16] VITALS: BP 159/68; PULSE 69; RESP 18; TEMP 36.4; O2SAT 98
--- NOTE | 2022-01-12 20:42 | ED.GENADULT ---
HPI - General Adult General Chief complaint: Recheck/Abnormal Lab/Rx Stated complaint: fingers purple below cast Time Seen by Provider: 01/12/22 20:28 History of Present Illness HPI narrative: Is a 6-year-old female presenting to ED with discoloration of her fingers. Patient on had a broken wrist on 01/01 which was repaired with closed reduction and pinning. She is now in long-arm cast. [facility] of discoloration of her fingers. patient is not complaining of pain. She is able to move her fingers. Patient has dependentbruising over the 4th and 5th digit. Related Data Home Medications Medication Instructions Recorded Confirmed fluticasone fur. 100 mcg-umeclid 1 inh inhalation DAILY 07/26/21 12/30/21 62.5 mcg-vilant 25 mcg inhalat.powder (Trelegy Ellipta) pantoprazole 40 mg tablet,delayed 40 mg PO BID 07/26/21 12/30/21 release pravastatin 20 mg tablet 20 mg PO HS 07/26/21 12/30/21 amlodipine 5 mg tablet 5 mg PO DAILY 07/27/21 12/30/21 celecoxib 100 mg capsule 100 mg PO BID 07/27/21 12/30/21 emollient combination no.72 1 ea topical BID 07/27/21 12/30/21 (Eucerin Intensive Repair lotion) loratadine 10 mg tablet 10 mg PO DAILY 07/27/21 12/30/21 memantine 5 mg tablet 5 mg PO BID 07/27/21 12/30/21 menthol 5 % topical patch (Icy Hot 1 patch topical DAILY 07/27/21 12/30/21 (menthol)) metoprolol succinate 100 mg 100 mg PO DAILY 07/27/21 12/30/21 tablet,extended release 24 hr multivitamin 1 tablet PO DAILY 07/27/21 12/30/21 mupirocin 2 % topical ointment 1 applic topical BID 07/27/21 12/30/21 aspirin 81 mg tablet,delayed 81 mg PO DAILY 12/30/21 12/30/21 release diclofenac sodium 1 % topical gel 1 ea topical QID 12/30/21 12/30/21 divalproex 125 mg capsule,delayed 250 mg PO BID 12/30/21 12/30/21 release sprinkle eszopiclone 2 mg tablet 2 mg PO HS 12/30/21 12/30/21 Allergies Allergy/AdvReac Type Severity Reaction Status Date / Time HI Inhibitors Allergy Unknown Verified 01/12/22 20:36 atorvastatin Allergy Unknown Verified 01/12/22 20:36 famotidine Allergy Unknown Verified 01/12/22 20:36 ibuprofen Allergy Unknown Verified 01/12/22 20:36 methylprednisolone Allergy Unknown Verified 01/12/22 20:36 rosuvastatin Allergy Unknown Verified 01/12/22 20:36 Review of Systems Review of Systems: CONSTITUTIONAL: Denies night sweats. EYES: No eye pain ENT: Denies rhinorrhea CARDIOVASCULAR: Denies palpitations RESPIRATORY: Denies hemoptysis GASTROINTESTINAL: Denies hematemesis GENITOURINARY: Denies hematuria. SKIN: Denies rash MUSCULOSKELETAL: Denies myalgia. NEUROLOGIC: Denies weakness. PSYCHIATRIC: Denies delusions PMF Past Medical History Medical History Alzheimer's dementia COPD (chronic obstructive pulmonary disease) E coli infection Fractured tarsal bone GERD (gastroesophageal reflux disease) Hypercholesterolemia Hypertension Left wrist fracture Neck fracture Pelvis fracture Peripheral vascular disease Polio Urinary bladder cancer 2017 Surgical History Surgical History H/O cardiac catheterization H/O cystoscopy S/P peripheral artery angioplasty with stent placement S/P rotator cuff repair Family History Family History Father Heart disease Mother Heart disease Social History Social History Social History: The patient resides at [facility]. She is and has 2 children. 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 She is a former smoker. She has 2 children and the daughter is the durable power workers compensation attorney for healthcare. Code status DNR Years smoked: 35 Smoking status: Former smoker Tobacco type: cigarettes Alcohol intake: n
--- NOTE | 2022-01-12 20:43 | PC.NURSE ---
PATIENT WITH LONG ARM CAST TO LEFT ARM. LEFT FINGERS ARE WARM WITH BRISK, CAPILLARY REFILL. STRONG LEFT RADIAL PULSE. PATIENT NOTED TO HAVE PURPLISH DISCOLORATION TO FINGERTIPS. PATIENT WITH HISTORY OF RECENT LEFT ARM ORTHOPEDIC SURGERY.
== END 2022-01-12 21:35 ==
PROVIDERS: Emergency Provider Emergency Medicine; PCP Nurse Practitioner Family
DX: S60.042D Contusion of left ring finger without damage to nail, subsequent encounter (principal); S60.052D Contusion of left little finger without damage to nail, subsequent encounter; S62.102D Fracture of unspecified carpal bone, left wrist, subsequent encounter for fracture with routine healing; M25.562 Pain in left knee; G30.9 Alzheimer's disease, unspecified; F02.80 Dementia in other diseases classified elsewhere, unspecified severity, without behavioral disturbance, psychotic disturbance, mood disturbance, and anxiety; J44.9 Chronic obstructive pulmonary disease, unspecified; E78.00 Pure hypercholesterolemia, unspecified; I10 Essential (primary) hypertension; I73.9 Peripheral vascular disease, unspecified; K21.9 Gastro-esophageal reflux disease without esophagitis; Z95.5 Presence of coronary angioplasty implant and graft; Z85.51 Personal history of malignant neoplasm of bladder; Z86.12 Personal history of poliomyelitis; Z87.891 Personal history of nicotine dependence; Z79.82 Long term (current) use of aspirin; X58.XXXD Exposure to other specified factors, subsequent encounter
CPT/HCPCS: 99281

== ENCOUNTER 2022-02-28 18:20 | Emergency (ER) | payer MEDICARE, SELFPAY ==
[2022-02-28] VITALS (16 sets, daily range): BP systolic 104–138; BP diastolic 46–80; PULSE 58; RESP 16; TEMP 36.4; O2SAT 93–99
--- NOTE | ~2022-02-28 | XR_ITS ---
EXAM: XR hip RT 2V w AP pelvis DATE: 02/28/2022 19:31 HISTORY: right hip pain, fall . COMPARISON: 12/30/2021. FINDINGS: Decreased mineralization. No fracture or dislocation. No lytic or blastic lesion. Degenera tive change in the lumbar spine bilateral hips and pubic symphysis. No erosion or periosteal change. Right common iliac stent. Vascular calcifications. IMPRESSION: No acute osseous finding in the pelvis or right hip. Reviewed, dictated and finalized at location K.
--- NOTE | ~2022-02-28 | CT_ITS ---
EXAMINATION: CT cervical spine wo con DATE: 02/28/2022 19:52 INDICATION: neck pain, fall TECHNIQUE: Computed tomography (CT) of the cervical spine was performed without intravenous contrast. Automated exposure control and iterative reconstruction technique were employed. The dose-length pro duct was 82.10 mGy-cm. COMPARISON: None FINDINGS: Vertebral Body Alignment: Intact. Grade 1 anterolistheses at C2-3 and C3-4, presumably on a degenerat ramone basis. Craniocervical and atlantoaxial alignment: Moderate degenerative change. Alignment intact. Osseous structures/fracture: No evidence of a lytic or blastic process in the visualized spine. No e vidence of acute fracture. Cervical soft tissues: The paraspinal soft tissues planes are maintained. Left apical pleural scarrin g. Degenerative changes: Multilevel severe degenerative disc disease in the lower cervical spine. Multil evel severe facet arthropathy. Multilevel severe bilateral neural foraminal narrowing. No severe cent ral canal stenosis. IMPRESSION: No acute fracture or traumatic malalignment in the cervical spine. Reviewed, dictated and finalized at location K.
--- NOTE | ~2022-02-28 | CT_ITS ---
EXAMINATION: CT brain wo con DATE: 02/28/2022 19:52 INDICATION: head injury, fall, lac to back of head . TECHNIQUE: Computed tomography (CT) of the head was performed without intravenous contrast. The mA wa s adjusted according to patient size. Iterative reconstruction technique was employed. The dose-lengt h product was 605.33 mGy-cm. COMPARISON: 12/30/2021 FINDINGS: No acute intracranial hemorrhage or extra-axial fluid collection. No hydrocephalus, mass, or herniation. No acute ischemic infarct. Unremarkable dural venous sinus attenuation. No acute osseous abnormality. The aerated spaces are clear. Mild atrophy and moderate chronic white matter change. Atherosclerotic intracranial calcification. Ol d bilateral basal ganglia lacunar infarcts. Bilateral lens replacements. IMPRESSION: No acute intracranial process. Reviewed, dictated and finalized at location K.
[2022-02-28] MEDS: SODIUM CHLORIDE 0.9% IV 1,000 ML 1000 ML (19:05)
--- NOTE | 2022-02-28 20:07 | ED.FALL ---
HPI - Fall General Chief Complaint: Fall Stated Complaint: unwitnessed fall hit head Time Seen by Provider: 02/28/22 18:39 History of Present Illness HPI Narrative: Patient is an 86-year-old female presenting after a fall. Patient is a resident in a nursing facility and had an unwitnessed fall in the [facility] [place]. Patient's daughter reports that she has frequent falls and is currently undergoing physical therapy for this. Patient sustained a laceration to the back of her head. She complains that her head hurts. She also states that her right hip hurts. She denies neck pain. She denies vision changes, numbness, weakness, chest pain, shortness of breath, abdominal pain, nausea or vomiting. Related Data Home Medications Medication Instructions Recorded Confirmed fluticasone fur. 100 mcg-umeclid 1 inh inhalation DAILY 07/26/21 02/11/22 62.5 mcg-vilant 25 mcg inhalat.powder (Trelegy Ellipta) pantoprazole 40 mg tablet,delayed 40 mg PO BID 07/26/21 02/11/22 release pravastatin 20 mg tablet 20 mg PO HS 07/26/21 02/11/22 amlodipine 5 mg tablet 5 mg PO DAILY 07/27/21 02/11/22 celecoxib 100 mg capsule 100 mg PO BID 07/27/21 02/11/22 emollient combination no.72 1 ea topical BID 07/27/21 02/11/22 (Eucerin Intensive Repair lotion) loratadine 10 mg tablet 10 mg PO DAILY 07/27/21 02/11/22 memantine 5 mg tablet 5 mg PO BID 07/27/21 02/11/22 menthol 5 % topical patch (Icy Hot 1 patch topical DAILY 07/27/21 02/11/22 (menthol)) metoprolol succinate 100 mg 100 mg PO DAILY 07/27/21 02/11/22 tablet,extended release 24 hr multivitamin 1 tablet PO DAILY 07/27/21 02/11/22 mupirocin 2 % topical ointment 1 applic topical BID 07/27/21 02/11/22 aspirin 81 mg tablet,delayed 81 mg PO DAILY 12/30/21 02/11/22 release diclofenac sodium 1 % topical gel 1 ea topical QID 12/30/21 02/11/22 divalproex 125 mg capsule,delayed 250 mg PO BID 12/30/21 02/11/22 release sprinkle eszopiclone 2 mg tablet 2 mg PO HS 12/30/21 02/11/22 Allergies Allergy/AdvReac Type Severity Reaction Status Date / Time HI Inhibitors Allergy Unknown Verified 02/28/22 19:02 atorvastatin Allergy Unknown Verified 02/28/22 19:02 famotidine Allergy Unknown Verified 02/28/22 19:02 ibuprofen Allergy Unknown Verified 02/28/22 19:02 methylprednisolone Allergy Unknown Verified 02/28/22 19:02 rosuvastatin Allergy Unknown Verified 02/28/22 19:02 Review of Systems Review of Systems: All systems reviewed & are unremarkable except as noted in HPI and below PMFSH Past Medical History Medical History Alzheimer's dementia COPD (chronic obstructive pulmonary disease) E coli infection Fractured tarsal bone GERD (gastroesophageal reflux disease) Hypercholesterolemia Hypertension Left wrist fracture Neck fracture Pelvis fracture Peripheral vascular disease Polio Urinary bladder cancer 2017 Surgical History Surgical History H/O cardiac catheterization H/O cystoscopy S/P peripheral artery angioplasty with stent placement S/P rotator cuff repair Family History Family History Father Heart disease Mother Heart disease Social History Social History Social History: The patient resides at [facility]. She is and has 2 children. 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 She is a former smoker. She has 2 children and the daughter is the durable power commercial real estate attorney for healthcare. Code status DNR Years smoked: 35 Smoking status: Former smoker Tobacco type: cigarettes Alcohol intake: never Substance use: never Lack of Transportation: No Lack of Food: Never True Current Housing: I Have Housing Concerned About Future Housing: No Difficulty
[2022-02-28] MEDS: TETANUS,DIPHTHERIA,AC PERTUSSIS ADULT (0.5 ML) BOOSTRIX IM (20:58)
[2022-02-28] MEDS: ACETAMINOPHEN 500 MG TABLET 1000 MG PO (20:58)
--- NOTE | 2022-02-28 21:44 | PC.NURSE ---
Spoke with Angela at [facility] for report. Daughter is to drive patient back to facility
== END 2022-02-28 21:46 ==
PROVIDERS: Emergency Provider Emergency Medicine; PCP Nurse Practitioner Family
DX: S01.01XA Laceration without foreign body of scalp, initial encounter (principal); Z23 Encounter for immunization; M25.551 Pain in right hip; G30.9 Alzheimer's disease, unspecified; F02.80 Dementia in other diseases classified elsewhere, unspecified severity, without behavioral disturbance, psychotic disturbance, mood disturbance, and anxiety; J44.9 Chronic obstructive pulmonary disease, unspecified; I10 Essential (primary) hypertension; E78.00 Pure hypercholesterolemia, unspecified; I73.9 Peripheral vascular disease, unspecified; K21.9 Gastro-esophageal reflux disease without esophagitis; Z66 Do not resuscitate; Z95.5 Presence of coronary angioplasty implant and graft; Z86.12 Personal history of poliomyelitis; Z85.51 Personal history of malignant neoplasm of bladder; Z87.891 Personal history of nicotine dependence; W19.XXXA Unspecified fall, initial encounter
CPT/HCPCS: 12001; 70450; 72125; 73502; 90471; 90715; 99284; A9270; J7030

== ENCOUNTER 2022-06-11 16:36 | Emergency (ER) | payer MEDICARE, SELFPAY ==
[2022-06-11] VITALS (25 sets, daily range): BP systolic 104–142; BP diastolic 55–86; PULSE 54–84; RESP 13–22; TEMP 36.4; O2SAT 95–100
--- NOTE | ~2022-06-11 | CT_ITS ---
EXAMINATION: CT abdomen pelvis w con DATE: 06/11/2022 18:45 INDICATION: Periumbilical tenderness. TECHNIQUE: Computed tomography (CT) of the abdomen and pelvis was performed without intravenous contr ast. The dose-length product was 226.45 mGy-cm. Automated exposure control and iterative reconstructi on technique were employed. COMPARISON: None. FINDINGS: There is emphysema. There is a 12 mm right lower lobe nodule which is adjacent to a right 1 0th rib fracture. There is severe lower thoracic and lumbar spondylosis. Heart size normal. There are multiple small hypodensities of the liver, too small to characterize. Spleen is enlarged. Small hiat al hernia. There is pancreatic atrophy. The adrenal glands are unremarkable. There are low-density le sions in both kidneys, most likely benign cysts. Nonobstructive bowel gas pattern. Bladder is unremar kable. Colonic diverticulosis without evidence for diverticulitis. There is a small hyperdense 1 cm b ladder wall mass along the left lateral wall, suspicious for transitional cell carcinoma. Nonobstruct ramone bowel gas pattern. No significant hernia is identified. Nonobstructive bowel pattern. Colonic div erticulosis without evidence for diverticulitis. Moderate atherosclerosis without aneurysm. No lympha denopathy. IMPRESSION: 1. Bladder wall mass along the left lateral margin measuring 1 cm, suspicious for transitional cell c arcinoma. 2: Right lower lobe nodule measuring 12 mm which may represent focal atelectasis/scarring, contusion from adjacent 10th rib fracture or pulmonary nodule. Recommend follow-up low dose CT chest in 3 month s. Reviewed, dictated and finalized at location A. RETE PANEL INSTALLER IMPRESSION: 1. Bladder wall mass along the left lateral margin measuring 1 cm, suspicious f or transitional cell carcinoma. 2: Right lower lobe nodule measuring 12 mm which may represent focal atelectasi s/scarring, contusion from adjacent 10th rib fracture or pulmonary nodule. Juanito mmend follow-up low dose CT chest in 3 months.
--- NOTE | ~2022-06-11 | XR_ITS ---
XR chest 1V portable 06/11/2022 19:44 Indication: Dyspnea Procedure: AP portable chest Comparison: 08/01/2021 Findings: Chronic bibasilar atelectasis/scarring. No acute focal pneumonia, edema, pleural effusion o r pneumothorax. Stable cardiomediastinal silhouette. Impression: 1: No acute cardiopulmonary disease. Reviewed, dictated and finalized at location A. PRESIDENT PROCESS Impression: 1: No acute cardiopulmonary disease.
--- NOTE | ~2022-06-11 | CT_ITS ---
EXAMINATION: CT brain wo con DATE: 06/11/2022 18:44 INDICATION: Altered mental status. TECHNIQUE: Computed tomography (CT) of the head was performed without intravenous contrast. The dose- length product was 605.33 mGy-cm. Automated exposure control and iterative reconstruction technique w ere employed. COMPARISON: CT dated 02/28/2022 FINDINGS: Generalized atrophy. There are scattered moderate periventricular and subcortical white mat ter changes, most likely related to small vessel ischemic disease (microangiopathy). No ventriculomeg madeline or midline shift. Basilar cisterns are patent. No acute intracranial hemorrhage, infarction, mass or mass effect. IMPRESSION: 1. No acute intracranial abnormality. 2: Chronic age-related findings. Reviewed, dictated and finalized at location A. CHIPPER
--- NOTE | 2022-06-11 17:37 | ED.ABDPAIN ---
HPI - Abdominal Pain General Chief Complaint: Abdominal Pain <David Crockett PA-C - Last Filed: 06/12/22 02:49> Stated Complaint: Abd Pain <David Crockett PA-C - Last Filed: 06/12/22 02:49> Time Seen by Provider: 06/11/22 16:56 <David Crockett PA-C - Last Filed: 06/12/22 02:49> Source: patient and family <David Crockett PA-C - Last Filed: 06/12/22 02:49> Mode of arrival: EMS <MARIA ELENA Stack Last Filed: 06/12/22 02:49> Limitations: altered mental status <David Crockett PA-C - Last Filed: 06/12/22 02:49> History of Present Illness HPI narrative: History is somewhat limited due to patient's AMS and baseline mental status. She presents with her daughter who is giving most of the history. This is a 87-year-old female with past medical history of COPD, Alzheimer's who presents via EMS from her memory care facility with chief complaint of abdominal pain. According to EMS, they were called in for the abdominal pain, patient had a large bowel movement on the way to the ER and now states her abdominal pain is resolved. Patient is an unreliable historian as most answers to questions are word salad which is baseline for her. Her daughter is here and states that she has been with patient a lot and has noticed back pain at the [facility] and has some concerns for shortness of breath. Denies any increased oxygen demands, wears 2 L as needed at home. Daughter is concerned for COVID specifically as she has had COVID in the last 10 days. Daughter also states that she is confused above baseline. States she normally has word salad, but feels the patient is behaving abnormally (more agitated) and is more confused. Denies fevers. Past abdominal surgical history of appendectomy. Sats are 96% on room air <David Crockett PA-C - Last Filed: 06/12/22 02:49> Related Data Home Medications: Home Medications Medication Instructions Recorded Confirmed fluticasone fur. 100 mcg-umeclid 1 inh inhalation DAILY 07/26/21 02/11/22 62.5 mcg-vilant 25 mcg inhalat.powder (Trelegy Ellipta) pantoprazole 40 mg tablet,delayed 40 mg PO BID 07/26/21 02/11/22 release pravastatin 20 mg tablet 20 mg PO HS 07/26/21 02/11/22 amlodipine 5 mg tablet 5 mg PO DAILY 07/27/21 02/11/22 celecoxib 100 mg capsule 100 mg PO BID 07/27/21 02/11/22 emollient combination no.72 1 ea topical BID 07/27/21 02/11/22 (Eucerin Intensive Repair lotion) loratadine 10 mg tablet 10 mg PO DAILY 07/27/21 02/11/22 memantine 5 mg tablet 5 mg PO BID 07/27/21 02/11/22 menthol 5 % topical patch (Icy Hot 1 patch topical DAILY 07/27/21 02/11/22 (menthol)) metoprolol succinate 100 mg 100 mg PO DAILY 07/27/21 02/11/22 tablet,extended release 24 hr multivitamin 1 tablet PO DAILY 07/27/21 02/11/22 mupirocin 2 % topical ointment 1 applic topical BID 07/27/21 02/11/22 aspirin 81 mg tablet,delayed 81 mg PO DAILY 12/30/21 02/11/22 release diclofenac sodium 1 % topical gel 1 ea topical QID 12/30/21 02/11/22 divalproex 125 mg capsule,delayed 250 mg PO BID 12/30/21 02/11/22 release sprinkle eszopiclone 2 mg tablet 2 mg PO HS 12/30/21 02/11/22 <David Crockett PA-C - Last Filed: 06/12/22 02:49> Allergies/Adverse Reactions: Allergies Allergy/AdvReac Type Severity Reaction Status Date / Time HI Inhibitors Allergy Unknown Verified 02/28/22 19:02 atorvastatin Allergy Unknown Verified 02/28/22 19:02 famotidine Allergy Unknown Verified 02/28/22 19:02 ibuprofen Allergy Unknown Verified 02/28/22 19:02 methylprednisolone Allergy Unknown Verified 02/28/22 19:02 rosuvastatin Allergy Unknown Verified 02/28/22 19:02 <David Crockett PA-C - Last Filed: 06/12/22 02:49> Review of Systems Review of Systems: ROS unobtainable: Yes unobtainable due to mental status <David Crockett PA-C - Last Filed: 06/12/22 02:49> [facility] Past Medical History Medical History: Medical History
--- NOTE | 2022-06-11 17:44 | ECG_ITS ---
Measurements Intervals [place] Rate: 69 P: 87 PA: 198 QRS: 1 QRSD: 74 T: 75 QT: 407 QTc: 437 Interpretive Statements SINUS RHYTHM SEPTAL MYOCARDIAL INFARCTION , OF INDETERMINATE AGE [40+ ms Q WAVE IN V1/V2] COMPARED TO ECG 01/01/2022 14:47:17 NO SIGNIFICANT CHANGES Electronically Signed On 06-11-2022 20:14:56 ROOF [employer]USS MACHINE TENDER by Rosi Little M.D.
[2022-06-11 18:08] LABS: Basophils Percent Auto 0.6 % (0.2-1.2); Eosinophils Absolute Auto 0.1 K/mm3 (0-0.3); Eosinophils Percent Auto 2.5 % (0-4.4); Hematocrit 38.5 % (37.0-47.0); Lymphocytes Percent Auto 24.9 % (18.3-44.2); Mean Corpuscular HGB Conc 31.2 g/dl (32-36); Mean Corpuscular Hemoglobin 26.6 pg (26-34); Mean Corpuscular Volume 85.4 fl (80-100); Monocytes Absolute Auto 0.3 K/mm3 (0.1-0.6); Platelet Count Result 103 k/mm3 (150-375); Red Blood Count 4.51 M/mm3 (4.2-5.4); Red Cell Distribution Width 15.8 % (11.5-14.5); White Blood Count 3.2 K/mm3 (4.5-10.0)
[2022-06-11 18:17] LABS: Alanine Aminotransferase 14 U/L (6-35); Albumin Level 3.9 g/dL (3.5-5.1); Alkaline Phosphatase 91 U/L (38-126); Anion Gap 4 mmol/L (8-16); Aspartate Amino Transferase 28 U/L (14-36); Bilirubin,Total 0.5 mg/dL (0.2-1.3); Blood Urea Nitrogen 29 mg/dL (7-17); Calcium 8.3 mg/dL (8.4-10.2); Carbon Dioxide 26 mmol/L (22-30); Chloride 107 mmol/L (98-107); Estimated CRCL calculation 27 ml/min; Estimated Glomerular Filt Rate 60; Glucose 93 mg/dL (65-110); Lipase 239 U/L (23-300); Potassium 5.3 mmol/L (3.4-5.0); Sodium 137 mmol/L (137-145)
[2022-06-11] MEDS: SODIUM CHLORIDE 0.9% IV 1,000 ML 999 ML IV CONT (18:17)
[2022-06-11 18:44] LABS: Influenza A QL RT-PCR Negative (Negative); Influenza B QL RT-PCR Negative (Negative); RSV RNA, RT-PCR Negative (Negative); SARS-CoV-2 RNA PCR Negative
[2022-06-11 19:14] LABS: Appearance Urine Slightly Cloudy (Clear); Bilirubin Urine Negative (Negative); Blood Urine Negative (Negative); Color Urine Yellow (Yellow); Glucose Urine UA Negative (Negative); Ketones Urine Negative (Negative); Leukocyte Esterase Ur Negative LEU/UL (Negative); Nitrate Urine Negative (Negative); Protein Urine Negative (Negative); Specific Grav Ur 1.015 (1.001-1.035)
[2022-06-11 19:19] LABS: Bacteria Urine Trace /hpf; Mucus Urine Rare /lpf; RBC Urine 0-2 /hpf (0-2); Squamous Epithelial Cell Urine Rare /hpf (Few)
[2022-06-11 19:23] LABS: Add Urine Microscopic? YES
--- NOTE | 2022-06-11 22:01 | PC.NURSE ---
pt irritable when monitoring equipment is on, took off for pt comfort pt in room with daughter.
[2022-06-11 22:09] LABS: Magnesium 2.3 mg/dL (1.6-2.3); Phosphorus 3.7 mg/dL (2.5-4.5)
== END 2022-06-11 23:04 ==
PROVIDERS: Emergency Provider Physician Assistant; PCP Nurse Practitioner Family
DX: G30.9 Alzheimer's disease, unspecified (principal); F02.80 Dementia in other diseases classified elsewhere, unspecified severity, without behavioral disturbance, psychotic disturbance, mood disturbance, and anxiety; N32.89 Other specified disorders of bladder; R91.1 Solitary pulmonary nodule; Z20.822 Contact with and (suspected) exposure to COVID-19; J44.9 Chronic obstructive pulmonary disease, unspecified; E78.00 Pure hypercholesterolemia, unspecified; I10 Essential (primary) hypertension; I73.9 Peripheral vascular disease, unspecified; K21.9 Gastro-esophageal reflux disease without esophagitis; Z86.12 Personal history of poliomyelitis; Z95.5 Presence of coronary angioplasty implant and graft; Z85.51 Personal history of malignant neoplasm of bladder; Z87.891 Personal history of nicotine dependence; Z79.82 Long term (current) use of aspirin
CPT/HCPCS: 36415; 70450; 71045; 74177; 80053; 81001; 83690; 83735; 84100; 85025; 87040; 87637; 93005; 96365; 96366; 99284; J0131; J7030; Q9967

== ENCOUNTER 2022-07-09 14:11 | Emergency (ER) | payer MEDICARE, SELFPAY ==
--- NOTE | ~2022-07-09 | XR_ITS ---
EXAMINATION: XR chest 1V portable DATE: 07/09/2022 15:12 INDICATION: Altered mental status. Hypoxia. TECHNIQUE: A single frontal view of the chest was obtained. COMPARISON: Chest single view 06/11/2022, CT abdomen and pelvis 06/11/2022 FINDINGS: There is mild atelectasis at the lung bases. No pleural effusion or pneumothorax. The heart size is normal. There are suture anchors in left humeral head. IMPRESSION: 1. Mild atelectasis at the lung bases. Reviewed, dictated and finalized at location A.
--- NOTE | 2022-07-09 14:19 | ECG_ITS ---
Measurements Intervals [place] Rate: 61 P: 68 MD: 190 QRS: -20 QRSD: 72 T: 69 QT: 407 QTc: 412 Interpretive Statements SINUS RHYTHM CANNOT RULE OUT SEPTAL INFARCT, AGE INDETERMINATE BASELINE ARTIFACT- I, II, III, AVR, AVL, AVF, V1-V2 ABNORMAL ECG COMPARED TO ECG 06/11/2022 19:33:51 NO SIGNIFICANT CHANGES Electronically Signed On 07-09-2022 14:57:20 CDT by Julio Cesar Batista D.O.
[2022-07-09 14:38] VITALS: BP 138/90; PULSE 57; RESP 14; TEMP 36.7; O2SAT 96
[2022-07-09 14:47] LABS: Basophils Percent Auto 0.2 % (0.2-1.2); Hematocrit 39.4 % (37.0-47.0); Hemoglobin 12.5 g/dL (12.0-15.0); Immature Granulocyte Absolute 0.03 K/mm3 (0.00-0.031); Immature Granulocyte Percent A 0.5 % (0-0.5); Lymphocytes Absolute Auto 0.38 K/mm3 (0.9-3.2); Lymphocytes Percent Auto 6.9 % (18.3-44.2); Mean Corpuscular HGB Conc 31.7 g/dl (32-36); Mean Corpuscular Hemoglobin 26.1 pg (26-34); Mean Corpuscular Volume 82.3 fl (80-100); Mean Platelet Volume 10.9 fl (7.4-10.4); Monocytes Absolute Auto 0.1 K/mm3 (0.1-0.6); Monocytes Percent Auto 2.2 % (2.6-8.5); Neutrophils Percent Auto 90.2 % (45.5-73.1); Platelet Count Result 155 k/mm3 (150-375); Red Blood Count 4.79 M/mm3 (4.2-5.4); Red Cell Distribution Width 15.2 % (11.5-14.5); White Blood Count 5.5 K/mm3 (4.5-10.0)
[2022-07-09 14:47] LABS: Alveolar/Arterial O2 Gradient 43.8 mmHg; Base Excess ABG -1.4 mEq/l (+/-2.0); Carboxyhemoglobin 0.7 % THb (0-2.0); Fractional Inspired Oxygen 21 %; HCO3 ABG 21.9 mEq/l (22.0-26.0); Methemoglobin ABG 0.1 %THb (0-1.5); Oxygen Saturation ABG 94.1 % (95.0-100.0); Oxyhemoglobin 92.4 % THb (90.0-100.0); PCO2 ABG 32.9 mmHg (35.0-45.0); PO2 ABG 66.5 mmHg (80.0-100.0); PO2 FiO2 Ratio Arterial Blood 3.17 %; Reduced Hemoglobin 6.8 %THb (0-5.0); Total Hemoglobin 13.1 g/dL (12.0-18.0); pH ABG 7.442 (7.350-7.450)
[2022-07-09 14:48] LABS: Device ROOM AIR; Modified Allen's Test Pass; Site Drawn RIGHT RADIAL
[2022-07-09 15:02] LABS: Partial Thromboplastin Time 23.5 SECONDS (22.3-36.8); Prothrombin Time 12.9 Seconds (11.1-14.7)
[2022-07-09 15:26] LABS: NT Pro B Type Natriuretic Pept 1060 pg/mL (19.9-100); Troponin I < 0.012 ng/mL (0.000-0.034)
[2022-07-09 15:29] LABS: Alanine Aminotransferase 17 U/L (6-35); Albumin Level 4.1 g/dL (3.5-5.1); Alkaline Phosphatase 82 U/L (38-126); Anion Gap 4 mmol/L (8-16); Aspartate Amino Transferase 30 U/L (14-36); Bilirubin,Total 0.5 mg/dL (0.2-1.3); Blood Urea Nitrogen 22 mg/dL (7-17); Calcium 8.6 mg/dL (8.4-10.2); Carbon Dioxide 27 mmol/L (22-30); Chloride 104 mmol/L (98-107); Estimated CRCL calculation 32 ml/min; Estimated Glomerular Filt Rate > 60; Glucose 102 mg/dL (65-110); Potassium 5.2 mmol/L (3.4-5.0); Sodium 135 mmol/L (137-145)
--- NOTE | 2022-07-09 16:17 | ED.GENADULT ---
HPI - General Adult General Chief complaint: Recheck/Abnormal Lab/Rx Stated complaint: low 02 sats Time Seen by Provider: 07/09/22 14:17 History of Present Illness HPI narrative: Patient is an 87-year-old female who presents ER with concerns for low oxygen saturation. At the group home O2 sat was 88%. Patient was diagnosed with COVID last month. She has had chronic cough since then. Patient has expressive aphasia and dementia and cannot provide history. History obtained from patient's daughter who is at the bedside. Related Data Home Medications Medication Instructions Recorded Confirmed fluticasone fur. 100 mcg-umeclid 1 inh inhalation DAILY 07/26/21 02/11/22 62.5 mcg-vilant 25 mcg inhalat.powder (Trelegy Ellipta) pantoprazole 40 mg tablet,delayed 40 mg PO BID 07/26/21 02/11/22 release pravastatin 20 mg tablet 20 mg PO HS 07/26/21 02/11/22 amlodipine 5 mg tablet 5 mg PO DAILY 07/27/21 02/11/22 celecoxib 100 mg capsule 100 mg PO BID 07/27/21 02/11/22 emollient combination no.72 1 ea topical BID 07/27/21 02/11/22 (Eucerin Intensive Repair lotion) loratadine 10 mg tablet 10 mg PO DAILY 07/27/21 02/11/22 memantine 5 mg tablet 5 mg PO BID 07/27/21 02/11/22 menthol 5 % topical patch (Icy Hot 1 patch topical DAILY 07/27/21 02/11/22 (menthol)) metoprolol succinate 100 mg 100 mg PO DAILY 07/27/21 02/11/22 tablet,extended release 24 hr multivitamin 1 tablet PO DAILY 07/27/21 02/11/22 mupirocin 2 % topical ointment 1 applic topical BID 07/27/21 02/11/22 aspirin 81 mg tablet,delayed 81 mg PO DAILY 12/30/21 02/11/22 release diclofenac sodium 1 % topical gel 1 ea topical QID 12/30/21 02/11/22 divalproex 125 mg capsule,delayed 250 mg PO BID 12/30/21 02/11/22 release sprinkle eszopiclone 2 mg tablet 2 mg PO HS 12/30/21 02/11/22 Allergies Allergy/AdvReac Type Severity Reaction Status Date / Time HI Inhibitors Allergy Unknown Verified 02/28/22 19:02 atorvastatin Allergy Unknown Verified 02/28/22 19:02 famotidine Allergy Unknown Verified 02/28/22 19:02 ibuprofen Allergy Unknown Verified 02/28/22 19:02 methylprednisolone Allergy Unknown Verified 02/28/22 19:02 rosuvastatin Allergy Unknown Verified 02/28/22 19:02 Review of Systems Review of Systems: ROS unobtainable: Yes unobtainable due to mental status [facility] Past Medical History Medical History Alzheimer's dementia COPD (chronic obstructive pulmonary disease) E coli infection Fractured tarsal bone GERD (gastroesophageal reflux disease) Hypercholesterolemia Hypertension Left wrist fracture Neck fracture Pelvis fracture Peripheral vascular disease Polio Urinary bladder cancer 2017 Surgical History Surgical History H/O cardiac catheterization H/O cystoscopy S/P peripheral artery angioplasty with stent placement S/P rotator cuff repair Family History Family History Father Heart disease Mother Heart disease Social History Social History Social History: The patient resides at [facility]. She is and has 2 children. 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 She is a former smoker. She has 2 children and the daughter is the durable power litigation attorney for healthcare. Code status DNR Years smoked: 35 Smoking status: Former smoker Tobacco type: cigarettes Alcohol intake: never Substance use: never Lack of Transportation: No Lack of Food: Never True Current Housing: I Have Housing Concerned About Future Housing: No Difficulty Paying Gas/Electric Bills: No Difficulty Paying for Meds: No Currently Unemployed: No Education: High School Diploma/GED Spiritual care concerns: Yes (Buddhism) Exam Narrati
[2022-07-09] MEDS: SODIUM CHLORIDE 0.9% IV 500 ML 999 ML IV CONT (16:29)
[2022-07-09 16:31] VITALS: BP 151/74; PULSE 59; RESP 18; O2SAT 97
== END 2022-07-09 18:07 | disposition home or self-care (01) ==
PROVIDERS: Emergency Provider Emergency Medicine; PCP Nurse Practitioner Family
DX: R05.9 Cough, unspecified (principal); E87.5 Hyperkalemia; G30.9 Alzheimer's disease, unspecified; F02.80 Dementia in other diseases classified elsewhere, unspecified severity, without behavioral disturbance, psychotic disturbance, mood disturbance, and anxiety; J44.9 Chronic obstructive pulmonary disease, unspecified; E78.00 Pure hypercholesterolemia, unspecified; I10 Essential (primary) hypertension; I73.9 Peripheral vascular disease, unspecified; R47.01 Aphasia; K21.9 Gastro-esophageal reflux disease without esophagitis; Z95.5 Presence of coronary angioplasty implant and graft; Z85.51 Personal history of malignant neoplasm of bladder; Z86.16 Personal history of COVID-19; Z86.12 Personal history of poliomyelitis; Z87.891 Personal history of nicotine dependence; Z66 Do not resuscitate; Z79.82 Long term (current) use of aspirin; R94.31 Abnormal electrocardiogram [ECG] [EKG]
CPT/HCPCS: 36415; 36600; 71045; 80053; 82375; 82805; 83050; 83880; 84484; 85025; 85610; 85730; 93005; 96360; 96361; 99283; J7040

== ENCOUNTER 2022-07-13 10:14 | Inpatient (IN) | payer MEDICARE, SELFPAY ==
[2022-07-13] VITALS (11 sets, daily range): BP systolic 90–134; BP diastolic 60–79; PULSE 84–115; RESP 18–25; TEMP 36.2–36.5; O2SAT 89–99; BMI 20.4
--- NOTE | ~2022-07-13 | CT_ITS ---
EXAMINATION: CT brain wo con DATE: 07/13/2022 11:25 INDICATION: Altered mental state TECHNIQUE: Computed tomography (CT) of the head was performed without intravenous contrast. The mA wa s adjusted according to patient size. Iterative reconstruction technique was employed. Exam dose: 60 5.33 mGy-cm total exam DLP. No evidence COMPARISON: June 11, 2022 CT brain FINDINGS: Bilateral vertebral artery and carotid siphon internal carotid artery calcifications. There is nonspecific diminished attenuation of the cerebral white matter, likely due to chronic small vess el ischemic changes. No recent cerebrovascular accident. No midline shift or mass effect effect. No intracranial mass lesi on. There is prominent central and cortical cerebral and moderately prominent cerebellar volume loss. The ventricles are dilated, including temporal horns. No subdural or epidural hematoma is detected. No fracture or bone destruction of the cranial vault. Paranasal sinuses and mastoid air cells are normally developed and aerated. IMPRESSION: Cerebral and cerebellar volume loss Cerebral atherosclerosis and chronic small vessel ischemic changes of the cerebral white matter No acute intracranial finding Reviewed, dictated and finalized at [facility]. Reviewed, dictated and finalized at location [facility]. IMPRESSION: Cerebral and cerebellar volume loss Cerebral atherosclerosis and chronic small vessel ischemic changes of the cereb ral white matter No acute intracranial finding
--- NOTE | ~2022-07-13 | XR_ITS ---
XR chest 1V portable DATE: 07/13/2022 11:37 INDICATION: Dyspnea, hypoxia TECHNIQUE: Portable AP chest on 07/13/2022 1134 hours COMPARISON: 07/09/2022 portable AP chest at 1509 hours FINDINGS: Heart size is not optimally evaluated because of rotation of the patient and magnification associated with AP projection. There is aortic arch and descending thoracic aortic calcification. Mild atelectasis or infiltrate is suggested at the lung bases. The lungs otherwise appear clear. No p leural effusion or pulmonary vascular congestion or pneumothorax. An anchor device overlying left humeral head is noted. Osteopenia. IMPRESSION: Mild atelectasis or infiltrate at the lung bases Reviewed, dictated and finalized at location [facility].
--- NOTE | 2022-07-13 10:35 | ECG_ITS ---
Measurements Intervals [place] Rate: 92 P: 57 AL: 156 QRS: -35 QRSD: 68 T: 53 QT: 333 QTc: 413 Interpretive Statements SINUS RHYTHM LEFT AXIS DEVIATION ANTEROSEPTAL INFARCT, AGE INDETERMINATE BASELINE ARTIFACT- I, II, III, AVR, AVL, AVF ABNORMAL ECG COMPARED TO ECG 07/09/2022 14:27:00 LEFT-AXIS DEVIATION NOW PRESENT Electronically Signed On 07-13-2022 10:54:23 CDT by Julio Cesar Batista D.O.
--- NOTE | 2022-07-13 10:36 | ED.AMS ---
HPI - Altered Mental Status General Chief Complaint: Altered Mental Status Stated Complaint: altered mental status, sob Time Seen by Provider: 07/13/22 10:29 History of Present Illness HPI narrative: 87-year-old female with history of dementia and high blood pressure presenting from [facility] with increased confusion, she had been seen recently for cough and at that time had been quite talkative and alert, however today is somnolent, with productive cough. Related Data Home Medications Medication Instructions Recorded Confirmed fluticasone fur. 100 mcg-umeclid 1 inh inhalation DAILY 07/26/21 02/11/22 62.5 mcg-vilant 25 mcg inhalat.powder (Trelegy Ellipta) pantoprazole 40 mg tablet,delayed 40 mg PO BID 07/26/21 02/11/22 release pravastatin 20 mg tablet 20 mg PO HS 07/26/21 02/11/22 amlodipine 5 mg tablet 5 mg PO DAILY 07/27/21 02/11/22 celecoxib 100 mg capsule 100 mg PO BID 07/27/21 02/11/22 emollient combination no.72 1 ea topical BID 07/27/21 02/11/22 (Eucerin Intensive Repair lotion) loratadine 10 mg tablet 10 mg PO DAILY 07/27/21 02/11/22 memantine 5 mg tablet 5 mg PO BID 07/27/21 02/11/22 menthol 5 % topical patch (Icy Hot 1 patch topical DAILY 07/27/21 02/11/22 (menthol)) metoprolol succinate 100 mg 100 mg PO DAILY 07/27/21 02/11/22 tablet,extended release 24 hr multivitamin 1 tablet PO DAILY 07/27/21 02/11/22 mupirocin 2 % topical ointment 1 applic topical BID 07/27/21 02/11/22 aspirin 81 mg tablet,delayed 81 mg PO DAILY 12/30/21 02/11/22 release diclofenac sodium 1 % topical gel 1 ea topical QID 12/30/21 02/11/22 divalproex 125 mg capsule,delayed 250 mg PO BID 12/30/21 02/11/22 release sprinkle eszopiclone 2 mg tablet 2 mg PO HS 12/30/21 02/11/22 Allergies Allergy/AdvReac Type Severity Reaction Status Date / Time HI Inhibitors Allergy Unknown Verified 07/13/22 11:55 atorvastatin Allergy Unknown Verified 07/13/22 11:55 famotidine Allergy Unknown Verified 07/13/22 11:55 ibuprofen Allergy Unknown Verified 07/13/22 11:55 methylprednisolone Allergy Unknown Verified 07/13/22 11:55 rosuvastatin Allergy Unknown Verified 07/13/22 11:55 Review of Systems Review of Systems: ROS unobtainable: Yes unobtainable due to mental status PMFSH Past Medical History Medical History Alzheimer's dementia COPD (chronic obstructive pulmonary disease) E coli infection Fractured tarsal bone GERD (gastroesophageal reflux disease) Hypercholesterolemia Hypertension Left wrist fracture Neck fracture Pelvis fracture Peripheral vascular disease Polio Urinary bladder cancer 2016 Surgical History Surgical History H/O cardiac catheterization H/O cystoscopy S/P peripheral artery angioplasty with stent placement S/P rotator cuff repair Family History Family History Father Heart disease Mother Heart disease Social History Social History Social History: The patient resides [facility]. She is and has 2 children. 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 She is a former smoker. She has 2 children and the daughter is the durable power defense attorney for healthcare. Code status DNR Years smoked: 35 Smoking status: Former smoker Tobacco type: cigarettes Alcohol intake: never Substance use: never Lack of Transportation: No Lack of Food: Never True Current Housing: I Have Housing Concerned About Future Housing: No Difficulty Paying Gas/Electric Bills: No Difficulty Paying for Meds: No Currently Unemployed: No Education: High School Diploma/GED Spiritual care concerns: Yes (Hoahaoism) Exam Narrative: EXAMINATION OF ORGAN SYSTEMS/BODY AREAS: Constitutional: Vital signs per nursing GENE
[2022-07-13] MEDS: SODIUM CHLORIDE 0.9% IV 500 ML 999 ML IV CONT (11:00)
[2022-07-13 11:10] LABS: Base Excess ABG -1.7 mEq/l (+/-2.0); Device NASAL CANNULA; Fractional Inspired Oxygen 36 %; HCO3 ABG 22.2 mEq/l (22.0-26.0); Oxygen Content ABG 16.5 %vol (16.0-22.0); Oxygen Saturation ABG 97.6 % (95.0-100.0); Oxyhemoglobin 95.5 % THb (90.0-100.0); PO2 ABG 98.1 mmHg (80.0-100.0); PO2 FiO2 Ratio Arterial Blood 2.72 %; Site Drawn RIGHT BRACHIAL; Total Hemoglobin 12.2 g/dL (12.0-18.0); pH ABG 7.421 (7.350-7.450)
[2022-07-13 11:32] LABS: Basophils Percent Auto 0.2 % (0.2-1.2); Eosinophils Percent Auto 0.6 % (0-4.4); Hematocrit 36.3 % (37.0-47.0); Hemoglobin 11.1 g/dL (12.0-15.0); Immature Granulocyte Absolute 0.02 K/mm3 (0.00-0.031); Immature Granulocyte Percent A 0.4 % (0-0.5); Lymphocytes Percent Auto 10.1 % (18.3-44.2); Mean Corpuscular HGB Conc 30.6 g/dl (32-36); Mean Corpuscular Hemoglobin 26.6 pg (26-34); Mean Corpuscular Volume 86.8 fl (80-100); Mean Platelet Volume 11.3 fl (7.4-10.4); Monocytes Absolute Auto 0.4 K/mm3 (0.1-0.6); Monocytes Percent Auto 7.4 % (2.6-8.5); Neutrophils Percent Auto 81.3 % (45.5-73.1); Platelet Count Result 95 k/mm3 (150-375); Red Blood Count 4.18 M/mm3 (4.2-5.4); Red Cell Distribution Width 16.2 % (11.5-14.5)
[2022-07-13 11:44] LABS: Alanine Aminotransferase 13 U/L (6-35); Albumin Level 2.7 g/dL (3.5-5.1); Alkaline Phosphatase 66 U/L (38-126); Anion Gap 1 mmol/L (8-16); Aspartate Amino Transferase 16 U/L (14-36); Bilirubin,Total 0.6 mg/dL (0.2-1.3); Blood Urea Nitrogen 25 mg/dL (7-17); Calcium 6.4 mg/dL (8.4-10.2); Carbon Dioxide 25 mmol/L (22-30); Chloride 113 mmol/L (98-107); Estimated CRCL calculation 38 ml/min; Estimated Glomerular Filt Rate > 60; Glucose 87 mg/dL (65-110); Sodium 139 mmol/L (137-145)
[2022-07-13 11:55] LABS: Glucose Point of Care 91 mg/dl (65-105)
[2022-07-13 12:07] LABS: Troponin I 0.049 ng/mL (0.000-0.034)
[2022-07-13 12:08] LABS: Appearance Urine Clear (Clear); Bacteria Urine None Seen /hpf; Bilirubin Urine Negative (Negative); Blood Urine Negative (Negative); Color Urine Yellow (Yellow); Glucose Urine UA Negative (Negative); Ketones Urine Negative (Negative); Leukocyte Esterase Ur Trace LEU/UL (Negative); Nitrate Urine Negative (Negative); Non Pathogenic Casts 0-2; Protein Urine 1+ mg/dL (Negative); RBC Urine 0-2 /hpf (0-2); Specific Grav Ur 1.023 (1.001-1.035); Squamous Epithelial Cell Urine Few /hpf (Few); Urobilinogen Urine 0.2 mg/dL (<2.0); WBC Clumps Urine Present /HPF; pH Urine 5.5 (5.0-9.0)
[2022-07-13] MEDS: LACTATED RINGERS 1,000 ML 999 ML IV CONT (12:11)
[2022-07-13 12:14] LABS: Thyroid Stimulating Hormone 0.804 uIU/mL (0.465-4.680)
[2022-07-13 12:18] LABS: Add Urine Microscopic? YES
[2022-07-13] MEDS: POTASSIUM CHLORIDE INJ 40 MEQ in SODIUM CHLORIDE 0.9% IV 500 ML 130 MEQ IVPB (12:57)
--- NOTE | 2022-07-13 13:15 | PM.IMHP ---
H&P: HPI History of Present Illness Date/Time: 07/13/22 13:15 Chief Complaint: Altered mental status Narrative: This is a 87-year-old female patient who [facility]. She has a history of Alzheimer's dementia and comes in with increased confusion. She was recently seen for cough on 07/09/2022. The patient was diagnosed with COVID last month. She has had a chronic cough since then. The patient has expressive aphasia and the daughters at the bedside. The patient resides at [facility]. Today the patient came in with increased confusion. It she is somewhat somnolent and continues to have a product of cough. Her white count is normal. H&H is 11.1 and 36.3. Potassium is low at 3.0. Her troponin was 0.049 and 0.050. She had trace leukocyte esterase and 6-10 wbc's. Chest x-ray was read as mild atelectasis or infiltrate at the lung bases. Head CT was read asCerebral and cerebellar volume loss Cerebral atherosclerosis and chronic small vessel ischemic changes of the cerebral white matter No acute intracranial finding The patient had potassium replaced, lactated Ringer's, azithromycin Rocephin. The patient is being admitted to inpatient status on the date of service of 07/13/2022. Review of Systems Review of Systems: All systems reviewed & are unremarkable except as noted in HPI and below Constitutional: Constitutional: Reports as per HPI and Reports no additional constitutional complaints Eyes: Eyes: Reports as per HPI and Reports no additional eye complaints ENT: Reports system reviewed and no additional complaints, except as documented and Reports Normal hearing present Cardiovascular: Cardiovascular: Reports no additional cardiovascular complaints Respiratory: Respiratory: Reports no additional respiratory complaints and Reports no additional respiratory complaints Gastrointestinal: Gastrointestinal: Reports as per HPI and Reports no additional gastrointestinal complaints Musculoskeletal: Musculoskeletal: Reports no additional musculoskeletal complaints Integumentary/Breasts: Skin/Breast: Reports system reviewed and no additional complaints, except as docu and Reports as per HPI Neurologic: Reports system reviewed and no additional complaints, except as documented, Reports as per HPI and Reports Normal hearing present Psychiatric: Psychiatric: Reports no additional psychiatric complaints and Reports as per HPI Endocrine: Endocrine: Reports no additional endocrine complaints Hematologic/Lymphatic: Hematologic/Lymphatic: Reports no additional hematologic/lymphatic complaints Allergic/Immunologic: Allergic/Immunologic: Reports no additional allergic/immunologic complaints [facility] Past Medical History Medical History Alzheimer's dementia COPD (chronic obstructive pulmonary disease) E coli infection Fractured tarsal bone GERD (gastroesophageal reflux disease) Hypercholesterolemia Hypertension Left wrist fracture Neck fracture Pelvis fracture Peripheral vascular disease Polio Urinary bladder cancer 2017 Surgical History Surgical History H/O cardiac catheterization H/O cystoscopy S/P peripheral artery angioplasty with stent placement S/P rotator cuff repair Family History Family History Father Heart disease Mother Heart disease Social History Social History (Updated 07/13/22 @ 17:54 by Soraya Pascual NP) Social History: The patient resides at [facility]. She is and has 2 children. 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 She is a former smoker. The daughter is the durable power sports attorney for healthcare. Code status DNR Smoking packs per day: 2 Smoking cigarettes per day: 40.0 Years smoked: 50 Smoking pack-years: 1
--- NOTE | 2022-07-13 13:55 | PC.NURSE ---
Family asking about hospice. Negrita from care coordination will be in to speak with her.
--- NOTE | 2022-07-13 14:53 | ADMGEN ---
This patient, Bekah Kitchen, was admitted to IMU Room 205-01 at 1405. Patient/family oriented to hospital policies and general routines including ID bracelet, bed and alarms, visiting hours, pain management, procedures, bathroom and other care routines, personal items, smoking policy, room service/diet, and visiting hours. Information on how to activate the Rapid Response Team has been discussed. Patient/Family are encouraged to report perceived risks to care and to ask questions if they do not understand what they are told or what they should do.
--- NOTE | 2022-07-13 17:16 | PCCCNOTE ---
Patient's daughter had requested care coordination consult in ED, upon arrival to ED room 6 patient was being moved to admission room 205. Time provided for patient to get admitted and settled. Met w/ patient and daughter Caroline in room 205. Patient has dementia, discussion with daughter Caroline. Caroline has been thinking about hospice for her mom and had discussed at a previous admission but was not ready to move forward. Patient resides at [facility] and Caroline has spoken with them briefly about hospice and to her understanding they work with all of the hospice agencies but some are easier to work with than others. She did know any specific names. Educated about hospice, and provided a list of hospice agencies. She has heard of [facility] [place] and is possible leaning that way. Plan at this time is that Caroline will look up information on different hospice agencies, talk with doctor in the AM and will provide care coordination with a name of an agency to set up a meeting.
[2022-07-13 20:48] LABS: Glucose Point of Care 81 mg/dl (65-105)
[2022-07-13] MEDS: DIVALPROEX SODIUM SPRINKLE 125 MG CAP.DR PO (21:49)
[2022-07-13] MEDS: EUCERIN CREAM 120 GM JAR 1 APPLIC TOPICAL (21:49)
[2022-07-13] MEDS: MUPIROCIN 2% OINT 22 GM TUBE 1 APPLIC TOPICAL (21:49)
[2022-07-13] MEDS: PRAVASTATIN SODIUM 20 MG TABLET PO (21:49)
[2022-07-13] MEDS: DICLOFENAC SODIUM 1% 100 GM GEL (*BKC) 1 APPLIC TOPICAL (21:49)
[2022-07-13] MEDS: LORazepam INJ (*CRX) 2 MG/ML VIAL 0.5 MG IV PUSH (22:33)
[2022-07-13] MEDS: ZOLPIDEM TARTRATE (*CRX) 5 MG TABLET PO (23:02)
[2022-07-14] VITALS (22 sets, daily range): BP systolic 99–134; BP diastolic 51–85; PULSE 62–95; RESP 12–26; TEMP 36.2–37; O2SAT 90–97
[2022-07-14] MEDS: IPRATROPIUM BR 0.02% INH SOLN 0.5 MG/2.5 ML VIAL INHALATION ×4 (02:15→21:11)
[2022-07-14 05:09] LABS: Basophils Percent Auto 0.5 % (0.2-1.2); Eosinophils Absolute Auto 0.3 K/mm3 (0-0.3); Eosinophils Percent Auto 7.3 % (0-4.4); Hematocrit 34.3 % (37.0-47.0); Hemoglobin 10.7 g/dL (12.0-15.0); Immature Granulocyte Absolute 0.02 K/mm3 (0.00-0.031); Immature Granulocyte Percent A 0.5 % (0-0.5); Lymphocytes Absolute Auto 0.92 K/mm3 (0.9-3.2); Lymphocytes Percent Auto 21.7 % (18.3-44.2); Mean Corpuscular HGB Conc 31.2 g/dl (32-36); Mean Corpuscular Hemoglobin 27.1 pg (26-34); Mean Corpuscular Volume 86.8 fl (80-100); Mean Platelet Volume 11.6 fl (7.4-10.4); Monocytes Absolute Auto 0.4 K/mm3 (0.1-0.6); Monocytes Percent Auto 8.5 % (2.6-8.5); Neutrophils Absolute Auto 2.6 K/mm3 (1.3-6.7); Neutrophils Percent Auto 61.5 % (45.5-73.1); Platelet Count Result 102 k/mm3 (150-375); Red Blood Count 3.95 M/mm3 (4.2-5.4); Red Cell Distribution Width 15.8 % (11.5-14.5); White Blood Count 4.2 K/mm3 (4.5-10.0)
[2022-07-14 05:16] LABS: Lactic Acid Reflex 0.6 mmol/L (0.7-2.0)
[2022-07-14 05:18] LABS: Alanine Aminotransferase 11 U/L (6-35); Albumin Level 2.7 g/dL (3.5-5.1); Alkaline Phosphatase 67 U/L (38-126); Anion Gap -1 mmol/L (8-16); Aspartate Amino Transferase 17 U/L (14-36); Bilirubin,Total 0.5 mg/dL (0.2-1.3); Blood Urea Nitrogen 17 mg/dL (7-17); Calcium 7.6 mg/dL (8.4-10.2); Carbon Dioxide 28 mmol/L (22-30); Chloride 111 mmol/L (98-107); Estimated Glomerular Filt Rate > 60; Glucose 83 mg/dL (65-110); Magnesium 2.1 mg/dL (1.6-2.3); Potassium 3.6 mmol/L (3.4-5.0); Sodium 138 mmol/L (137-145)
[2022-07-14 06:19] LABS: Thyroid Stimulating Hormone Reflex 0.823 uIU/mL (0.465-4.68)
[2022-07-14] MEDS: DIVALPROEX SODIUM SPRINKLE 125 MG CAP.DR PO ×2 (09:05→20:04)
[2022-07-14] MEDS: PANTOPRAZOLE 40 MG TABLET PO ×2 (09:05→20:04)
[2022-07-14] MEDS: MULTIVITAMINS THERAPEUTIC TAB (*BKC) 1 TABLET PO (09:06)
[2022-07-14] MEDS: IRBESARTAN 150 MG TABLET PO (09:06)
[2022-07-14] MEDS: amLODIPine BESYLATE 5 MG TABLET PO (09:06)
[2022-07-14] MEDS: LORATADINE 10 MG TABLET PO (09:06)
[2022-07-14] MEDS: MEMANTINE 5 MG TABLET 10 MG PO ×2 (09:06→17:12)
[2022-07-14] MEDS: SACCHAROMYCES BOULARDII 250 MG CAPSULE PO (09:06)
[2022-07-14] MEDS: MUPIROCIN 2% OINT 22 GM TUBE 1 APPLIC TOPICAL ×2 (09:07→20:04)
[2022-07-14] MEDS: DICLOFENAC SODIUM 1% 100 GM GEL (*BKC) 1 APPLIC TOPICAL ×4 (09:07→20:04)
[2022-07-14] MEDS: CELECOXIB 100 MG CAPSULE PO ×2 (09:09→17:12)
[2022-07-14] MEDS: EUCERIN CREAM 120 GM JAR 1 APPLIC TOPICAL ×2 (09:10→20:05)
[2022-07-14] MEDS: METOPROLOL SUCCINATE EXT REL 100 MG TABCR PO (09:54)
--- NOTE | 2022-07-14 15:00 | PM.IMPN ---
Progress Note: A&P Assessment and Plan (1) Pneumonia: Code(s): J18.9 - Pneumonia, unspecified organism Status: Acute Assessment and Plan: Chest xray indicates atelectasis vs infiltrate at the lung base Continue azithromycin and ceftriaxone Continue Atrovent and albuterol Sputum culture ordered if able to collect Trend labs and vital signs Adjust therapy as indicated Apnea link (2) Alzheimer's dementia: Qualifiers: Alzheimer's disease onset: unspecified onset Dementia behavioral disturbance: with behavioral disturbance Qualified Code(s): G30.9 - Alzheimer's disease, unspecified; F02.81 - Dementia in other diseases classified elsewhere with behavioral disturbance Code(s): G30.9 - Alzheimer's disease, unspecified; F02.80 - Dementia in other diseases classified elsewhere, unspecified severity, without behavioral disturbance, psychotic disturbance, mood disturbance, and anxiety Status: Chronic Assessment and Plan: Chronic Continue home Namenda Seems stable at this time Head CT does not indicate any current or new changes Fall percautions (3) Hypertension: Qualifiers: Hypertension type: primary hypertension Qualified Code(s): I10 - Essential (primary) hypertension Code(s): I10 - Essential (primary) hypertension Status: Chronic Assessment and Plan: BP is 115/59 Continue amlodpine, irbesartan, metoprolol Continue to trend BP Adjust therapy as indicated (4) Chronic anemia: Code(s): D64.9 - Anemia, unspecified Status: Chronic Assessment and Plan: H/H stable at this time Currently 10.7/34.3 Continue to trend Anemia labs if H/H continues to trend down Transfuse if hgb <7.0 (5) COPD (chronic obstructive pulmonary disease): Code(s): J44.9 - Chronic obstructive pulmonary disease, unspecified Status: Acute Assessment and Plan: Chronic stable at this time No home medications (6) Elevated troponin: Code(s): R77.8 - Other specified abnormalities of plasma proteins Status: Acute Assessment and Plan: Trops are flat could be related to the PNA Check and BNP in the am Not relevant at this point. Plan Will give one dose of Seroquel for sleep tonight which should help with sleep and capturing hypoxia if noted Time Spent With Patient Time: 53 minutes Time with patient: Greater than 35 minutes Subjective Date/time seen: 07/14/22 15:00 Interval history: 07/14/22 15:00 Patient was lying in bed. she currently denies any chest pain, nausea, vomiting, diarrhea constipation. Her daughter was present and was very concerned that the patient has been incontinent lately. She also stated that the patient has been pretty confused. She stated that she has been walking okay however her oxygen keeps dropping down and stated that her oxygen got as low was 54% at the assisted living. She also stated that she was sick in May and now she is sick it again at this time. It was also brought to my attention that the patient's fingers will turn however it does go up to the wrist. It was also mentioned that the patient did have oxygen at 1 time however since the patient does have severe dementia she stopped wearing it. Currently she is wearing 2 L. there is also concern that the patient is incontinent which the patient is not usually incontinent. 07/13/22? 13:15 This is a 87-year-old female patient who comes from the [facility].? She has a history of Alzheimer's dementia and comes in with increased confusion.? She was recently seen for cough on 07/09/2022.? The patient was diagnosed with COVID last month.? She has had a chronic cough since then.? The patient has expressive aphasia and the daughters at the bedside.? The patient resides at [facility].
--- NOTE | 2022-07-14 15:00 | P.PNIM_ITS ---
Progress Note: A&P Assessment and Plan (1) Pneumonia: Code(s): J18.9 - Pneumonia, unspecified organism Status: Acute Assessment and Plan: * Chest xray indicates atelectasis vs infiltrate at the lung base * Continue azithromycin and ceftriaxone * Continue Atrovent and albuterol * Sputum culture ordered if able to collect * Trend labs and vital signs * Adjust therapy as indicated * Apnea link (2) Alzheimer's dementia: Qualifiers: Alzheimer's disease onset: unspecified onset Dementia behavioral disturbance: with behavioral disturbance Qualified Code(s): G30.9 - Alzheimer's disease, unspecified; F02.81 - Dementia in other diseases classified elsewhere with behavioral disturbance Code(s): G30.9 - Alzheimer's disease, unspecified; F02.80 - Dementia in other diseases classified elsewhere, unspecified severity, without behavioral disturbance, psychotic disturbance, mood disturbance, and anxiety Status: Chronic Assessment and Plan: * Chronic * Continue home Namenda * Seems stable at this time * Head CT does not indicate any current or new changes * Fall percautions (3) Hypertension: Qualifiers: Hypertension type: primary hypertension Qualified Code(s): I10 - Essential (primary) hypertension Code(s): I10 - Essential (primary) hypertension Status: Chronic Assessment and Plan: * BP is 115/59 * Continue amlodpine, irbesartan, metoprolol * Continue to trend BP * Adjust therapy as indicated (4) Chronic anemia: Code(s): D64.9 - Anemia, unspecified Status: Chronic Assessment and Plan: * H/H stable at this time * Currently 10.7/34.3 * Continue to trend * Anemia labs if H/H continues to trend down * Transfuse if hgb <7.0 (5) COPD (chronic obstructive pulmonary disease): Code(s): J44.9 - Chronic obstructive pulmonary disease, unspecified Status: Acute Assessment and Plan: * Chronic * stable at this time * No home medications (6) Elevated troponin: Code(s): R77.8 - Other specified abnormalities of plasma proteins Status: Acute Assessment and Plan: * Trops are flat * could be related to the PNA * Check and BNP in the am * Not relevant at this point. Plan Will give one dose of Seroquel for sleep tonight which should help with sleep and capturing hypoxia if noted Time Spent With Patient Time: 53 minutes Time with patient: Greater than 35 minutes Subjective Date/time seen: 07/14/22 15:00 Interval history: 07/14/22 15:00 Patient was lying in bed. she currently denies any chest pain, nausea, vomiting, diarrhea constipation. Her daughter was present and was very concerned that the patient has been incontinent lately. She also stated that the patient has been pretty confused. She stated that she has been walking okay however her oxygen keeps dropping down and stated that her oxygen got as low was 54% at the assisted living. She also stated that she was sick in May and now she is sick it again at this time. It was also brought to my attention that the patient's fingers will turn however it does go up to the wrist. It was also mentioned that the patient did have oxygen at 1 time however since the patient
[2022-07-14 18:04] LABS: NT Pro B Type Natriuretic Pept 844 pg/mL (19.9-100)
[2022-07-14] MEDS: ZOLPIDEM TARTRATE (*CRX) 5 MG TABLET PO (20:04)
[2022-07-14] MEDS: PRAVASTATIN SODIUM 20 MG TABLET PO (20:04)
[2022-07-14] MEDS: QUEtiapine FUMARATE 25 MG TABLET PO (22:05)
[2022-07-15] VITALS (11 sets, daily range): BP systolic 94–126; BP diastolic 38–90; PULSE 56–65; RESP 14–20; TEMP 36.1–36.8; O2SAT 87–94
[2022-07-15] MEDS: LORazepam INJ (*CRX) 2 MG/ML VIAL 0.5 MG IV PUSH ×2 (00:26→22:20)
[2022-07-15] MEDS: IPRATROPIUM BR 0.02% INH SOLN 0.5 MG/2.5 ML VIAL INHALATION ×2 (02:46→13:55)
[2022-07-15 05:08] LABS: Basophils Percent Auto 0.6 % (0.2-1.2); Eosinophils Absolute Auto 0.3 K/mm3 (0-0.3); Hematocrit 33.5 % (37.0-47.0); Hemoglobin 10.3 g/dL (12.0-15.0); Immature Granulocyte Absolute 0.01 K/mm3 (0.00-0.031); Immature Granulocyte Percent A 0.3 % (0-0.5); Lymphocytes Absolute Auto 0.94 K/mm3 (0.9-3.2); Lymphocytes Percent Auto 26.6 % (18.3-44.2); Mean Corpuscular HGB Conc 30.7 g/dl (32-36); Mean Corpuscular Hemoglobin 26.6 pg (26-34); Mean Corpuscular Volume 86.6 fl (80-100); Mean Platelet Volume 11.5 fl (7.4-10.4); Monocytes Absolute Auto 0.3 K/mm3 (0.1-0.6); Monocytes Percent Auto 7.3 % (2.6-8.5); Neutrophils Percent Auto 56.2 % (45.5-73.1); Platelet Count Result 108 k/mm3 (150-375); Red Blood Count 3.87 M/mm3 (4.2-5.4); Red Cell Distribution Width 15.5 % (11.5-14.5); White Blood Count 3.5 K/mm3 (4.5-10.0)
--- NOTE | 2022-07-15 05:08 | PCRCNOTE ---
Apnea link study was initiated and then stopped. Patient has dementia and bit off the Spo2 probe within an hour. Pt was very confused and restless. Daughter in room with patient also. Incomplete test.
[2022-07-15 05:16] LABS: Alanine Aminotransferase 12 U/L (6-35); Albumin Level 2.8 g/dL (3.5-5.1); Alkaline Phosphatase 64 U/L (38-126); Anion Gap 3 mmol/L (8-16); Aspartate Amino Transferase 17 U/L (14-36); Bilirubin,Total 0.5 mg/dL (0.2-1.3); Blood Urea Nitrogen 15 mg/dL (7-17); Calcium 7.8 mg/dL (8.4-10.2); Carbon Dioxide 26 mmol/L (22-30); Chloride 110 mmol/L (98-107); Estimated Glomerular Filt Rate > 60; Glucose 80 mg/dL (65-110); Magnesium 2.1 mg/dL (1.6-2.3); Potassium 3.7 mmol/L (3.4-5.0); Sodium 139 mmol/L (137-145)
--- NOTE | 2022-07-15 09:45 | PM.IMPN ---
Progress Note: A&P Assessment and Plan (1) Pneumonia: Code(s): J18.9 - Pneumonia, unspecified organism Status: Acute Assessment and Plan: Chest xray indicates atelectasis vs infiltrate at the lung base Azithromycin and ceftriaxone, changed to augmentin and azithromycin at this time Continue Atrovent and albuterol, changed to PRN as there is no active wheezing shortness of breath noted Sputum culture ordered if able to collect Trend labs and vital signs Adjust therapy as indicated Apnea link unable to be performed (2) Alzheimer's dementia: Qualifiers: Alzheimer's disease onset: unspecified onset Dementia behavioral disturbance: with behavioral disturbance Qualified Code(s): G30.9 - Alzheimer's disease, unspecified; F02.81 - Dementia in other diseases classified elsewhere with behavioral disturbance Code(s): G30.9 - Alzheimer's disease, unspecified; F02.80 - Dementia in other diseases classified elsewhere, unspecified severity, without behavioral disturbance, psychotic disturbance, mood disturbance, and anxiety Status: Chronic Assessment and Plan: Chronic, most likely end stage Continue home Namenda Seems stable at this time Head CT does not indicate any current or new changes Fall precautions (3) Hypertension: Qualifiers: Hypertension type: primary hypertension Qualified Code(s): I10 - Essential (primary) hypertension Code(s): I10 - Essential (primary) hypertension Status: Chronic Assessment and Plan: BP is 118/62 Continue amlodipine, irbesartan, metoprolol Continue to trend BP Adjust therapy as indicated (4) Chronic anemia: Code(s): D64.9 - Anemia, unspecified Status: Chronic Assessment and Plan: H/H stable at this time Currently 10.3/33.5 Continue to trend Anemia labs if H/H continues to trend down Transfuse if hgb <7.0 (5) COPD (chronic obstructive pulmonary disease): Code(s): J44.9 - Chronic obstructive pulmonary disease, unspecified Status: Acute Assessment and Plan: Chronic stable at this time No home medications Supplemental oxygen provided wean to maintain saturations >90% Neb treatments ordered (6) Elevated troponin: Code(s): R77.8 - Other specified abnormalities of plasma proteins Status: Acute Assessment and Plan: Trops are flat could be related to the PNA BNP 844 Not relevant at this point. (7) Urinary tract infection: Code(s): N39.0 - Urinary tract infection, site not specified Status: Acute Assessment and Plan: UA appeared infectious Urine culture came back with Enterococcus Changed to Vanco, sensitivities returned and augmentin started Trend urine output (8) Acute metabolic encephalopathy: Code(s): G93.41 - Metabolic encephalopathy Status: Acute Assessment and Plan: most likely related to infectious process with pneumonia and UTI end-stage Alzheimer's and dementia also contributing mood and mental status worse than baseline antibiotics changed to cover both pneumonia and UTI continue trend mood and behavior adjust medications as indicated head CT did not show any new findings Time Spent With Patient Time: 56 minutes 36 minutes used for family discussion, plan of care update, and further care and planning Time with patient: Greater than 35 minutes Subjective Date/time seen: 07/15/22944 Interval history: 07/15/22944 Patient was resting comfortably in bed. Patient did have a pretty active and wild night. Daughter was also present and stated that it was time to place the patient on hospice however she would like the patient treated prior to going on hospice. It is noted that patient did come back with a UTI which was
--- NOTE | 2022-07-15 09:45 | P.PNIM_ITS ---
Progress Note: A&P Assessment and Plan (1) Pneumonia: Code(s): J18.9 - Pneumonia, unspecified organism Status: Acute Assessment and Plan: * Chest xray indicates atelectasis vs infiltrate at the lung base * Azithromycin and ceftriaxone, changed to augmentin and azithromycin at this time * Continue Atrovent and albuterol, changed to PRN as there is no active wheezing shortness of breath noted * Sputum culture ordered if able to collect * Trend labs and vital signs * Adjust therapy as indicated * Apnea link unable to be performed (2) Alzheimer's dementia: Qualifiers: Alzheimer's disease onset: unspecified onset Dementia behavioral disturbance: with behavioral disturbance Qualified Code(s): G30.9 - Alzheimer's disease, unspecified; F02.81 - Dementia in other diseases classified elsewhere with behavioral disturbance Code(s): G30.9 - Alzheimer's disease, unspecified; F02.80 - Dementia in other diseases classified elsewhere, unspecified severity, without behavioral disturbance, psychotic disturbance, mood disturbance, and anxiety Status: Chronic Assessment and Plan: * Chronic, most likely end stage * Continue home Namenda * Seems stable at this time * Head CT does not indicate any current or new changes * Fall precautions (3) Hypertension: Qualifiers: Hypertension type: primary hypertension Qualified Code(s): I10 - Essential (primary) hypertension Code(s): I10 - Essential (primary) hypertension Status: Chronic Assessment and Plan: * BP is 118/62 * Continue amlodipine, irbesartan, metoprolol * Continue to trend BP * Adjust therapy as indicated (4) Chronic anemia: Code(s): D64.9 - Anemia, unspecified Status: Chronic Assessment and Plan: * H/H stable at this time * Currently 10.3/33.5 * Continue to trend * Anemia labs if H/H continues to trend down * Transfuse if hgb <7.0 (5) COPD (chronic obstructive pulmonary disease): Code(s): J44.9 - Chronic obstructive pulmonary disease, unspecified Status: Acute Assessment and Plan: * Chronic * stable at this time * No home medications * Supplemental oxygen provided wean to maintain saturations >90% * Neb treatments ordered (6) Elevated troponin: Code(s): R77.8 - Other specified abnormalities of plasma proteins Status: Acute Assessment and Plan: * Trops are flat * could be related to the PNA * BNP 844 * Not relevant at this point. (7) Urinary tract infection: Code(s): N39.0 - Urinary tract infection, site not specified Status: Acute Assessment and Plan: * UA appeared infectious * Urine culture came back with Enterococcus * Changed to Vanco, sensitivities returned and augmentin started * Trend urine output (8) Acute metabolic encephalopathy: Code(s): G93.41 - Metabolic encephalopathy Status: Acute Assessment and Plan: * most likely related to infectious process with pneumonia and UTI * end-stage Alzheimer's and dementia also contributing * mood and mental status worse than baseline * antibiotics changed to cover both pneumonia and UTI * continue trend mood and behavior * adjust medicatio
[2022-07-15] MEDS: PANTOPRAZOLE 40 MG TABLET PO ×2 (09:49→21:16)
[2022-07-15] MEDS: METOPROLOL SUCCINATE EXT REL 100 MG TABCR PO (09:49)
[2022-07-15] MEDS: DIVALPROEX SODIUM SPRINKLE 125 MG CAP.DR PO ×2 (09:49→21:15)
[2022-07-15] MEDS: CELECOXIB 100 MG CAPSULE PO ×2 (09:49→18:51)
[2022-07-15] MEDS: IRBESARTAN 150 MG TABLET PO (09:49)
[2022-07-15] MEDS: MULTIVITAMINS THERAPEUTIC TAB (*BKC) 1 TABLET PO (09:49)
[2022-07-15] MEDS: MEMANTINE 5 MG TABLET 10 MG PO ×2 (09:49→18:51)
[2022-07-15] MEDS: SACCHAROMYCES BOULARDII 250 MG CAPSULE PO (09:49)
[2022-07-15] MEDS: amLODIPine BESYLATE 5 MG TABLET PO (09:50)
[2022-07-15] MEDS: MUPIROCIN 2% OINT 22 GM TUBE 1 APPLIC TOPICAL ×2 (09:50→21:17)
[2022-07-15] MEDS: DICLOFENAC SODIUM 1% 100 GM GEL (*BKC) 1 APPLIC TOPICAL ×3 (09:50→21:17)
[2022-07-15] MEDS: EUCERIN CREAM 120 GM JAR 1 APPLIC TOPICAL ×2 (09:50→21:17)
[2022-07-15] MEDS: FUROSEMIDE INJ 40 MG/4 ML VIAL IV PUSH (11:04)
[2022-07-15] MEDS: LIDOCAINE 5% PATCH 1 PATCH TRANSDERM (11:04)
[2022-07-15] MEDS: FLUTICASONE/UMECLIDIN/VILANTER 100-62.5-25 MCG ELLIPTA 1 PUFF INHALATION (13:55)
[2022-07-15] MEDS: QUEtiapine FUMARATE 25 MG TABLET PO (21:15)
[2022-07-15] MEDS: PRAVASTATIN SODIUM 20 MG TABLET PO (21:16)
[2022-07-15] MEDS: ZOLPIDEM TARTRATE (*CRX) 5 MG TABLET PO (21:17)
[2022-07-16 03:38] VITALS: BP 118/62; TEMP 36.6
[2022-07-16 08:00] VITALS: BP 96/55; PULSE 113; RESP 16; TEMP 36.6; O2SAT 97
[2022-07-16 08:59] VITALS: O2SAT 94
--- NOTE | 2022-07-16 11:15 | P.DS_ITS ---
DS: Admitting Diagnosis Discharge Date 07/16/22 1115 Admitting Diagnosis Acute respiratory failure, UTI, Acute metabolic encephalopathy, Pneumonia DS: Discharge Diagnosis Discharge Diagnosis (1) Pneumonia: Code(s): J18.9 - Pneumonia, unspecified organism Status: Acute Assessment and Plan: * Chest xray indicates atelectasis vs infiltrate at the lung base * Azithromycin and ceftriaxone, changed to augmentin and azithromycin at this time * Continue Atrovent and albuterol, changed to PRN as there is no active wheezing shortness of breath noted * Sputum culture ordered if able to collect * Trend labs and vital signs * Adjust therapy as indicated * Apnea link unable to be performed (2) Alzheimer's dementia: Qualifiers: Alzheimer's disease onset: unspecified onset Dementia behavioral disturbance: with behavioral disturbance Qualified Code(s): G30.9 - Alzheimer's disease, unspecified; F02.81 - Dementia in other diseases classified elsewhere with behavioral disturbance Code(s): G30.9 - Alzheimer's disease, unspecified; F02.80 - Dementia in other diseases classified elsewhere, unspecified severity, without behavioral disturbance, psychotic disturbance, mood disturbance, and anxiety Status: Chronic Assessment and Plan: * Chronic, most likely end stage * Continue home Namenda * Seems stable at this time * Head CT does not indicate any current or new changes * Fall precautions (3) Hypertension: Qualifiers: Hypertension type: primary hypertension Qualified Code(s): I10 - Essential (primary) hypertension Code(s): I10 - Essential (primary) hypertension Status: Chronic Assessment and Plan: * BP is 118/62 * Continue amlodipine, irbesartan, metoprolol * Continue to trend BP * Adjust therapy as indicated (4) Chronic anemia: Code(s): D64.9 - Anemia, unspecified Status: Chronic Assessment and Plan: * H/H stable at this time * Currently 10.3/33.5 * Continue to trend * Anemia labs if H/H continues to trend down * Transfuse if hgb <7.0 (5) COPD (chronic obstructive pulmonary disease): Code(s): J44.9 - Chronic obstructive pulmonary disease, unspecified Status: Acute Assessment and Plan: * Chronic * stable at this time * No home medications * Supplemental oxygen provided wean to maintain saturations >90% * Neb treatments ordered (6) Elevated troponin: Code(s): R77.8 - Other specified abnormalities of plasma proteins Status: Acute Assessment and Plan: * Trops are flat * could be related to the PNA * BNP 844 * Not relevant at this point. (7) Urinary tract infection: Code(s): N39.0 - Urinary tract infection, site not specified Status: Acute Assessment and Plan: * UA appeared infectious * Urine culture came back with Enterococcus * Changed to Vanco, sensitivities returned and augmentin started * Trend urine output * continue antibiotics for a total of 10 days (8) Acute metabolic encephalopathy: Code(s): G93.41 - Metabolic encephalopathy Status: Acute Assessment and Plan: * most likely related to infectious process with pneumonia and UTI
--- NOTE | 2022-07-16 11:15 | PM.DS ---
DS: Admitting Diagnosis Discharge Date 07/16/22 1115 Admitting Diagnosis Acute respiratory failure, UTI, Acute metabolic encephalopathy, Pneumonia DS: Discharge Diagnosis Discharge Diagnosis (1) Pneumonia: Code(s): J18.9 - Pneumonia, unspecified organism Status: Acute Assessment and Plan: Chest xray indicates atelectasis vs infiltrate at the lung base Azithromycin and ceftriaxone, changed to augmentin and azithromycin at this time Continue Atrovent and albuterol, changed to PRN as there is no active wheezing shortness of breath noted Sputum culture ordered if able to collect Trend labs and vital signs Adjust therapy as indicated Apnea link unable to be performed (2) Alzheimer's dementia: Qualifiers: Alzheimer's disease onset: unspecified onset Dementia behavioral disturbance: with behavioral disturbance Qualified Code(s): G30.9 - Alzheimer's disease, unspecified; F02.81 - Dementia in other diseases classified elsewhere with behavioral disturbance Code(s): G30.9 - Alzheimer's disease, unspecified; F02.80 - Dementia in other diseases classified elsewhere, unspecified severity, without behavioral disturbance, psychotic disturbance, mood disturbance, and anxiety Status: Chronic Assessment and Plan: Chronic, most likely end stage Continue home Namenda Seems stable at this time Head CT does not indicate any current or new changes Fall precautions (3) Hypertension: Qualifiers: Hypertension type: primary hypertension Qualified Code(s): I10 - Essential (primary) hypertension Code(s): I10 - Essential (primary) hypertension Status: Chronic Assessment and Plan: BP is 118/62 Continue amlodipine, irbesartan, metoprolol Continue to trend BP Adjust therapy as indicated (4) Chronic anemia: Code(s): D64.9 - Anemia, unspecified Status: Chronic Assessment and Plan: H/H stable at this time Currently 10.3/33.5 Continue to trend Anemia labs if H/H continues to trend down Transfuse if hgb <7.0 (5) COPD (chronic obstructive pulmonary disease): Code(s): J44.9 - Chronic obstructive pulmonary disease, unspecified Status: Acute Assessment and Plan: Chronic stable at this time No home medications Supplemental oxygen provided wean to maintain saturations >90% Neb treatments ordered (6) Elevated troponin: Code(s): R77.8 - Other specified abnormalities of plasma proteins Status: Acute Assessment and Plan: Trops are flat could be related to the PNA BNP 844 Not relevant at this point. (7) Urinary tract infection: Code(s): N39.0 - Urinary tract infection, site not specified Status: Acute Assessment and Plan: UA appeared infectious Urine culture came back with Enterococcus Changed to Vanco, sensitivities returned and augmentin started Trend urine output continue antibiotics for a total of 10 days (8) Acute metabolic encephalopathy: Code(s): G93.41 - Metabolic encephalopathy Status: Acute Assessment and Plan: most likely related to infectious process with pneumonia and UTI end-stage Alzheimer's and dementia also contributing mood and mental status worse than baseline antibiotics changed to cover both pneumonia and UTI continue trend mood and behavior adjust medications as indicated head CT did not show any new findings (9) Acute respiratory failure: Code(s): J96.00 - Acute respiratory failure, unspecified whether with hypoxia or hypercapnia Status: Acute Assessment and Plan: ?patient noted to be 86% on room air ?supplemental oxygen provided ?no active wheezing noted ?wean oxygen to maintain saturations greater than 90% ?most likely secondary to pneum
--- NOTE | 2022-07-16 11:47 | PCRCNOTE ---
Window of time for administration has passed. See next scheduled administration.
[2022-07-16] MEDS: MUPIROCIN 2% OINT 22 GM TUBE 1 APPLIC TOPICAL (12:11)
[2022-07-16] MEDS: DICLOFENAC SODIUM 1% 100 GM GEL (*BKC) 1 APPLIC TOPICAL (12:11)
[2022-07-16] MEDS: AMOXICILLIN/CLAVULANATE K 875-125 MG TAB 1 TABLET PO (12:14)
[2022-07-16] MEDS: IRBESARTAN 150 MG TABLET PO (12:14)
[2022-07-16] MEDS: MEMANTINE 5 MG TABLET 10 MG PO (12:14)
[2022-07-16] MEDS: PANTOPRAZOLE 40 MG TABLET PO (12:14)
[2022-07-16] MEDS: METOPROLOL SUCCINATE EXT REL 100 MG TABCR PO (12:15)
[2022-07-16] MEDS: MULTIVITAMINS THERAPEUTIC TAB (*BKC) 1 TABLET PO (12:15)
[2022-07-16] MEDS: AZITHROMYCIN 250 MG TABLET 500 MG PO (12:15)
[2022-07-16] MEDS: amLODIPine BESYLATE 5 MG TABLET PO (12:16)
[2022-07-16] MEDS: CELECOXIB 100 MG CAPSULE PO (12:16)
[2022-07-16] MEDS: DIVALPROEX SODIUM SPRINKLE 125 MG CAP.DR PO (12:16)
[2022-07-16] MEDS: SACCHAROMYCES BOULARDII 250 MG CAPSULE PO (12:17)
[2022-07-16 12:42] VITALS: O2SAT 97
== END 2022-07-16 14:45 | disposition hospice, home (50) | DRG 193 ==
LOC: ANHED 13:03 → ANHIMU 13:30
PROVIDERS: Nurse Practitioner; Admitting Provider Family Medicine; Emergency Provider Emergency Medicine; PCP Nurse Practitioner Family; Visit Provider Nurse Practitioner
DX: J18.9 Pneumonia, unspecified organism (principal); G93.41 Metabolic encephalopathy; J96.00 Acute respiratory failure, unspecified whether with hypoxia or hypercapnia; N17.9 Acute kidney failure, unspecified; B95.2 Enterococcus as the cause of diseases classified elsewhere; R47.01 Aphasia; N39.0 Urinary tract infection, site not specified; D64.9 Anemia, unspecified; E78.00 Pure hypercholesterolemia, unspecified; E87.6 Hypokalemia; F41.9 Anxiety disorder, unspecified; F02.80 Dementia in other diseases classified elsewhere, unspecified severity, without behavioral disturbance, psychotic disturbance, mood disturbance, and anxiety; G30.9 Alzheimer's disease, unspecified; I73.9 Peripheral vascular disease, unspecified; I10 Essential (primary) hypertension; J44.9 Chronic obstructive pulmonary disease, unspecified; K21.9 Gastro-esophageal reflux disease without esophagitis; R77.8 Other specified abnormalities of plasma proteins; Z66 Do not resuscitate; Z85.51 Personal history of malignant neoplasm of bladder; Z87.891 Personal history of nicotine dependence; Z86.12 Personal history of poliomyelitis; Z95.820 Peripheral vascular angioplasty status with implants and grafts; Z86.16 Personal history of COVID-19
CPT/HCPCS: 36415; 36600; 70450; 71045; 80053; 81001; 82805; 82948; 83605; 83735; 83880; 84443; 84484; 85025; 85055; 87040; 87086; 87147; 87181; 87186; 93005; 94640; 96365; 99285; A9270; J0456; J0696; J1940; J2060; J3370; J3480; J7040; J7120

== ENCOUNTER 2023-07-15 16:39 | Emergency (ER) | payer MEDICARE, SELFPAY ==
--- NOTE | ~2023-07-15 | XR_ITS ---
EXAMINATION: XR chest 1V portable INDICATION: Fatigue TECHNIQUE: Portable AP chest at 2116 hours COMPARISON: 07/13/2022 FINDINGS: The lungs are free of acute opacities. No pleural effusion or pneumothorax. The cardiomedia stinal silhouette is normal. Suture anchors are noted in the left humeral head. IMPRESSION: 1. No acute cardiopulmonary abnormality. Reviewed, dictated and finalized at location F.
[2023-07-15 16:40] VITALS: BP 147/62; PULSE 79; RESP 16; TEMP 36.6; O2SAT 97
--- NOTE | 2023-07-15 16:49 | ED.WEAKNESS ---
HPI - Weakness General Chief complaint: Weakness Stated complaint: WEAK Time Seen by Provider: 07/15/23 16:49 Focused HPI: Patient is an 88 y/o female who presents to the ED with c/o increased weakness. Patient's daughter at bedside providing information. Patient has history of vascular dementia, alert to self at times. Daughter reports patient has been increasingly weak and fatigued over the last couple of days, sleeping up to 14-16 hours per day. She is currently residing at [facility] and is on hospice care. Daughter reports she has found patient in soiled depends several times on recent visits. She is concerned for UTI. Daughter denies patient having any recent vomiting, known fevers. No recent falls that she is aware of. GENERAL: Elderly, frail, thin, and in no acute distress. HEAD: Normocephalic, atraumatic. CHEST: Clear to auscultation. ?No respiratory distress. HEART: Regular rate and rhythm.? NEURO: ?Alert. Confused. Word salad. Able to move extremities, does not follow commands. Patient screened in triage and initial orders placed.? ?Additional care and disposition to be based upon?diagnostic testing and treatment. Source: family Mode of arrival: ambulatory Limitations: dementia Related Data Home Medications Medication Instructions Recorded Confirmed pantoprazole 40 mg tablet,delayed 40 mg PO BID 07/26/21 07/13/22 release pravastatin 20 mg tablet 20 mg PO HS 07/26/21 07/13/22 amlodipine 5 mg tablet 5 mg PO DAILY 07/27/21 07/13/22 celecoxib 100 mg capsule 100 mg PO BID 07/27/21 07/13/22 emollient combination no.72 1 ea topical BID 07/27/21 07/13/22 (Eucerin Intensive Repair lotion) loratadine 10 mg tablet 10 mg PO DAILY 07/27/21 07/13/22 memantine 5 mg tablet 10 mg PO BID 07/27/21 07/13/22 metoprolol succinate 100 mg 100 mg PO DAILY 07/27/21 07/13/22 tablet,extended release 24 hr multivitamin 1 tablet PO DAILY 07/27/21 07/13/22 mupirocin 2 % topical ointment 1 applic topical BID 07/27/21 07/13/22 diclofenac sodium 1 % topical gel 1 ea topical QID 12/30/21 07/13/22 divalproex 125 mg capsule,delayed 125 mg PO BID 12/30/21 07/13/22 release sprinkle eszopiclone 2 mg tablet 2 mg PO HS 12/30/21 07/13/22 Saccharomyces boulardii 250 mg 250 mg PO DAILY 07/13/22 07/13/22 capsule (Florastor) acetaminophen 325 mg capsule 1,000 mg PO Q8H PRN Pain 07/13/22 07/13/22 (Tylenol) albuterol sulfate 90 mcg/actuation 2 puff inhalation Q4H PRN 07/13/22 07/13/22 aerosol inhaler Shortness Of Breath benzonatate 100 mg capsule 100 mg PO Q8H PRN Cough 07/13/22 07/13/22 budesonide 160 mcg-glycopyr 9 2 inh inhalation BID 07/13/22 07/13/22 mcg-formot 4.8 mcg/actuation HFA inhaler lidocaine HCl 4 % (40 mg/mL) 1 applic topical DAILY PRN Pain 07/13/22 07/13/22 mucosal solution Allergies Allergy/AdvReac Type Severity Reaction Status Date / Time HI Inhibitors Allergy Unknown Verified 07/14/22 06:53 atorvastatin Allergy Unknown Verified 07/14/22 06:53 famotidine Allergy Unknown Verified 07/14/22 06:53 ibuprofen Allergy Unknown Verified 07/14/22 06:53 methylprednisolone Allergy Unknown Verified 07/14/22 06:53 rosuvastatin Allergy Unknown Verified 07/14/22 06:53 [facility] Past Medical History Medical History Alzheimer's dementia COPD (chronic obstructive pulmonary disease) E coli infection Fractured tarsal bone GERD (gastroesophageal reflux disease) Hypercholesterolemia Hypertension Left wrist fracture Neck fracture Pelvis fracture Peripheral vascular disease Polio Urinary bladder cancer 2017 Surgical History Surgical History H/O cardiac catheterization H/O cystoscopy S/P peripheral artery angioplasty with stent placement S/P rotator cuff repair Family History Family History Father Heart disease Mother Heart disease Soci
[2023-07-15 17:26] LABS: Basophils Percent Auto 0.6 % (0.2-1.2); Eosinophils Absolute Auto 0.1 K/mm3 (0-0.3); Eosinophils Percent Auto 2.3 % (0-4.4); Hematocrit 43.9 % (37.0-47.0); Hemoglobin 13.8 g/dL (12.0-15.0); Immature Platelet Fraction Pct 4.8 % (0.9-11.2); Lymphocytes Absolute Auto 0.86 K/mm3 (0.9-3.2); Lymphocytes Percent Auto 27.7 % (18.3-44.2); Mean Corpuscular HGB Conc 31.4 g/dl (32-36); Mean Corpuscular Hemoglobin 27.4 pg (26-34); Mean Corpuscular Volume 87.1 fl (80-100); Mean Platelet Volume 11.4 fl (7.4-10.4); Monocytes Absolute Auto 0.2 K/mm3 (0.1-0.6); Monocytes Percent Auto 7.1 % (2.6-8.5); Neutrophils Absolute Auto 1.9 K/mm3 (1.3-6.7); Neutrophils Percent Auto 62.3 % (45.5-73.1); Platelet Count Result 96 k/mm3 (150-375); Red Blood Count 5.04 M/mm3 (4.2-5.4); Red Cell Distribution Width 15.2 % (11.5-14.5); White Blood Count 3.1 K/mm3 (4.5-10.0)
[2023-07-15 17:34] LABS: Alanine Aminotransferase 13 U/L (6-35); Albumin Level 4.1 g/dL (3.5-5.1); Alkaline Phosphatase 69 U/L (38-126); Anion Gap 5 mmol/L (8-16); Aspartate Amino Transferase 28 U/L (14-36); Bilirubin,Total 0.4 mg/dL (0.2-1.3); Blood Urea Nitrogen 44 mg/dL (7-17); Carbon Dioxide 28 mmol/L (22-30); Chloride 108 mmol/L (98-107); Estimated Glomerular Filt Rate > 60; Glucose 118 mg/dL (65-110); Potassium 4.6 mmol/L (3.4-5.0); Sodium 141 mmol/L (137-145)
[2023-07-15 17:49] LABS: Platelet Estimate Decreased (Adequate); Schistocytes None Seen
[2023-07-15 19:46] LABS: Appearance Urine Clear (Clear); Bacteria Urine Rare /hpf; Bilirubin Urine Negative (Negative); Blood Urine 1+ (Negative); Color Urine Yellow (Yellow); Glucose Urine UA Negative (Negative); Ketones Urine Negative (Negative); Leukocyte Esterase Ur 3+ LEU/UL (Negative); Nitrate Urine Negative (Negative); Non Pathogenic Casts 0-2; Protein Urine Trace mg/dL (Negative); Squamous Epithelial Cell Urine None Seen /hpf (Few); Urobilinogen Urine 0.2 mg/dL (<2.0); WBC Urine 0-5 /hpf (0-3); pH Urine 7.5 (5.0-9.0)
[2023-07-15 19:48] LABS: Mucus Urine Present /lpf; Need Manual Microscopic Reviewed
[2023-07-15 19:49] LABS: Add Urine Microscopic? YES; Specific Grav Ur 1.001 (1.001-1.035)
--- NOTE | 2023-07-15 21:07 | ED.WEAKNESS ---
HPI - Weakness General Chief complaint: Weakness Stated complaint: WEAK Time Seen by Provider: 07/15/23 16:49 Source: family Mode of arrival: ambulatory Limitations: dementia History of Present Illness HPI Narrative: 88-year-old female with a history of vascular dementia and hypertension who is normally A&O times 0 presents with her daughter at bedside for increasing fatigue for the past week. patient's daughter provides the following history. States patient is on hospice, however she plans to fire hospice tomorrow morning because she feels like they have not been doing good work. The patient lives at [address] States over the past week the patient has been sleeping 14 hours a day and says she does not feel bed. She is unable to elaborate what is bothering her. Patient's daughter states she has had some cough when she drinks fluids and some diarrhea. She denies known fever , melena or hematochezia. Patient's daughter states she is concerned the patient has UTI. Related Data Home Medications Medication Instructions Recorded Confirmed pantoprazole 40 mg tablet,delayed 40 mg PO BID 07/26/21 07/13/22 release pravastatin 20 mg tablet 20 mg PO HS 07/26/21 07/13/22 amlodipine 5 mg tablet 5 mg PO DAILY 07/27/21 07/13/22 celecoxib 100 mg capsule 100 mg PO BID 07/27/21 07/13/22 emollient combination no.72 1 ea topical BID 07/27/21 07/13/22 (Eucerin Intensive Repair lotion) loratadine 10 mg tablet 10 mg PO DAILY 07/27/21 07/13/22 memantine 5 mg tablet 10 mg PO BID 07/27/21 07/13/22 metoprolol succinate 100 mg 100 mg PO DAILY 07/27/21 07/13/22 tablet,extended release 24 hr multivitamin 1 tablet PO DAILY 07/27/21 07/13/22 mupirocin 2 % topical ointment 1 applic topical BID 07/27/21 07/13/22 diclofenac sodium 1 % topical gel 1 ea topical QID 12/30/21 07/13/22 divalproex 125 mg capsule,delayed 125 mg PO BID 12/30/21 07/13/22 release sprinkle eszopiclone 2 mg tablet 2 mg PO HS 12/30/21 07/13/22 Saccharomyces boulardii 250 mg 250 mg PO DAILY 07/13/22 07/13/22 capsule (Florastor) acetaminophen 325 mg capsule 1,000 mg PO Q8H PRN Pain 07/13/22 07/13/22 (Tylenol) albuterol sulfate 90 mcg/actuation 2 puff inhalation Q4H PRN 07/13/22 07/13/22 aerosol inhaler Shortness Of Breath benzonatate 100 mg capsule 100 mg PO Q8H PRN Cough 07/13/22 07/13/22 budesonide 160 mcg-glycopyr 9 2 inh inhalation BID 07/13/22 07/13/22 mcg-formot 4.8 mcg/actuation HFA inhaler lidocaine HCl 4 % (40 mg/mL) 1 applic topical DAILY PRN Pain 07/13/22 07/13/22 mucosal solution Allergies Allergy/AdvReac Type Severity Reaction Status Date / Time HI Inhibitors Allergy Unknown Verified 07/14/22 06:53 atorvastatin Allergy Unknown Verified 07/14/22 06:53 famotidine Allergy Unknown Verified 07/14/22 06:53 ibuprofen Allergy Unknown Verified 07/14/22 06:53 methylprednisolone Allergy Unknown Verified 07/14/22 06:53 rosuvastatin Allergy Unknown Verified 07/14/22 06:53 Review of Systems Review of Systems: ROS unobtainable: Yes unobtainable due to mental status PMFSH Past Medical History Medical History Alzheimer's dementia COPD (chronic obstructive pulmonary disease) E coli infection Fractured tarsal bone GERD (gastroesophageal reflux disease) Hypercholesterolemia Hypertension Left wrist fracture Neck fracture Pelvis fracture Peripheral vascular disease Polio Urinary bladder cancer 2017 Surgical History Surgical History H/O cardiac catheterization H/O cystoscopy S/P peripheral artery angioplasty with stent placement S/P rotator cuff repair Family History Family History Father Heart disease Mother Heart disease Social History Social History Social History: The patient resides a
[2023-07-15 21:58] LABS: Influenza A QL RT-PCR Negative (Negative); Influenza B QL RT-PCR Negative (Negative); RSV RNA, RT-PCR Negative (Negative); SARS-CoV-2 RNA PCR Negative (Negative)
== END 2023-07-15 22:44 | disposition hospice, home (50) ==
LOC: ANHED 22:30
PROVIDERS: Physician Assistant; Emergency Provider Physician Assistant
DX: R53.83 Other fatigue (principal); Z20.822 Contact with and (suspected) exposure to COVID-19; F01.50 Vascular dementia, unspecified severity, without behavioral disturbance, psychotic disturbance, mood disturbance, and anxiety; J44.9 Chronic obstructive pulmonary disease, unspecified; I10 Essential (primary) hypertension; I73.9 Peripheral vascular disease, unspecified; E78.00 Pure hypercholesterolemia, unspecified; K21.9 Gastro-esophageal reflux disease without esophagitis; Z66 Do not resuscitate; Z95.5 Presence of coronary angioplasty implant and graft; Z85.51 Personal history of malignant neoplasm of bladder; Z86.12 Personal history of poliomyelitis; Z87.891 Personal history of nicotine dependence
CPT/HCPCS: 36415; 71045; 80053; 85025; 85055; 87637; 99283